=== PATIENT | male | born 1955 | race Caucasian/White ===

== ENCOUNTER → 2024-08-13 10:56 | Outpatient (REF) | payer MEDICARE, SELFPAY ==
--- NOTE | 2024-08-09 14:42 | PTCARENOTE ---
pt arrived 08/10/24 for port placement, on arrival and assessment, pt states he had a cup of coffee and did not stop his tube feedings until 9am for an 11am procedure. per protocol, cannot administer moderate sedation. pt's procedure rescheduled to
Sunday 08/13. instructions given, pt verbalizes understanding.
[2024-08-13 11:21] VITALS: BP 116/63; BP_SYST 70
[2024-08-13] MEDS: ANCEF 10 IV (12:13)
[2024-08-13 13:20] VITALS: BP 107/71
[2024-08-13 13:25] VITALS: BP 111/73
[2024-08-13 13:30] VITALS: BP 104/62
[2024-08-13 13:35] VITALS: BP 115/74
== END ==
LOC: RADI 10:56
PROVIDERS: ATTENDING PHYSICIAN Internal Medicine Hematology & Oncology
DX: C15.5 Malignant neoplasm of lower third of esophagus (principal)
CPT/HCPCS: 36561; 76937; 77001; 99152; 99153; C1788

== ENCOUNTER → 2024-08-20 14:30 | Outpatient (REF) | payer MEDICARE, SELFPAY ==
[2024-08-20 14:40] LABS: % Basophils 0.3 % (0-2); % Eosinophils 3.8 % (0-6); % Immature Granulocytes 0.5 % (0-0.5); % Monocytes 10.3 % (1.7-9.3); % Neutrophils 70.1 % (42.2-75.2); Absolute Eosinophils 0.3 10^3/uL (0-0.7); Absolute Monocytes 0.7 10^3/uL (0.1-0.6); Absolute Neutrophils 4.6 10^3/uL (1.4-6.5); Hematocrit 38.6 % (39.0-52.0); Hemoglobin 12.7 g/dL (13.0-18.0); Mean Corp Hgb Conc. 32.9 g/dL (33.0-37.0); Mean Corpuscular Hgb 31.3 pg (27.0-31.0); Mean Corpuscular Volume 95.1 fL (80.0-94.0); Mean Platelet Volume 10.2 fL (7.4-10.4); Platelet Count 201 10^3/uL (130-400); Red Blood Cell Count 4.06 10^6/uL (4.70-6.10); Red Cell Dist. Width 12.6 % (11.5-14.5); White Blood Cell Count 6.6 10^3/uL (4.8-10.8)
[2024-08-20 15:14] LABS: ALT (SGPT) 20 U/L (0-50); AST (SGOT) 20 U/L (17-59); Albumin 3.8 g/dl (3.5-5.0); Alkaline Phosphatase 104 U/L (38-126); Blood Urea Nitrogen 21 mg/dl (9-20); Carbon Dioxide 25 mmol/L (22-30); Chloride 100 mmol/L (98-107); Glucose 108 mg/dl (70-99); Potassium 4.2 mmol/L (3.5-5.1); Sodium 135 mmol/L (135-145); Total Bilirubin 0.5 mg/dl (0.2-1.3); Total Protein 6.3 g/dl (6.3-8.2); eGFR > 60.00
== END ==
LOC: OIDL 14:30
PROVIDERS: ATTENDING PHYSICIAN Internal Medicine Hematology & Oncology
DX: C15.5 Malignant neoplasm of lower third of esophagus (principal)
CPT/HCPCS: 80053; 85025

== ENCOUNTER → 2024-08-22 14:32 | Outpatient (REF) | payer MEDICARE, SELFPAY ==
[2024-08-22 16:38] LABS: % Basophils 0.1 % (0-2); % Eosinophils 0.2 % (0-6); % Immature Granulocytes 7.5 % (0-0.5); % Lymphocytes 3.2 % (20.5-51.1); Absolute Eosinophils 0.1 10^3/uL (0-0.7); Absolute Lymphocytes 0.8 10^3/uL (1.2-3.4); Absolute Monocytes 2.6 10^3/uL (0.1-0.6); Absolute Neutrophils 20.6 10^3/uL (1.4-6.5); Hematocrit 41.5 % (39.0-52.0); Hemoglobin 13.9 g/dL (13.0-18.0); Mean Corp Hgb Conc. 33.5 g/dL (33.0-37.0); Mean Corpuscular Hgb 31.7 pg (27.0-31.0); Mean Corpuscular Volume 94.7 fL (80.0-94.0); Nucleated Red Blood Cells % 0.5 % (-); Platelet Count 280 10^3/uL (130-400); Red Blood Cell Count 4.38 10^6/uL (4.70-6.10); Red Cell Dist. Width 13.2 % (11.5-14.5)
[2024-08-22 17:06] LABS: ALT (SGPT) 22 U/L (0-50); AST (SGOT) 28 U/L (17-59); Albumin 4.1 g/dl (3.5-5.0); Alkaline Phosphatase 168 U/L (38-126); Blood Urea Nitrogen 26 mg/dl (9-20); Calcium 9.7 mg/dl (8.4-10.2); Carbon Dioxide 21 mmol/L (22-30); Chloride 96 mmol/L (98-107); Glucose 161 mg/dl (70-99); Magnesium 2.1 mg/dl (1.6-2.3); Potassium 4.4 mmol/L (3.5-5.1); Sodium 130 mmol/L (135-145); Total Bilirubin 0.7 mg/dl (0.2-1.3); Total Protein 6.6 g/dl (6.3-8.2); eGFR > 60.00
== END ==
LOC: OIDL 14:32
PROVIDERS: ATTENDING PHYSICIAN Internal Medicine Hematology & Oncology
DX: C15.5 Malignant neoplasm of lower third of esophagus (principal)
CPT/HCPCS: 80053; 83735; 85025

== ENCOUNTER 2024-08-24 23:23 | Inpatient (IN) | payer MEDICARE, SELFPAY ==
[2024-08-24 23:37] VITALS: BP 127/70; BMI 20.9
[2024-08-25] VITALS (8 sets, daily range): BP systolic 123–137; BP diastolic 61–75; PULSE 91–93; O2SAT 96–97; BMI 20.9
--- NOTE | 2024-08-25 00:33 | HPS.HSE ---
Addendum entered and electronically signed by Michael [facility] DO 08/25/24 01:18:
A/P:
Anemia
- Hgb = 10.1 compared to recent outpatient labs of 12-13.
- ? GI blood loss given stools described as 'black' and known distal esophageal tumor.
- ? chemo effect / cytopenia.
- IV PPI BID for now.
- Follow H&H for changes.
- GI eval as noted.
Original Note:
Family Physician
-
Family Physician: INTERVIEWE UNKNOWN - PT NOT
Chief Complaint
-
N/V/D
History of Present Illness
Patient is a 69y M with PMH significant for recently diagnosed esophageal cancer who presents to in transfer from [facility] where he was admitted for diarrhea and weakness. Patient was recently diagnosed with lower esophageal cancer and
has been followed by Dr. Ramos. He completed his initial treatment of chemo (FLOT) 10 days ago. Plan is for 4 courses of chemo, surgical resection and an additional 4 courses of chemo. Patient notes that he received GCSF following the chemo
treatment (on Tuesday of this week). On Tuesday and , patient noted development of dark / black diarrhea x multiple episodes. He became progressively weak and fatigued. He also had nausea with a few episodes of dark colored emesis.
Patient called 911 on and was taken to [facility] for evaluation.
At that facility he was treated for diverticulitis, SBO, CODY and RUL Pneumonia.
NG was placed and patient states that he was given IVFs and antibiotics.
Reviewed available records from [facility]. Patient treated for sigmoid diverticulitis by CT scan as well as SBO. IV cefepime, IV PPI and NG decompression.
Significant CODY with SCR > 3 despite IVFs. Baseline reportedly around 1.5.
Lactate level significantly elevated on initial admission at 6.5 - now 2.0 today.
Patient states that he feels improved at this time from his initial presentation to [facility].
He does state that he continues to have loose, dark colored stools multiple times per day.
He denies any abdominal pain, fevers / chills or other focal symptoms. He has no respiratory complaints.
Medical History
Past Medical History
Past Medical History: Reports Other
Additional Past Medical History:
Esophageal Cancer
Skin Cancer
Past Surgical History: Reports Other
Additional Past Surgical History:
R ACW Port Placement
J Tube Placement
Skin Cancer Excision
Social History
Tobacco: Non-smoker
Alcohol: Daily (History of daily alcohol use: 2-3 mixed drinks daily and 'some shots'. No alcohol since cancer diagnosis July 2024.)
Family History
Family History: Other (Mother: Breast Cancer, Colon Cancer, DM)
Allergies / Home Medications
Allergies reflects when Allergies were last updated in [facility].
Home Medications with original date entered in [facility]
Allergy/Medication List:
No chronic meds prior to cancer diagnosis.
Now on chemo, GCSF and supportive medications.
No hospital med list to review from [facility].
Review of Systems
-
History Source: Patient
A 12 point ROS was completed and negative except as noted: Yes
Constitutional: Reports Weight Loss and Fatigue; Denies Fever or Chills
EENT: Denies Sore Throat
Respiratory: Denies Cough or Trouble Breathing
Cardiac: Denies Chest Pain or Palpitations
Abdomen/GI: Reports Nausea, Vomiting, Diarrhea and Black Stools; Denies Abdominal Pain
: Denies Dysuria or Frequency
Musculoskeletal: Denies Joint Pain or Edema
Neurological: Denies Dizzy or Headache
Psych: Denies Depression or Anxiety
Physical Exam
Vital Signs
Vital Signs
Temp Pulse Resp BP Pulse Ox
98.0 F 92 18 127/70 97
08/24/24 23:37 08/24/24 23:37 08/24/24 23:37 08/24/24 23:37 08/24/24 23:37
Physical Exam
General: Other (69y M in no acute distress.)
HEENT: Moist mucous membranes, PERRLA and Other (NG in place.)
Respiratory: Clear; No Wheezes, Rales or Rhonchi
Cardiac: S1/S2 and Regular Rhythm; No Murmur
GI: Other (Softly distended. Hyperactive bowel sounds. J-tube in place draining bilious fluid to gravity. No focal tenderness.)
Musculoskeletal: No Clubbing, No Cyanosis and No Edema
Neuro: AO x 3
Impression/Plan
-
A/P: Patient is a 69y M with PMH significant for recently diagnosed esophageal cancer s/p initial course of chemo who was transferred to from [facility] where he initially presented on 08/23/24 c/o N/V/D.
N/V/D
Sigmoid Diverticulitis
SBO v Enteritis
- Admit for further evaluation and treatment.
- CT scan reviewed - fluid filled loops of bowel from esophagus / stomach through the colon.
- Some wall thickening at proximal sigmoid colon - ? acute diverticulitis.
- Seems most c/w gastroenteritis > SBO, especially given profuse passage of stools.
- Will continue abx for now with Zosyn alone - though symptoms may all be secondary to chemo effect / enteritis.
- Continue supportive care with IVFs, antiemetics, etc.
- Heme test stools given black appearance.
- GI and Oncology evaluations for additional recommendations.
- Will ask Radiology to upload CT images for formal local interpretation.
- Maintain NG to LIMS and J-tube to gravity for now. Defer to GI for further recommendations.
CODY
Lactic Acidosis
- SCr = 3.3 and lactate = 6.5 on initial presentation.
- Lactate since improved through SCr remains elevated.
- Continue IVF support and follow I/Os, daily weights, etc.
- Bladder scan protocol and cath if needed.
- Continue to follow for changes in labs / lytes.
- Seems that CODY, acidosis, etc are largely due to hypovolemia from GI losses.
Non-Ischemic Myocardial Injury
- Troponin somewhat elevated at [facility]. No complaints of chest pain / dyspnea.
- Normal EKG.
- Trended down after admission (25 to 19). No need to follow further unless new symptoms develop.
Leukocytosis
- ? secondary to infection / diverticulitis versus GCSF which patient received earlier this week.
- Follow for return to baseline.
DM-II
- Follow glucose and cover with SSI as needed.
- Not on any medications for DM prior to this admission.
- A1C at [facility] was 6.6%.
Distal Esophageal Cancer
- s/p 1st cycle of chemo.
- Continue PPI.
- Oncology eval as noted above.
- Resume nutrition support via TF once GI symptoms are improved.
DVT Prophylaxis: SCDs
Code Status: Full
[2024-08-25 00:51] LABS: Hematocrit 30.8 % (39.0-52.0); Hemoglobin 10.1 g/dL (13.0-18.0); Mean Corp Hgb Conc. 32.8 g/dL (33.0-37.0); Mean Corpuscular Hgb 30.7 pg (27.0-31.0); Mean Corpuscular Volume 93.6 fL (80.0-94.0); Mean Platelet Volume 10.3 fL (7.4-10.4); Platelet Count 206 10^3/uL (130-400); Red Blood Cell Count 3.29 10^6/uL (4.70-6.10); Red Cell Dist. Width 13.6 % (11.5-14.5); White Blood Cell Count 25.5 10^3/uL (4.8-10.8)
[2024-08-25 00:55] LABS: Blood Urea Nitrogen 65 mg/dl (9-20); Calcium 8.4 mg/dl (8.4-10.2); Carbon Dioxide 18 mmol/L (22-30); Chloride 119 mmol/L (98-107); Estimated Creatinine Clearance 30 ml/min; Glucose 89 mg/dl (70-99); Potassium 3.9 mmol/L (3.5-5.1); Sodium 142 mmol/L (135-145); eGFR 33.66
[2024-08-25] MEDS: ZOSYN 50 IV ×4 (01:22→21:39)
[2024-08-25] MEDS: NSS 1000 IV ×2 (01:49→08:54)
[2024-08-25 02:06] LABS: Absolute Neutrophils -Man Diff 18.8 10^3/uL (1.4-6.5); Band Neutrophils 24 % (0-3); Lymphocytes 10 % (20-51); Metamyelocytes 5 % (-); Monocytes 9 % (2-9); Myelocytes 2 % (-); Segmented Neutrophils 50 % (42-75)
[2024-08-25 02:07] LABS: Nucleated Red Blood Cells 4 (-); Platelets Checked Yes
[2024-08-25 02:10] LABS: Total Cells Counted 100; Toxic Granulation 1+
[2024-08-25] MEDS: PROTONIX IV 40 MG IV ×2 (02:11→14:34)
[2024-08-25] MEDS: NSS (PRESERVATIVE FREE) 10 ML IV ×2 (02:11→14:34)
[2024-08-25 02:12] LABS: Normal RBC Morphology Yes
--- NOTE | 2024-08-25 05:20 | CON.ONC ---
Impression
Impression
trend CBC-- continue NG/ J tube drainage
Plan
Plan
await recovery following bowel rest
Patient History
History of Present Illness
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
outpatient PET CT scan 07/20/2024 revealed evidence of a GE junction lesion measuring 4.5 x 2.7 cm with regional babak involvement.. He had a J-tube placed he has had excellent nutritional support with 14-hour day feeding and no weight loss. He
initiated FLOT chemotherapy w/ CSF support 08/14/2024. He presented to [facility] ER following repeated episodes of n/v/ diarrhea for which imaging suggested bowel obstruction/diverticulitis for which transfer was advised.
Past-Medical/Surgical History
as per HPI
Patient Medication
�Medication �Instructions �Recorded �Confirmed �Last Taken �Type
Unobtainable 08/25/24 08/25/24 Unknown History
Active Medications
Generic Name Dose Route Start Last Admin
Trade Name Freq PRN Reason Stop Dose Admin
Dextrose 12.5 grams 08/25/24 01:02
Dextrose 50% (0.5 Grams/Ml) 50 Ml Syringe IV 09/22/24 01:01
[id number] PRN
hypoglycemia
Protocol
Glucagon 1 mg 08/25/24 01:02
Glucagon 1 Mg Vial IM 09/22/24 01:01
PRN PRN
hypoglycemia
Protocol
Sodium Chloride 1,000 mls @ 125 mls/hr 08/25/24 00:30 08/25/24 01:49
Nss IV 1,000 mls
.Q8H JUAN MANUEL Administration
Piperacillin Sod/Tazobactam Sod 2.25 grams in 50 mls @ 100 mls/hr 08/25/24 02:00 08/25/24 01:22
Zosyn IV 50 mls
Q6H JUAN MANUEL Administration
Insulin Aspart 0 units 08/25/24 07:30
Insulin Aspart Low Resistance 300 Units/3 Ml Pen.Injctr SC 09/22/24 07:29
AC JUAN MANUEL
Protocol
Ondansetron HCl 4 mg 08/25/24 00:24
Ondansetron 4 Mg/2 Ml Vial IV 09/22/24 00:23
Q6HPRN PRN
nausea and vomiting
Pantoprazole Sodium 40 mg 08/25/24 02:00 08/25/24 02:11
Pantoprazole Sodium 40 Mg/10 Ml Vial IV 09/22/24 01:59 40 mg
Q12H JUAN MANUEL Administration
Sodium Chloride 10 ml 08/25/24 02:00 08/25/24 02:11
Sodium Chloride 0.9% (Preservative Free) 10 Ml Vial IV 09/22/24 01:59 10 ml
Q12H JUAN MANUEL Administration
Sodium Chloride 0 flush 08/25/24 01:00
Sodium Chloride 0.9% (Flush) Syringe IV 09/22/24 00:59
PER PROTOCOL JUAN MANUEL
Review of Systems
-
History Source: Patient
All Other Systems: Reviewed and Negative (animated-- other than NG/ J tube drainage no significant pain)
Physical Exam
-
General: No Apparent Distress
HEENT: Moist Mucous Membranes
Cardiology: Normal Sinus Rhythm
Pulmonary: Clear
GI: Normal Bowel Sounds and No Organomegaly
Genito-Urinary: No Costovertebral Tenderness
Musculoskeletal: Edema. Left Upper Extrem and Edema, Right Lower Extrem
Neurology: No Lateralizing Symptoms
Labs
Lab Results
WBC 25.5 10^3/uL (4.8-10.8) H 08/25/24 00:35
RBC 3.29 10^6/uL (4.70-6.10) L 08/25/24 00:35
Hgb 10.1 g/dL (13.0-18.0) L D 08/25/24 00:35
Hct 30.8 % (39.0-52.0) L 08/25/24 00:35
MCV 93.6 fL (80.0-94.0) 08/25/24 00:35
MCH 30.7 pg (27.0-31.0) 08/25/24 00:35
MCHC 32.8 g/dL (33.0-37.0) L 08/25/24 00:35
RDW 13.6 % (11.5-14.5) 08/25/24 00:35
Plt Count 206 10^3/uL (130-400) D 08/25/24 00:35
MPV 10.3 fL (7.4-10.4) 08/25/24 00:35
Creatinine 2.1 mg/dL (0.7-1.3) H 08/25/24 00:35
Vital Signs
Vital Signs
Temp Pulse Resp BP Pulse Ox
98.0 F 91 18 130/66 98
08/25/24 03:07 08/25/24 03:07 08/25/24 03:07 08/25/24 03:07 08/25/24 03:07
[2024-08-25 06:18] LABS: Glucose - Point of Care 79 mg/dl (70-99)
[2024-08-25 07:39] LABS: Blood Urea Nitrogen 61 mg/dl (9-20); Calcium 8.5 mg/dl (8.4-10.2); Carbon Dioxide 18 mmol/L (22-30); Chloride 120 mmol/L (98-107); Estimated Creatinine Clearance 31 ml/min; Glucose 72 mg/dl (70-99); Magnesium 2.7 mg/dl (1.6-2.3); Potassium 3.5 mmol/L (3.5-5.1); Sodium 147 mmol/L (135-145); eGFR 35.68
[2024-08-25 07:50] LABS: Hematocrit 31.1 % (39.0-52.0); Hemoglobin 10.3 g/dL (13.0-18.0); Mean Corp Hgb Conc. 33.1 g/dL (33.0-37.0); Mean Corpuscular Volume 93.7 fL (80.0-94.0); Mean Platelet Volume 10.8 fL (7.4-10.4); Platelet Count 216 10^3/uL (130-400); Red Blood Cell Count 3.32 10^6/uL (4.70-6.10); Red Cell Dist. Width 13.7 % (11.5-14.5)
--- NOTE | 2024-08-25 09:29 | W.PN.HOSP.TC ---
Addendum entered and electronically signed by Nicole Andrade DO 08/25/24 10:17:
K low, 3.5, will add 10meq in the fluids and repeat BMP tonight
Original Note:
Today's Communication/Plan
-
See A/P above plpus:
#Hypernatremia
-Discussed the patient w Nephro today, with recs to start 1/2 NS at 100 mL per hour, will repeat BMP tonight, check urine sodium and urine creatinine today and Consider Nephro Cx tomorrow if labs not improving/worsening
-not on TOY/NSAIDs, avoid nephrotoxic agents and renally dose IV abx
Assessment / Plan
Assessment / Plan
Patient is a 69y M with PMH significant for recently diagnosed esophageal cancer who presents to in transfer from [facility] where he was admitted for diarrhea and weakness. Patient was recently diagnosed with lower esophageal cancer and
has been followed by Dr. Ramos. He completed his initial treatment of chemo (FLOT) 10 days ago. Plan is for 4 courses of chemo, surgical resection and an additional 4 courses of chemo. Patient notes that he received GCSF following the chemo
treatment (on Tuesday of this week). On Tuesday and , patient noted development of dark / black diarrhea x multiple episodes. He became progressively weak and fatigued. He also had nausea with a few episodes of dark colored emesis.
Patient called 911 on and was taken to [facility] for evaluation.
At that facility he was treated for diverticulitis, SBO, CODY and RUL Pneumonia.
NG was placed and patient states that he was given IVFs and antibiotics.
Patient treated for sigmoid diverticulitis by CT scan as well as SBO. - txt's w IV cefepime, IV PPI and NG decompression.
Significant CODY with SCR > 3 despite IVFs. Baseline reportedly around 1.5.
Lactate level significantly elevated on initial admission at 6.5 - now 2.0 today.
N/V/D - improving , cont NG tube to suction, diarrhea present but less
Sigmoid Diverticulitis
SBO v Enteritis
-remains afebrile overnight
-C. Diff negative for toxigenic C. Diff 08/25
-Norovirus pending
- CT scan reviewed - fluid filled loops of bowel from esophagus / stomach through the colon (at [facility])
- Some wall thickening at proximal sigmoid colon - ? acute diverticulitis.
- Seems most c/w gastroenteritis > SBO, especially given profuse passage of stools.
- Will continue abx for now with Zosyn alone for now- though symptoms may all be secondary to chemo effect / enteritis.
- Continue supportive care with IVFs, antiemetics, etc.
- Heme test stools given black appearance.
- GI and Oncology evaluations for additional recommendations.
- Will ask Radiology to upload CT images for formal local interpretation.
- Maintain NG to LIMS and J-tube to gravity for now. Defer to GI for further recommendations.
CODY, likely due to GI losses/volume depletion/hypovolemic
Lactic Acidosis/metabolic acidosis
-Hypernatremia Na 147 today
- SCr = 3.3 and lactate = 6.5 on initial presentation at [facility]
-Creatinine 2.0 today
- Lactate since improved through SCr remains elevated.
- Continue IVF support and follow I/Os, daily weights, etc. - add free water due to Na up to 147 from 142
- Bladder scan protocol and cath if needed-added
- Continue to follow for changes in labs / lytes.
-I discussed the patient w Nephro today, with recs to start 1/2 NS at 100 mL per hour, will repeat BMP tonight, check urine sodium and urine creatinine today and Consider Nephro Cx tomorrow if labs not improving/worsening
-not on TOY/NSAIDs, avoid nephrotoxic agents and renally dose IV abx
Non-Ischemic Myocardial Injury
- Troponin somewhat elevated at [facility]. No complaints of chest pain today, no SOB, no palps
- Normal EKG.
- Trended down after admission (25 to 19). No need to follow further unless new symptoms develop.
Leukocytosis
- ? secondary to infection / diverticulitis versus GCSF which patient received earlier this week.
-Slightly worse today 26.0 from 25.5 - cont IV Zosyn, consider ID consultation
-check urine and culture
- Follow for return to baseline.
DM-II
- Follow glucose and cover with SSI as needed.
- Not on any medications for DM prior to this admission.
- A1C at [facility] was 6.6%.
-will also add D5 to the fluid due to pt NPO w borderline low glucose
Distal Esophageal Cancer
- s/p 1st cycle of chemo.
- Continue PPI IV BID
- Oncology eval as noted above.
- Resume nutrition support via TF once GI symptoms are improved.
-GI Cx appreciated
DVT Prophylaxis: SCDs
Code Status: Full
Anticipated Discharge: > 48 hours
Subjective/Interval History
-
Date of Service: August 25, 2024
The patient is feeling better than he did yesterday. He has less stool output, but what he has is dark / black stool that is watery without BRB.
NG tube to suction w green liquid output.
No abdominal pain.
He is sitting up in chair, very conversant, AF, no CP, no SOB, nausea.
J-tube in place.
Objective Data
-
Labs:
Laboratory Results
08/25/24 08/25/24
00:35 05:58
WBC 25.5 H 26.0 H
Hgb 10.1 L D 10.3 L
Hct 30.8 L 31.1 L
Plt Count 206 D 216
Sodium 142 D 147 H
Potassium 3.9 3.5
Chloride 119 H 120 H
Carbon Dioxide 18 L 18 L
BUN 65 H 61 H
Creatinine 2.1 H 2.0 H
Glucose 89 72
Calcium 8.4 8.5
Vital Signs:
Vital Signs
Temp Pulse Resp BP Pulse Ox
98.3 F 49 18 137/61 99
08/25/24 07:16 08/25/24 07:16 08/25/24 07:16 08/25/24 07:16 08/25/24 07:16
I&O
08/24/24 08/25/24 08/26/24
06:59 06:59 06:59
Intake Total 675 / 675
Output Total 1000 / 1000
Balance -325 / -325
Review of Systems
-
All other systems: Reviewed and negative (other than as per above)
Physical Exam
-
General: Well Developed, Well Nourished, No Apparent Distress and Comfortable
HEENT: Normocephalic, Atraumatic and Moist Mucous Membranes
Respiratory: Clear to Auscultation
Cardiac: Regular Rhythm and S1/S2
GI: Soft, Nontender, Nondistended and Other (J-tube site c/d/i, NG tube to suction, w green watery ouput)
Musculoskeletal: No Clubbing, No Cyanosis and No Edema
Skin: Warm and Dry
Neuro: AO x 3 and No Motor Deficits
Psych: Calm
--- NOTE | 2024-08-25 09:40 | CON.GI ---
Addendum entered and electronically signed by Weston Hernandez MD 08/25/24 12:30:
I saw and examined the patient.
The POLYGRAPH OPERATOR or PA's note was reviewed and I agree with the note.
Comment:
Pt is a 69 y/o man with a hx of esopahgeal cancer on chemo with Jtube with a fatigue, diarrhea, nausea, vomiting admitted to [facility] and transferred. Has a NGT draining and Jtube to gravity. feeling better since transfer.
abd: j-tube, distended but not tense
impression
esophageal ca
ileus likely enteritis
plan:
continue NGT and Jtube to gravity
follow hgb
IV PPI an antiemetic
oncology following for esophageal ca
will likely reimage if NGT drainage continues
Original Note:
Consultation
-
Date/Time Consultation Requested: 08/25/2428
Date/Time Consultation Performed: 08/25/24939
Requesting Provider: Dr. [facility]
Performing Provider: Dr. Hernandez/[facility] Cee
Reason for Consultation: enteritis/esoph cancer
Medical History
Chief Complaint / HPI
Chief Complaint: n/v/d
History of Present Illness:
69-year-old male with past medical history of recently diagnosed esophageal cancer ([facility]), after presenting for food impaction on 07/03/2024 with ulcerated obstructive mass that is high-grade adenocarcinoma at the GE junction.
Staging as an outpatient PET CT scan on 07/20/2024 revealed evidence of GE junction lesion measuring 4.5 x 2.7 cm with regional babak involvement. Patient had port placed NG tube placed for nutritional support. Started chemotherapy 08/14/2024. Who
presented to [facility] on after having acute onset of nausea, vomiting and diarrhea that started on Tuesday. The patient states he had upwards of 35 episodes of such. He states it was black in color from both ends. Per
admission records the patient was treated for diverticulitis, small bowel obstruction, CODY and right upper lobe pneumonia. NG tube was placed and patient was given IV fluids and antibiotics. He was started on IV cefepime, IV PPI and NG tube
decompression. At [facility] he had a lactate of 6.5. On presentation here was 2.0. The patient was transferred here for continuity of care given his oncologist is at [facility]. We are asked to evaluate for the same. At the
present time the patient states that he is feeling improved compared to arrival at [place]. He has an NG tube in place with 1 L of bilious fluid removed. J-tube has been to gravity with scant bilious drainage. He had 1 loose bowel movement this
morning which has been collected. Negative for C. difficile. Norovirus and stool culture are pending. He still does have significant abdominal distention. WBC 26.0, hemoglobin 10.3, hematocrit 31.1, platelets 216, sodium 147, potassium 3.5,
chloride 120, CO2 18, BUN 61, creatinine 2.0.
Past Medical History
Past Medical History: Other (Esophageal cancer (adenocarcinoma))
Past Surgical History: Other (Right-sided chest wall port, J-tube)
Social History
Tobacco: Non-Smoker
Alcohol: Daily (Recently quit June, prior to that 2-3 drinks daily)
Drug: None
Family History
Family History: Other (Mother history of colon cancer)
Allergies / Home Medications
Allergy/AdvReac Type Severity Reaction Status Date / Time
No Known Allergies Allergy Unverified 08/08/24 16:36
�Medication �Instructions �Recorded
Unobtainable 08/25/24
Review of Systems
-
All other systems: A 12 pt ROS was Negative except as stated above in HPI
Vital Signs
Temp Pulse Resp BP Pulse Ox
98.3 F 49 18 137/61 99
08/25/24 07:16 08/25/24 07:16 08/25/24 07:16 08/25/24 07:16 08/25/24 07:16
Physical Exam
Exam
General: No Apparent Distress
HEENT: Other (NG tube in place, 1 L bilious fluid in canister)
Respiratory: Clear (Right-sided chest wall port)
Cardiac: Regular Rhythm
GI: Soft, Non Tender, Normal Bowel Sounds, Distended and Other (J-tube in place, scant drainage to gravity)
Skin: Warm and Dry
Neuro: AO x 3
Psych: Calm
Results
WBC 26.0 10^3/uL (4.8-10.8) H 08/25/24 05:58
Hgb 10.3 g/dL (13.0-18.0) L 08/25/24 05:58
Hct 31.1 % (39.0-52.0) L 08/25/24 05:58
MCV 93.7 fL (80.0-94.0) 08/25/24 05:58
Plt Count 216 10^3/uL (130-400) 08/25/24 05:58
Sodium 147 mmol/L (135-145) H 08/25/24 05:58
Potassium 3.5 mmol/L (3.5-5.1) 08/25/24 05:58
Chloride 120 mmol/L (98-107) H 08/25/24 05:58
Carbon Dioxide 18 mmol/L (22-30) L 08/25/24 05:58
BUN 61 mg/dl (9-20) H 08/25/24 05:58
Creatinine 2.0 mg/dL (0.7-1.3) H 08/25/24 05:58
Calcium 8.5 mg/dl (8.4-10.2) 08/25/24 05:58
Diagnostic Image Results:
CT performed at [facility] (unavailable for me to review) per chart: Fluid-filled loops of bowel from esophagus/stomach through the colon. Some wall thickening and proximal sigmoid colon.
-- I did look for records in patient's chart. Unable to find. There is a disc attached to chart. Internal medicine attending has asked radiology to upload CT images for formal local interpretation.
Prior GI Procedures:
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
GE junction lesion measuring 4.5 x 2.7 cm with regional babak involvement.
Colonoscopy:
Assessment / Plan
-
69-year-old male with past medical history of recently diagnosed esophageal cancer ([facility]), after presenting for food impaction on 07/03/2024 with ulcerated obstructive mass that is high-grade adenocarcinoma at the GE junction.
Staging as an outpatient PET CT scan on 07/20/2024 revealed evidence of GE junction lesion measuring 4.5 x 2.7 cm with regional babak involvement. Patient had port placed NG tube placed for nutritional support. Started chemotherapy 08/14/2024. Who
presented to [facility] on after having acute onset of nausea, vomiting and diarrhea that started on Tuesday. The patient states he had upwards of 35 episodes of such. He states it was black in color from both ends. Per
admission records the patient was treated for diverticulitis, small bowel obstruction, CODY and right upper lobe pneumonia. NG tube was placed and patient was given IV fluids and antibiotics. He was started on IV cefepime, IV PPI and NG tube
decompression. At [facility] he had a lactate of 6.5. On presentation here was 2.0. The patient was transferred here for continuity of care given his oncologist is at [facility]. We are asked to evaluate for the same.
Impression:
Nausea, vomiting, diarrhea
Esophageal cancer (adenocarcinoma recently diagnosed 07/03/24) ulcerated obstructive mass at GE junction
Small bowel obstruction/ileus
-- Less likely small bowel obstruction given the fact that patient had multiple episodes of bowel movements from below
--No abdominal pain
Leukocytosis
Plan:
-Patient still with significant leukocytosis despite IV antibiotics
-Await stool culture, stool norovirus
-Would repeat abdominal imaging considering still with abdominal distention
-If with increasing abdominal discomfort would then repeat CT
-Continue NG tube to low intermittent suction given continuous distention and output
-Continue J-tube to gravity drainage
-Continue pantoprazole 40 mg IV twice daily
-Trend labs
-Further recommendations to be forthcoming
-
-
Thank you for consultation and allowing me to participate in the patient's care. Please call the teacher education director GI physician during the after hours with any questions or concerns.
[2024-08-25] MEDS: D5/0.45%NSS with KCL 10 MEQ 1000 IV ×2 (11:21→23:11)
[2024-08-25 12:08] LABS: Urine Sodium 71 mmol/L (30-90)
[2024-08-25 12:50] LABS: Glucose - Point of Care 70 mg/dl (70-99)
[2024-08-25] MEDS: NOVOLOG FLEXPEN-LOW RESISTANCE SC ×3 (13:23→23:48)
--- NOTE | 2024-08-25 15:33 | CM ---
Initial assessment completed with pt at bedside.
Pt is a 69yr old male admitted with diverticulitis.
At baseline, pt lives alone in a 2 story home with 1 step to enter and a 1 level living.
Pt is indep at baseline, and drives.
Pt claims that his friend aides with his dog daily.
Pt has a RW and cane at home but does not use them.
Pt had recent stay at [facility] for CA diagnosis and is being followed by [facility]. No SNF hx
PCP; Addis Pleitez, [facility]
Pharm; [facility]
PLAN; dc to home with [facility]
[2024-08-25 18:09] LABS: Glucose - Point of Care 91 mg/dl (70-99)
[2024-08-25 20:45] LABS: Blood Urea Nitrogen 48 mg/dl (9-20); Calcium 8.7 mg/dl (8.4-10.2); Carbon Dioxide 15 mmol/L (22-30); Chloride 120 mmol/L (98-107); Estimated Creatinine Clearance 39 ml/min; Glucose 115 mg/dl (70-99); Potassium 3.3 mmol/L (3.5-5.1); Sodium 146 mmol/L (135-145); eGFR 46.64
[2024-08-25] MEDS: KCL 270 MEQ IV (21:40)
[2024-08-25 23:46] LABS: Glucose - Point of Care 108 mg/dl (70-99)
[2024-08-26] MEDS: NSS (PRESERVATIVE FREE) 10 ML IV ×2 (03:04→14:40)
[2024-08-26] MEDS: PROTONIX IV 40 MG IV ×2 (03:06→14:40)
[2024-08-26] MEDS: ZOSYN 50 IV ×4 (03:07→20:39)
[2024-08-26 03:31] VITALS: BP 136/72
[2024-08-26 06:00] VITALS: BMI 20.3
[2024-08-26 06:07] LABS: Glucose - Point of Care 137 mg/dl (70-99)
[2024-08-26 06:29] LABS: Hemoglobin 9.7 g/dL (13.0-18.0); Mean Corp Hgb Conc. 33.4 g/dL (33.0-37.0); Mean Corpuscular Hgb 31.7 pg (27.0-31.0); Mean Corpuscular Volume 94.8 fL (80.0-94.0); Mean Platelet Volume 10.5 fL (7.4-10.4); Platelet Count 178 10^3/uL (130-400); Red Blood Cell Count 3.06 10^6/uL (4.70-6.10)
[2024-08-26 06:38] LABS: ALT (SGPT) 17 U/L (0-50); AST (SGOT) 28 U/L (17-59); Albumin 2.3 g/dl (3.5-5.0); Alkaline Phosphatase 99 U/L (38-126); Blood Urea Nitrogen 41 mg/dl (9-20); Calcium 8.5 mg/dl (8.4-10.2); Carbon Dioxide 19 mmol/L (22-30); Chloride 124 mmol/L (98-107); Estimated Creatinine Clearance 40 ml/min; Glucose 124 mg/dl (70-99); Potassium 3.8 mmol/L (3.5-5.1); Sodium 148 mmol/L (135-145); Total Bilirubin 0.2 mg/dl (0.2-1.3); Total Protein 4.7 g/dl (6.3-8.2)
[2024-08-26] MEDS: NOVOLOG FLEXPEN-LOW RESISTANCE SC ×4 (06:59→23:56)
[2024-08-26 07:26] VITALS: BP 139/63
--- NOTE | 2024-08-26 07:43 | W.PN.GI.CBS2 ---
Today's Communication / Plan
-
continue NGT
Assessment / Plan
-
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
Staging as an outpatient PET CT scan on 07/20/2024 revealed evidence of GE junction lesion measuring 4.5 x 2.7 cm with regional babak involvement. Patient had port placed NG tube placed for nutritional support. Started chemotherapy 08/14/2024. Who
presented to [facility] on after having acute onset of nausea, vomiting and diarrhea that started on Tuesday. The patient states he had upwards of 35 episodes of such. He states it was black in color from both ends. Per
admission records the patient was treated for diverticulitis, small bowel obstruction, CODY and right upper lobe pneumonia. NG tube was placed and patient was given IV fluids and antibiotics. He was started on IV cefepime, IV PPI and NG tube
decompression. At [facility] he had a lactate of 6.5. On presentation here was 2.0. The patient was transferred here for continuity of care given his oncologist is at [facility]. We are asked to evaluate for the same.
Impression:
Nausea, vomiting, diarrhea
Esophageal cancer (adenocarcinoma recently diagnosed 07/03/24) ulcerated obstructive mass at GE junction
Small bowel obstruction/ileus
-- Less likely small bowel obstruction given the fact that patient had multiple episodes of bowel movements from below
--No abdominal pain
Leukocytosis improving
Plan:Patient still with significant leukocytosis despite IV antibiotics
-norovirus negative
- abdominal xray with some SB mildly dilated loops (viewed report and images)
-Continue NG tube to low intermittent suction
-Continue J-tube to gravity drainage
-Continue pantoprazole 40 mg IV twice daily
- image tomorrow if not improved
-Trend labs
Subjective
Subjective
Date of Service: August 26, 2024
Pt with over 1L by NGT and 200 by Jtube. feels the same
Objective
Data Reviewed
Laboratory Data:
Laboratory Results
08/26/24 05:20
08/26/24 05:20
Laboratory Results
Magnesium 2.7 mg/dl (1.6-2.3) H 08/25/24 05:58
Total Bilirubin 0.2 mg/dl (0.2-1.3) 08/26/24 05:20
AST 28 U/L (17-59) 08/26/24 05:20
ALT 17 U/L (0-50) 08/26/24 05:20
Alkaline Phosphatase 99 U/L (38-126) 08/26/24 05:20
Vital Signs and I&O:
Vital Signs
Temp Pulse Resp BP Pulse Ox
97.6 F 51 18 139/63 98
08/26/24 07:26 08/26/24 07:26 08/26/24 07:26 08/26/24 07:26 08/26/24 07:26
I&O
08/25/24 08/26/24 08/27/24
06:59 06:59 06:59
Intake Total 675 / 675 1570 / 1570
Output Total 1000 / 1000 2350 / 2350
Balance -325 / -325 -780 / -780
Physical Exam
Physical Exam
GI: Soft and Non Distended (mildly distended, lisa)
Neuro: Non Focal
[2024-08-26 11:19] VITALS: BP 95/68
[2024-08-26 12:43] LABS: Absolute Neutrophils -Man Diff 13.6 10^3/uL (1.4-6.5); Band Neutrophils 11 % (0-3); Segmented Neutrophils 65 % (42-75)
[2024-08-26 12:44] LABS: Lymphocytes 11 % (20-51); Metamyelocytes 3 % (-); Monocytes 4 % (2-9); Myelocytes 6 % (-)
[2024-08-26 12:46] LABS: Anisocytosis Slight; Macrocytosis Slight; Normal RBC Morphology No; Platelets Checked YES
[2024-08-26 12:47] LABS: Ovalocytes FEW
[2024-08-26 12:48] LABS: Total Cells Counted 100
[2024-08-26 13:30] LABS: Glucose - Point of Care 85 mg/dl (70-99)
[2024-08-26 15:35] VITALS: BP 129/74
--- NOTE | 2024-08-26 15:54 | W.PN.HOSP.TC ---
Today's Communication/Plan
-
Continue IVF. Plan for NG tube per GI.
Assessment / Plan
Assessment / Plan
Historical summary:
69y M with PMH of esophageal cancer presents to in transfer from [facility] where he was admitted for diarrhea and weakness.
Recently diagnosed with lower esophageal cancer and has been followed by Dr. Ramos.
Completed his initial treatment of chemo (FLOT) 10 days ago.
Plan is for 4 courses of chemo, surgical resection and an additional 4 courses of chemo.
Patient notes that he received GCSF following the chemo treatment (on Tuesday of this week).
On Tuesday and , patient noted development of dark / black diarrhea x multiple episodes. He became progressively weak and fatigued. He also had nausea with a few episodes of dark colored emesis. Significant CODY with SCR > 3 despite
IVFs. Baseline reportedly around 1.5.
Lactate level significantly elevated on initial admission at 6.5 - now lower.
1. N/V/D - improving , cause not obvious.
cont NG tube to suction, diarrhea present but less
Could be:
Sigmoid Diverticulitis
SBO v Enteritis
-remains afebrile overnight
-C. Diff negative for toxigenic C. Diff 08/25
-Norovirus negative
- CT scan reviewed
- fluid filled loops of bowel from esophagus / stomach through the colon (at [place])
- Some wall thickening at proximal sigmoid colon - ? acute diverticulitis.
- Seems most c/w gastroenteritis > SBO, especially given profuse passage of stools.
- Continue abx for with Zosyn alone for now- (though symptoms may all be secondary to chemo effect / enteritis)
- Continue supportive care with IVFs, antiemetics, etc.
- GI and Oncology evaluations for additional recommendations.
- Maintain NG to LIMS and J-tube to gravity for now. Defer to GI for further recommendations.
2. CODY, likely due to GI losses/volume depletion/hypovolemic withLactic Acidosis/metabolic acidosis
Continue IV fluids
3. Hypernatremia
Continue IVF
4. Creatinine elevated
- Lactate since improved through SCr remains elevated.
- Continue IVF support and follow I/Os, daily weights, etc. - add free water as needed
- Bladder scan protocol and cath if needed-added
- Continue to follow for changes in labs / lytes.
- Nephro recommended:
1/2 NS at 100 mL per hour
repeat BMP
urine sodium and urine creatinine
avoid nephrotoxic agents and renally dose IV abx
5. Non-Ischemic Myocardial Injury
- Troponin elevated at [facility]. No complaints of chest pain today, no SOB, no palps
- Normal EKG.
- Troponin Trendingdown after admission (25 to 19).
- No need to follow further unless new symptoms develop.
6. Leukocytosis - ? secondary to infection / diverticulitis versus GCSF which patient received earlier this week.
- cont IV Zosyn,
-check urine and culture
- Follow for return to baseline.
7. DM-II
- Follow glucose and cover with SSI as needed.
- Not on any medications for DM prior to this admission.
- A1C at [facility] was 6.6%.
-added D5 to the fluid when he was NPO w borderline low glucose
8. Distal Esophageal Cancer
- s/p 1st cycle of chemo.
- Continue PPI IV BID
- Oncology eval as noted above.
- Resume nutrition support via TF once GI symptoms are improved.
-GI Cx appreciated
DVT Prophylaxis: SCDs
Code Status: Full
Anticipated Discharge: > 48 hours
Subjective/Interval History
-
Date of Service: August 26, 2024
Mouth feels dry
Objective Data
-
Labs:
Laboratory Results
08/26/24
05:20
WBC 18.0 H
Hgb 9.7 L
Hct 29.0 L
Plt Count 178
Sodium 148 H
Potassium 3.8
Chloride 124 H
Carbon Dioxide 19 L
BUN 41 H
Creatinine 1.5 H
Glucose 124 H
Calcium 8.5
Total Bilirubin 0.2
AST 28
ALT 17
Alkaline Phosphatase 99
Vital Signs:
Vital Signs
Temp Pulse Resp BP Pulse Ox
97.9 F 87 18 95/68 99
08/26/24 11:19 08/26/24 11:19 08/26/24 11:19 08/26/24 11:19 08/26/24 15:27
I&O
08/25/24 08/26/24 08/27/24
06:59 06:59 06:59
Intake Total 675 / 675 1570 / 1570
Output Total 1000 / 1000 2350 / 2350
Balance -325 / -325 -780 / -780
Review of Systems
-
History Source: Patient
All other systems: Reviewed and negative
Physical Exam
-
General: No Apparent Distress and Appears Chronically Ill
HEENT: Nose Appears Normal and Ears Appear Normal
Respiratory: Clear to Auscultation
Cardiac: Regular Rhythm and S1/S2
GI: Soft, Nontender and Nondistended
Musculoskeletal: No Clubbing, No Cyanosis and No Edema
Skin: Warm and Dry; Negative Rash
Neuro: Awake, Alert, Oriented and AO x 3
Psych: Calm
Data Reviewed
-
Labs: Labs Reviewed by me
[2024-08-26] MEDS: D5/0.45%NSS with KCL 10 MEQ 1000 IV (16:03)
--- NOTE | 2024-08-26 17:40 | PTCARENOTE ---
Patient with 18-beat run of v-tach; asymptomatic and sleeping. MD notified; no new orders.
[2024-08-26 18:39] LABS: Glucose - Point of Care 94 mg/dl (70-99)
[2024-08-26 19:14] VITALS: BP 125/74
[2024-08-26 23:22] VITALS: BP 113/67
[2024-08-26 23:52] LABS: Glucose - Point of Care 108 mg/dl (70-99)
[2024-08-27] MEDS: D5/0.45%NSS with KCL 10 MEQ 1000 IV (01:56)
[2024-08-27] MEDS: ZOSYN 50 IV ×5 (01:57→23:31)
[2024-08-27] MEDS: PROTONIX IV 40 MG IV ×2 (01:57→13:12)
[2024-08-27] MEDS: NSS (PRESERVATIVE FREE) 10 ML IV ×2 (01:57→13:12)
[2024-08-27 03:20] VITALS: BP 122/67
[2024-08-27 05:26] LABS: Hematocrit 30.1 % (39.0-52.0); Hemoglobin 9.8 g/dL (13.0-18.0); Mean Corp Hgb Conc. 32.6 g/dL (33.0-37.0); Mean Corpuscular Hgb 30.5 pg (27.0-31.0); Mean Corpuscular Volume 93.8 fL (80.0-94.0); Mean Platelet Volume 10.5 fL (7.4-10.4); Platelet Count 181 10^3/uL (130-400); Red Blood Cell Count 3.21 10^6/uL (4.70-6.10); Red Cell Dist. Width 13.8 % (11.5-14.5)
[2024-08-27 05:51] LABS: Blood Urea Nitrogen 30 mg/dl (9-20); Calcium 8.8 mg/dl (8.4-10.2); Carbon Dioxide 21 mmol/L (22-30); Chloride 120 mmol/L (98-107); Estimated Creatinine Clearance 40 ml/min; Glucose 111 mg/dl (70-99); Potassium 3.5 mmol/L (3.5-5.1); Sodium 149 mmol/L (135-145)
[2024-08-27 06:07] LABS: Glucose - Point of Care 121 mg/dl (70-99)
[2024-08-27] MEDS: NOVOLOG FLEXPEN-LOW RESISTANCE SC ×3 (06:12→18:26)
--- NOTE | 2024-08-27 07:27 | W.PN.HOSP.TC ---
Addendum entered and electronically signed by Cristian Sauceda MD 08/28/24 00:19:
Attending Addendum-
I saw and evaluated the patient. I reviewed the resident�s note and agree with findings and plan as documented in the resident�s note. Sub: Feel uncomfortable with NG tube in. no N/V abd pain. Full 12 point ROS reviewed and negative except as
documented Exam: Vitals reviewed in chart GEN-NAD HEENT NG tube in place draining dark back liquid heart RRR lungs clear abd J tube in place with greenish fluid present
# Probable Viral gastroenteritis
- s/p chemo- possible s/e
- r/o obs- check CT a/p
- cont NG tube to suction, diarrhea present but less
- GI on board
- NPO/NPJ for now
- C. Diff negative
- Norovirus negative
- cont zosyn for now day # 3
- Continue supportive care with IVFs, antiemetics, etc.
- Maintain NG to LIMS and J-tube to gravity for now. Defer to GI for further recommendations.
# CODY
-prerenal
-Continue IV fluids
-repeat BMP in am
# Hypernatremia
worsening
increased IVF
repeat BMP in am
# Non-Ischemic Myocardial Injury
- Troponin elevated at [facility]. No complaints of chest pain today, no SOB, no palps
- Normal EKG.
- Troponin Trending down after admission (25 to 19).
- No need to follow further unless new symptoms develop.
# Leukocytosis-
-resolving
-GCSF received last week
-cont IV Zosyn
- check CT A/P- r/o abscess
-check urine and culture
-repeat CBC in am
# DM-II
- Follow glucose and cover with SSI as needed.
- A1C at [facility] was 6.6%.
- start SSI
# Distal Esophageal Adenocarcinoma
- s/p 1st cycle of chemo.
- Continue PPI IV BID
- Oncology input appreciated
- Resume nutrition support via TF once GI symptoms are improved.
- GI Cx appreciated
DVT Prophylaxis: SCDs
Code Status: Full
Time spent coordinating care, review of plan of care with resident, personally reviewed records in EMR, med rec, consults, notes, labs, radiology, d/w nursing � 53 mins
Original Note:
Today's Communication/Plan
-
Transfer to [facility]
CT Abd/Pel with Oral contrast today.
Continue IVF with 1/2 NS and monitor electrolytes.
NG tube/J-tube to suction
Assessment / Plan
Assessment / Plan
Assessment: 69-year-old male with PMH of esophageal cancer s/p recent chemo (FLOT) 08/14/2024 for, s/p GCFS 08/21/24, followed by Dr. Ramos who was transferred from [facility] for diarrhea and weakness. Developed black tarry diarrhea 1 day
post GCFS which continued to worsen with resultant progressive weakness and fatigue, nausea and episodes of dark-colored emesis. Was seen at [facility] where he was treated for sigmoid diverticulitis, SBO identified by CT, CODY and RUL
pneumonia. Received IV cefepime, IV PPI and NG decompression.
Assessment/plan:
History of high-grade esophageal adenocarcinoma s/p first cycle of chemo.
-PET/CT 07/20/2024 positive for GE junction adenocarcinoma with regional babak involvement.
-1 dose of FLOT chemotherapy with CSF support 08/14/2024.
-Plan is for 4 courses of chemo followed by surgical resection and additional 4 courses of chemo.
-GI and oncology following.
-Transfer to [facility].
-Defer to GI for further management.
N/V/D
-N/V improved on IV Zofran,minimal diarrhea, remains afebrile, leukocytosis improving.
-Suspect gastroenteritis, SBO unlikely. C. difficile and norovirus negative.
-Per patient's brother (Rosalio), patient has chronic diarrhea that would not stop except when he is in the hospital.
-CT Abd/Pel w/ oral contrast pending
-Continue NG/J tube drainage.
-Continue IV PPI twice daily.
-Continue antibiotics with Zosyn and antiemetics.
-Defer to GI for NG tube management.
-Monitor hemodynamics
CODY
-CR improving currently 1.5.
-Most likely due to hypovolemia given lactic acidosis 6.5 on admission
-Continue IV fluids.
-Follow creatinine and volume status.
Hyponatremia
-Worsening.
-Free water deficit 2.3 L
-Due to hypovolemia, NG suction.
-Continue IV fluid/free water replacement.
-Urine sodium, urine creatinine WNL.
-Monitor I's and O's, daily weights.
-Avoid nephrotoxic agents.
-Nephrology consult.
Type 2 diabetes mellitus
-Diet controlled.
-A1c at 6% 6.6%.
-Follow serum glucose and cover with SSI.
DVT Prophylaxis: SCDs
Code Status: Full code
Anticipated Discharge: > 48 hours
Subjective/Interval History
-
Date of Service: August 27, 2024
I saw and examined the patient. Reports that nausea, vomiting, diarrhea has resolved. No acute complaints today. Denies abdominal pain, chest pain, shortness of breath, fever, chills.
Updated patient's brother Artie Santamaria. Patient's brother endorsed that patient has been having constant diarrhea which only stopped when he comes to the hospital and stops drinking.
Objective Data
-
Labs:
Laboratory Results
08/27/24
04:36
WBC 16.0 H
Hgb 9.8 L
Hct 30.1 L
Plt Count 181
Sodium 149 H
Potassium 3.5
Chloride 120 H
Carbon Dioxide 21 L
BUN 30 H
Creatinine 1.5 H
Glucose 111 H
Calcium 8.8
Vital Signs:
Vital Signs
Temp Pulse Resp BP Pulse Ox
97.8 F 75 18 122/67 99
08/27/24 03:20 08/27/24 03:20 08/27/24 03:20 08/27/24 03:20 08/27/24 03:20
I&O
08/26/24 08/27/24 08/28/24
06:59 06:59 06:59
Intake Total 1570 / 1570 620 / 620
Output Total 2350 / 2350 1250 / 1250
Balance -780 / -780 -630 / -630
Review of Systems
-
History Source: Patient
All other systems: Reviewed and negative
Physical Exam
-
General: No Apparent Distress and Appears Chronically Ill
HEENT: Nose Appears Normal and Ears Appear Normal
Respiratory: Clear to Auscultation
Cardiac: Regular Rhythm and S1/S2
GI: Soft, Tender (Mild tenderness LUQ/mid abdomen), Distended (Mildly distended) and Other (NG tube, G-tube in place and draining)
Musculoskeletal: No Clubbing, No Cyanosis and No Edema
Skin: Warm and Dry; Negative Rash
Neuro: Awake, Alert, Oriented and AO x 3
Psych: Calm
Data Reviewed
-
Diagnostic Radiology: Image personally visualized and interpreted, Report Reviewed by me and Discussed with Physician
CT Scan: Image personally visualized and interpreted, Report Reviewed by me and Discussed with Physician
Labs: Labs Reviewed by me and Discussed with Physician
Old Records: Reviewed
[2024-08-27 07:40] VITALS: BP 133/70
--- NOTE | 2024-08-27 08:28 | W.PN.ONC2 ---
Today's Communication / Plan
-
.
Impression
Impression
a/w SOB/ileus/diverticulitis -NGT
[facility] Esophageal adenocarcinoma diagnosed 07/03/24, ulcerated obstructive mass at GE junction, s/p C1 FLOT 08/14 with filgrastim x 6 doses, last 08/22
jejunostomy 06/2024
hypernatremia
CODY
leukocytosis secondary to GCSF +/- divertic/ileus- infectious w/u negative to date
normocytic anemia
Plan
Plan
NGT & Jtube to gravity - management per GI
on abx
on ppi
check iron studies, b12, folate, monitor for bleeding
chemotherapy will be resumed upon hospital discharge - optimize PT/OT/nutrition
Subjective/Objective
Subjective
no new complaints
denies BM or flatulence. Denies nausea, vomiting, or abdominal pain
Vital Signs:
Vital Signs
Temp Pulse Resp BP Pulse Ox
98.4 F 75 18 133/70 98
08/27/24 07:40 08/27/24 07:40 08/27/24 07:40 08/27/24 07:40 08/27/24 07:40
Lab Results:
Laboratory Data
WBC 16.0 10^3/uL (4.8-10.8) H 08/27/24 04:36
Hgb 9.8 g/dL (13.0-18.0) L 08/27/24 04:36
Plt Count 181 10^3/uL (130-400) 08/27/24 04:36
eGFR 50.40 08/27/24 04:36
Physical Exam
HEENT: Moist Mucous Membranes and Other (NGT); No Jaundice
Pulmonary: Clear
GI: Soft and Other (Jtube)
Extremities: No Edema
--- NOTE | 2024-08-27 09:25 | W.PN.GI.CBS2 ---
Addendum entered and electronically signed by Weston Hernandez MD 08/27/24 11:39:
I saw and examined the patient.
The COMPARISON SHOPPER or PA's note was reviewed and I agree with the note.
Comment:
Pt still with NGT drainage, no abdominal pain and walking around
alert, no distress
impresion:
esophageal cancer
Jtube
ileus vs sbo
plan;
CT scan with contrast through NGT (pt is tolerating)
IV PPI
antiemeticss
Original Note:
Today's Communication / Plan
-
CT with oral contrast today
Assessment / Plan
-
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
Staging as an outpatient PET CT scan on 07/20/2024 revealed evidence of GE junction lesion measuring 4.5 x 2.7 cm with regional babak involvement. Patient had port placed NG tube placed for nutritional support. Started chemotherapy 08/14/2024. Who
presented to [facility] on after having acute onset of nausea, vomiting and diarrhea that started on Tuesday. The patient states he had upwards of 35 episodes of such. He states it was black in color from both ends. Per
admission records the patient was treated for diverticulitis, small bowel obstruction, CODY and right upper lobe pneumonia. NG tube was placed and patient was given IV fluids and antibiotics. He was started on IV cefepime, IV PPI and NG tube
decompression. At [facility] he had a lactate of 6.5. On presentation here was 2.0. The patient was transferred here for continuity of care given his oncologist is at [facility]. We are asked to evaluate for the same.
Impression:
Nausea, vomiting, diarrhea
Esophageal cancer (adenocarcinoma recently diagnosed 07/03/24) ulcerated obstructive mass at GE junction
Small bowel obstruction/ileus
-- Less likely small bowel obstruction given the fact that patient had multiple episodes of bowel movements from below prior. Although still having large NGT output/J tube drainage.
--no flatus or BM anymore
--No abdominal pain
Leukocytosis improving slowly
Plan
-Obtain CT of abd/pelvis with oral contrast only via NGT and compare to CT from [place]. CT from [place] on the chart for review by Radiology.
-norovirus negative, c Diff negative. Awaiting stool culture.
- abdominal xray with some SB mildly dilated loops (viewed report and images)
-Continue NG tube to low intermittent suction
-Continue J-tube to gravity drainage
-Continue pantoprazole 40 mg IV twice daily
-Trend labs
Subjective
Subjective
Date of Service: August 27, 2024
Patient states that he feels 'a little less bloated' however has not had any stools or flatus. NGT has put out 900 cc of bilious drainage overnight and J tube had 200 cc of bilious drainage to gravity overnight as well. Patient still with abd
distention and some tenderness around area of LUQ/mid abdomen with palpation. Afebrile, however still with leukocytosis but coming down on Zosyn. Hgb essentially stable. No signs of GI bleeding.
Objective
Data Reviewed
Laboratory Data:
Laboratory Results
08/27/24 04:36
08/27/24 04:36
Laboratory Results
Magnesium 2.7 mg/dl (1.6-2.3) H 08/25/24 05:58
Total Bilirubin 0.2 mg/dl (0.2-1.3) 08/26/24 05:20
AST 28 U/L (17-59) 08/26/24 05:20
ALT 17 U/L (0-50) 08/26/24 05:20
Alkaline Phosphatase 99 U/L (38-126) 08/26/24 05:20
Vital Signs and I&O:
Vital Signs
Temp Pulse Resp BP Pulse Ox
98.4 F 75 18 133/70 98
08/27/24 07:40 08/27/24 07:40 08/27/24 07:40 08/27/24 07:40 08/27/24 07:40
I&O
08/26/24 08/27/24 08/28/24
06:59 06:59 06:59
Intake Total 1570 / 1570 620 / 620 1100 / 1100
Output Total 2350 / 2350 1250 / 1250 1750 / 1750
Balance -780 / -780 -630 / -630 -650 / -650
Physical Exam
Physical Exam
HEENT: Anicteric and Other (ngt in place draining dark green bile)
Cardiology: Normal Sinus Rhythm
Pulmonary: Clear
GI: Soft, Distended (mildly distended), Tender (mild tenderness LUQ and mid abd), Normal Bowel Sounds and Other (j tube in place left side, draining green bile)
Extremities: No Edema
Neuro: Non Focal
[2024-08-27 09:56] LABS: Iron 47 ug/dl (49-181)
[2024-08-27 10:05] LABS: Percent Saturation 22 % (20-50); Total Iron Binding Capacity 213 ug/dl (261-462)
[2024-08-27] MEDS: OMNIPAQUE 50 ML PO (11:08)
[2024-08-27 11:18] LABS: Lactic Acid 0.9 mmol/L (0.7-2.0)
--- NOTE | 2024-08-27 11:39 | PN.CDI ---
CDI
- -
CDI:
Physician Documentation Request
Admit Date: 08/24/24 23:23
Dear Doctor Lupe,
Patient admitted with small bowel obstruction
08/25 Hospitalist PN: 'K low, 3.5, will add 10meq in the fluids and repeat BMP tonight'
Based on the above, could you clarify in the progress notes, the appropriate diagnosis, if significant, that supports the above abnormalities and additional evaluation, monitoring and/or treatment rendered:
Hypokalemia
Abnormal lab value insignificant
Other
Use of terms such as suspected, likely, concern for, or probable (associated with a specific diagnosis that is being evaluated, monitored, or treated as if it exists) are acceptable and can be coded in the inpatient setting, when documented at the
time of discharge.
Thank you,
Sherie Portillo RN, BSN
CDI Specialist
Available via [place] text
Please use your independent medical judgment in providing your response.
[2024-08-27 11:40] VITALS: BP 116/62
[2024-08-27 12:17] LABS: Glucose - Point of Care 92 mg/dl (70-99)
--- NOTE | 2024-08-27 13:04 | PTCARENOTE ---
Liset Jimenez [phone] - pt given consent to give this individual medical information if calling the floor
[2024-08-27] MEDS: 0.45%NACL 1000 IV ×2 (13:12→23:31)
--- NOTE | 2024-08-27 13:42 | PTCARENOTE ---
pt for CT this afternoon. contrast given through NGT, pt tolerated. pt oob to chair x1 assist. IVF going through R SQ port and pt with new orders for woundcare around J tube.
--- NOTE | 2024-08-27 13:47 | WOUNDNOTE ---
WO RN note: Patient admitted with black diarrhea and weakness.
See H&P for complete history.
PMH: PMH significant for recently diagnosed esophageal cancer who presents to in transfer from [facility] where he was admitted for diarrhea and weakness. Patient was recently diagnosed with lower esophageal cancer and has been followed
by Dr. Ramos. He completed his initial treatment of chemo (FLOT) 10 days ago. Plan is for 4 courses of chemo, surgical resection and an additional 4 courses of chemo.
Wound Location and type/assessment: Patient admitted with: Excoriated skin surrounding J tube, bile leakage around tube causing skin irritation. Partial thickness scattered openings, painful reports patient.
Appetite:NGT
Pressure redistribution devices in place: Accumax, Amb. to chair, sitting in recliner chair.
Plan: Today cleaned skin with warm water, skin prepped periwound, Exuderm thin(Duoderm) cut to fit around tube, change q 3 days and prn drainage. Split gauze under bumper, change daily and prn soilage.
Will confirm orders with hospitalist and updated nurse.
Updated care plan and will follow as needed.
Note to case management of equipment requested for discharge: TBD
Recommend follow up at wound care center upon discharge.
[2024-08-27 15:45] VITALS: BP 113/69
[2024-08-27 16:30] VITALS: BP 113/69
--- NOTE | 2024-08-27 16:30 | CM ---
Met with patient at bedside.
esophageal ca
CT abd today
Current with [facility].
Referral placed in [facility]
PLAN: Home with [facility] health
[2024-08-27 18:16] LABS: Glucose - Point of Care 71 mg/dl (70-99)
[2024-08-27 23:46] VITALS: BP 112/70
[2024-08-28 00:40] LABS: Glucose - Point of Care 70 mg/dl (70-99)
[2024-08-28] MEDS: NOVOLOG FLEXPEN-LOW RESISTANCE SC ×4 (00:58→18:41)
[2024-08-28] MEDS: NSS (PRESERVATIVE FREE) 10 ML IV ×2 (02:31→14:58)
[2024-08-28] MEDS: PROTONIX IV 40 MG IV ×2 (02:31→14:58)
[2024-08-28 05:42] LABS: Hematocrit 28.8 % (39.0-52.0); Hemoglobin 9.3 g/dL (13.0-18.0); Mean Corp Hgb Conc. 32.3 g/dL (33.0-37.0); Mean Corpuscular Hgb 30.5 pg (27.0-31.0); Mean Corpuscular Volume 94.4 fL (80.0-94.0); Mean Platelet Volume 10.2 fL (7.4-10.4); Platelet Count 152 10^3/uL (130-400); Red Blood Cell Count 3.05 10^6/uL (4.70-6.10); White Blood Cell Count 14.2 10^3/uL (4.8-10.8)
[2024-08-28 05:53] VITALS: BMI 19.8
[2024-08-28 05:55] LABS: ALT (SGPT) 30 U/L (0-50); AST (SGOT) 37 U/L (17-59); Albumin 2.6 g/dl (3.5-5.0); Alkaline Phosphatase 75 U/L (38-126); Blood Urea Nitrogen 27 mg/dl (9-20); Calcium 8.6 mg/dl (8.4-10.2); Carbon Dioxide 18 mmol/L (22-30); Chloride 116 mmol/L (98-107); Estimated Creatinine Clearance 54 ml/min; Glucose 61 mg/dl (70-99); Potassium 3.6 mmol/L (3.5-5.1); Sodium 144 mmol/L (135-145); Total Bilirubin 0.5 mg/dl (0.2-1.3); Total Protein 4.9 g/dl (6.3-8.2); eGFR > 60.00
[2024-08-28 06:37] LABS: Glucose - Point of Care 63 mg/dl (70-99)
[2024-08-28] MEDS: ZOSYN 50 IV ×3 (06:42→18:24)
[2024-08-28] MEDS: DEXTROSE 50% SYRINGE 12.5 GRAMS IV (06:42)
--- NOTE | 2024-08-28 07:12 | W.PN.HOSP.TC ---
Addendum entered and electronically signed by Cristian Sauceda MD 08/28/24 23:14:
Attending Addendum-
I saw and evaluated the patient. I reviewed the resident�s note and agree with findings and plan as documented in the resident�s note. Sub: no N/V abd pain. still with high output from NG/j tube Full 12 point ROS reviewed and negative except as
documented Exam: Vitals reviewed in chart GEN-NAD HEENT NG tube in place draining dark back liquid heart RRR lungs clear abd distended decreased BS no rebound/guarding J tube in place draining greenish/black fluid LE no edema
# Probable Viral gastroenteritis
- s/p chemo- possible s/e
- r/o obs-CT a/p-Evaluation overall limited without intravenous contrast and with some relative paucity of oral contrast, lateral only incompletely opacified small bowel. Some large and small bowel air-fluid levels without intestinal obstruction,
nonspecific, possibly representing enteritis
- GI on board
- NPO/NPJ-tube for now
- C. Diff negative
- Norovirus negative
- DC zosyn s/p day 4 no infection/abscess appreciated
- Continue supportive care with IVFs, antiemetics, etc.
- Maintain NG to LIMS and J-tube to gravity for now. Defer to GI for further recommendations.
# CODY
-prerenal
-resolved
-Continue IV fluids
-repeat BMP in am
# Hypernatremia
-resolved
-cont IVF as NPO
-repeat BMP in am
# Non-Ischemic Myocardial Injury
- Troponin elevated at [facility]. No complaints of chest pain today, no SOB, no palps
- Normal EKG.
- Troponin Trending down
# Leukocytosis-
-resolving
-GCSF received last week
-DC Zosyn
-CT A/P- r/o abscess
-check urine and culture - NGTD
-repeat CBC in am
# DM-II
- Follow glucose and cover with SSI as needed.
- A1C at [facility] was 6.6%.
- start D5 due to hypoglycemia
# Distal Esophageal Adenocarcinoma/Dysphagia
- s/p 1st cycle of chemo.
- Continue PPI IV BID
- Oncology input appreciated
- Resume nutrition support via J-tube once GI symptoms are improved.
- GI Cx appreciated
- OP chemo
DVT Prophylaxis: SCDs
Code Status: Full
Time spent coordinating care, review of plan of care with resident, personally reviewed records in EMR, med rec, consults, notes, labs, radiology, d/w nursing � 55 mins
Original Note:
Today's Communication/Plan
-
Continue NG and CHRISTOPHER tubes to suction and monitor outputs
Continue IV fluid
I's and O's, daily weights
Continue antibiotics
Monitor and replete electrolytes
Assessment / Plan
Assessment / Plan
Assessment: 69-year-old male with PMH of esophageal cancer s/p recent chemo (FLOT) 08/14/2024 for, s/p GCFS 08/21/24, followed by Dr. Ramos who was transferred from [facility] for diarrhea and weakness. Developed black tarry diarrhea 1 day
post GCFS which continued to worsen with resultant progressive weakness and fatigue, nausea and episodes of dark-colored emesis. Was seen at [place] 2 days [employer] where he was treated for sigmoid diverticulitis, SBO identified by CT, CODY and RUL
pneumonia. Received IV cefepime, IV PPI and NG decompression.
Assessment/plan:
Acute gastroenteritis
-Suspect side effect from recent FLOT regimen (known side effect) vs viral etiology.
-NPO.
-NG tube, J-tube with continued high output, continue to monitor.
-Consider small bowel follow-through if continue to have high NG and J-tube outputs per GI.
-No evidence of obstruction or diverticulitis on recent Abd X-Ray and CT with oral and IV contrast.
-Continue PPI.
-GI appreciated.
-Defer to GI for further NG and J-tube management.
Locally advanced esophageal adenocarcinoma diagnosed 06/2024
-Ulcerated obstructive mass at GEJ s/p 1 cycle FLOT 08/14 with filgrastim 08/22
-Resume chemo upon hospital discharge per oncology.
-Plan for surgical resection resection with additional 4 courses of chemo afterwards.
-Oncology appreciated.
N/V/D
-N/V resolved on IV Zofran.
-Continue IV PPI twice daily.
Leukocytosis
-Suspect from G-CSF received last week.
-CT abdomen and pelvis negative for abscess.
-Improving on Zosyn.
-Monitor CBC, urine and culture.
-Continue antibiotics.
CODY
-CR improving currently 1.5.
-Most likely due to hypovolemia given lactic acidosis 6.5 on admission
-Continue IV fluids.
-Follow creatinine and volume status.
Nonischemic [place]
-Troponin reportedly elevated at [facility].
-Denies chest pain, shortness of breath.
-Trended troponin on admission, last 19.
-No indication to continue to trend unless symptoms.
Hyponatremia
-Resolved.
-Due to hypovolemia, NG and J tube suction.
-Change IVF to D5 1/2 NS given pt is NPO and having large gastric outputs.
-Monitor and replete free water.
-Monitor I's and O's, daily weights.
Type 2 diabetes mellitus
-Diet controlled.
-A1c at 6% 6.6%.
-Follow serum glucose and cover with SSI.
DVT Prophylaxis: SCDs
Code Status: Full code
Data:
Abd X-ray 08/28/2024:
Oral contrast is not well seen by radiograph. There may be some faint dilute contrast material in the distal colon and rectum.
No disproportionally dilated loops of small bowel or air-fluid levels. No appreciable intraperitoneal free air. Stable enteric tube and jejunostomy tube.
Anticipated Discharge: > 48 hours
Subjective/Interval History
-
Date of Service: August 28, 2024
I saw and evaluated patient. Patient was lying comfortably in bed in no acute distress. There was no acute event reported overnight and he is hemodynamically stable. He stated that he feels less bloated and is passing gas. Subjectively, patient
looks better. Overnight, he was reported to pull out 900 mL through NG tube and 450 mL through J-tube. This morning, there is minimal output from both tubes. He is able to get out of bed and walk with minimal assistance. He denies chest pain,
shortness of breath, fever, chills, abdominal pain, nausea or vomiting. He denies any bowel movement so far.
Objective Data
-
Labs:
Laboratory Results
08/28/24 08/28/24
04:46 06:09
WBC 14.2 H Cancelled
Hgb 9.3 L Cancelled
Hct 28.8 L Cancelled
Plt Count 152 Cancelled
Sodium 144 Cancelled
Potassium 3.6 Cancelled
Chloride 116 H Cancelled
Carbon Dioxide 18 L Cancelled
BUN 27 H Cancelled
Creatinine 1.1 Cancelled
Glucose 61 L Cancelled
Calcium 8.6 Cancelled
Total Bilirubin 0.5
AST 37
ALT 30
Alkaline Phosphatase 75
Vital Signs:
Vital Signs
Temp Pulse Resp BP Pulse Ox
97.8 F 80 17 112/70 100
08/27/24 23:46 08/27/24 23:46 08/27/24 23:46 08/27/24 23:46 08/27/24 23:46
I&O
08/27/24 08/28/24 08/29/24
06:59 06:59 06:59
Intake Total 620 / 620 3180 / 3180
Output Total 1250 / 1250 4300 / 4300
Balance -630 / -630 -1120 / -1120
Review of Systems
-
History Source: Patient
All other systems: Reviewed and negative
Physical Exam
-
General: No Apparent Distress and Appears Chronically Ill
HEENT: Nose Appears Normal and Ears Appear Normal
Respiratory: Clear to Auscultation
Cardiac: Regular Rhythm and S1/S2
GI: Soft, Nontender, Nondistended and Other (NG tube, G-tube in place and draining)
Musculoskeletal: No Clubbing, No Cyanosis and No Edema
Skin: Warm and Dry; Negative Rash
Neuro: Awake, Alert, Oriented and AO x 3
Psych: Calm
Data Reviewed
-
Diagnostic Radiology: Image personally visualized and interpreted, Report Reviewed by me and Discussed with Physician
CT Scan: Image personally visualized and interpreted, Report Reviewed by me and Discussed with Physician
Labs: Labs Reviewed by me and Discussed with Physician
Old Records: Reviewed
[2024-08-28 07:15] VITALS: BP 116/59
[2024-08-28 07:22] LABS: Glucose - Point of Care 130 mg/dl (70-99)
[2024-08-28 07:40] LABS: Absolute Neutrophils -Man Diff 11.3 10^3/uL (1.4-6.5); Band Neutrophils 5 % (0-3); Lymphocytes 9 % (20-51); Monocytes 5 % (2-9); Segmented Neutrophils 75 % (42-75)
[2024-08-28 07:41] LABS: Myelocytes 6 % (-); Normal RBC Morphology Yes; Platelets Checked Yes; Total Cells Counted 100
[2024-08-28] MEDS: D5W 1000 IV (07:49)
[2024-08-28 08:12] VITALS: BP 116/59
--- NOTE | 2024-08-28 08:29 | W.PN.ONC2 ---
Today's Communication / Plan
-
.
Impression
Impression
a/w SOB/ileus/diverticulitis -NGT
locally advance Esophageal adenocarcinoma diagnosed 07/03/24, ulcerated obstructive mass at GE junction, s/p C1 FLOT 08/14 with filgrastim x 6 doses, last 08/22
jejunostomy 06/2024
hypernatremia
CODY
leukocytosis secondary to GCSF +/- divertic/ileus- infectious w/u negative to date
normocytic anemia. No role for iron repletion with ferritin 400.
Plan
Plan
NGT & Jtube to gravity - management per GI
on abx
on ppi
follow up b12, folate, monitor for bleeding
chemotherapy will be resumed upon hospital discharge - optimize PT/OT/nutrition
Subjective/Objective
Subjective
no new complaints
denies n/v or ab pain. NO BM or flatulance
Vital Signs:
Vital Signs
Temp Pulse Resp BP Pulse Ox
98.0 F 76 18 116/59 99
08/28/24 07:15 08/28/24 07:15 08/28/24 07:15 08/28/24 07:15 08/28/24 07:15
Lab Results:
Laboratory Data
WBC Cancelled 08/28/24 06:09
Hgb Cancelled 08/28/24 06:09
Plt Count Cancelled 08/28/24 06:09
eGFR Cancelled 08/28/24 06:09
Physical Exam
HEENT: Moist Mucous Membranes and Other (NGT); No Jaundice
Pulmonary: Clear
GI: Soft and Other (Jtube)
Extremities: No Edema
Orders
Orders
Orders From Last 24 Hours
08/27/24 08:44
Add On- LAB Routine
08/28/24 04:46
B12 [Vitamin B12] IN AM
Folate IN AM
--- NOTE | 2024-08-28 09:55 | PTCARENOTE ---
pt went for xray this morning. post xray pt walked 2 rounds with pct, sacral foam replaced. pt reset up back to int suction for NGT.
[2024-08-28 11:05] VITALS: BP 104/64; BP 114/69; BP 118/72
[2024-08-28 12:20] LABS: Glucose - Point of Care 70 mg/dl (70-99)
[2024-08-28 12:48] VITALS: BMI 19.8
--- NOTE | 2024-08-28 13:20 | W.PN.GI.CBS2 ---
Addendum entered and electronically signed by Desiree Vides MD 08/28/24 14:37:
I saw and examined the patient.
The [employer] or PA's note was reviewed and I agree with the note.
Comment: Patient continues to have high output from the NG tube and the D-foig-eizhl 7 am today until about 11:30am ,abt 450cc of bilious material noted.
Denies any abdominal pain. No bowel movements since 08/25/24. No fevers or chills. Leukocytosis seems to be improving.
Reviewed CT scan with oral and IV contrast done 08/27/2024 with radiology-no evidence of small bowel obstruction or dilation on recent CT scan and abdominal x-ray from this morning showing some contrast in the distal colon and rectum, again ruling
out obstruction.
Patient did receive C1 FLOT regimen-potential side effect of this regimen is enteritis on reviewing data. As per patient, while he was on tube feeds, his stool was more softly formed. Reports having colonoscopy 2 years ago at [place], does not
recall having polyps.
Reviewed with the patient to limit oral intake of ice chips, part of the drainage from J-tube could be CT scan contrast. Will continue to monitor NG and J-tube Output.
Monitor electrolytes and replete as needed.
Continue PPI twice daily with h/o esophageal ca.
If patient continues to have high output, agree with possible small bowel follow-through.
Patient currently on Zosyn for prior CT scan at [facility] showing possible diverticulitis, clinically patient not have any abdominal pain to suggest acute diverticulitis. Most recent CT scan with oral and IV contrast again without any
evidence of diverticulitis. Could discontinue antibiotics.
Will follow
Original Note:
Today's Communication / Plan
-
Etiology of continued high output related to enteritis- infectious/chemo related vs other, SBO vs other
norovirus neg, c-diff and stool studies neg
Pt with persistent elevated NGT drainage 1850 for 24 hours and 450ml from J tube. Some output may have been oral contrast from CT but still with 300 + this am over 4 hours
cont NGT decompression and monitor output volumes-- output still too high to attempt clamping trial
Repeat CT with oral contrast 08/27 as noted without obstruction, enteritis-- follow up X ray today with faint contrast distal colon and rectum no dilated SB loops
reviewed imaging with Dr. Berg today- imaging with bowel less distention then 08/27, there was small volume oral contrast from CT yesterday in normal caliber distal SB with less likely obstructive process
will reach out to see oncology input if chemo related
if not improving may need surgical opinion to rule out obstructive issues and consider SBFT though CT appear to have some contrast pasted to distal SB and colon
cont NPO
cont close monitoring of outputs
cont PPI
eventual restart of tube feeds via J tube
remains on Zosyn with recent diverticulitis
Assessment / Plan
-
69-year-old male with past medical history of recently diagnosed esophageal cancer ([facility]), after presenting for food impaction on 07/03/2024 with ulcerated obstructive mass that is high-grade adenocarcinoma at the GE junction.
Staging as an outpatient PET CT scan on 07/20/2024 revealed evidence of GE junction lesion measuring 4.5 x 2.7 cm with regional babak involvement. Patient had port placed J tube placed for nutritional support. Started chemotherapy 08/14/2024 with
FLOT chemo with CSF. Who presented to [facility] on after having acute onset of nausea, vomiting and diarrhea that started on Tuesday. The patient states he had upwards of 35 episodes of such. He states it was black in color
from both ends. Per admission records the patient was treated for diverticulitis, small bowel obstruction, CODY and right upper lobe pneumonia. NG tube was placed and patient was given IV fluids and antibiotics. He was started on IV cefepime, IV
PPI and NG tube decompression. At [facility] he had a lactate of 6.5. On presentation here was 2.0. The patient was transferred here for continuity of care given his oncologist is at [facility].
08/23/24 CT chest/abd/pelvis without contrast-([facility]) dilated esophagus, stomach and proximal small bowel with decompression distal/ileal small bowel loops, pattern favors SBO with differential including severe ileus, acute diverticulitis of
proximal sigmoid colon with segmental colonic wall thickening, diffusely fluid filled colon, no pneumoperitoneum, J tube in satisfactory position, subtle patchy ground glass opacity right upper lobe, likely infectious/inflammatory
08/27/24 CT Abd/pel (oral only)-[facility] Only
Evaluation overall limited without intravenous contrast and with some relative paucity of oral contrast, lateral only incompletely opacified small bowel. Some large and small bowel air-fluid levels without intestinal obstruction, nonspecific,
possibly representing enteritis.
No abnormal focal fluid collection to suggest an abscess although somewhat limited without intravenous contrast paucity of contrast.
08/28/24 Abd X ray
Oral contrast is not well seen by radiograph. There may be some faint dilute contrast material in the distal colon and rectum.
No disproportionally dilated loops of small bowel or air-fluid levels. No appreciable intraperitoneal free air. Stable enteric tube and jejunostomy tube
Impression:
Nausea, vomiting, diarrhea
Esophageal cancer (adenocarcinoma recently diagnosed 07/03/24) ulcerated obstructive mass at GE junction s/p first chemo 08/14
Small bowel obstruction/ileus but noted with several stools on admission less likely SBO
Leukocytosis improving slowly-- recent CSF given
diverticulitis noted on CT at [place]
Plan
Etiology of continued high output related to enteritis- infectious/chemo related vs other, SBO vs other
norovirus neg, c-diff and stool studies neg
Pt with persistent elevated NGT drainage 1850 for 24 hours and 450ml from J tube. Some output may have been oral contrast from CT but still with 300 + this am over 4 hours
cont NGT decompression and monitor output volumes-- output still too high to attempt clamping trial
Repeat CT with oral contrast 08/27 as noted without obstruction, enteritis-- follow up X ray today with faint contrast distal colon and rectum no dilated SB loops
reviewed imaging with Dr. Berg today- imaging with bowel less distention then 08/27, there was small volume oral contrast from CT yesterday in normal caliber distal SB with less likely obstructive process
will reach out to see oncology input if chemo related
if not improving may need surgical opinion to rule out obstructive issues and consider SBFT though CT appear to have some contrast pasted to distal SB and colon
cont NPO
cont close monitoring of outputs
cont PPI
eventual restart of tube feeds via J tube
remains on Zosyn with recent diverticulitis
Subjective
Subjective
Date of Service: August 28, 2024
2/ brown stool still with drainage from NGT and J tube
output
NGT with 1850 over 24 hours and at least 300+ since 5:30 this am
J tube with 450ml over 24 hours
Objective
Data Reviewed
Laboratory Data:
Laboratory Results
08/28/24 06:09
08/28/24 06:09
Laboratory Results
Magnesium 2.7 mg/dl (1.6-2.3) H 08/25/24 05:58
Total Bilirubin 0.5 mg/dl (0.2-1.3) 08/28/24 04:46
AST 37 U/L (17-59) 08/28/24 04:46
ALT 30 U/L (0-50) 08/28/24 04:46
Alkaline Phosphatase 75 U/L (38-126) 08/28/24 04:46
Vital Signs and I&O:
Vital Signs
Temp Pulse Resp BP Pulse Ox
98.2 F 78 18 104/64 95
08/28/24 11:05 08/28/24 11:05 08/28/24 11:05 08/28/24 11:05 08/28/24 11:05
I&O
08/27/24 08/28/24 08/29/24
06:59 06:59 06:59
Intake Total 620 / 620 3180 / 3180
Output Total 1250 / 1250 4300 / 4300
Balance -630 / -630 -1120 / -1120
Physical Exam
Physical Exam
HEENT: Anicteric and Moist mucous membranes
Cardiology: Normal Sinus Rhythm
Pulmonary: Clear
GI: Soft, Distended (mild ), Non Tender and Other (Jtube 14 croatian intact with bumper sutured in place )
Extremities: No Edema
Neuro: Non Focal
--- NOTE | 2024-08-28 14:30 | CM ---
Patient seen at bedside.
Pharmacy: [facility] , [place]-updated in [facility]
PCP: Dr. Addis Pleitez, [address] [place] [address]
Patient continues with NGT
[facility] home health
PLAN: [facility] home health when stable
FAX: [phone]
[2024-08-28 15:10] VITALS: BP 102/66
[2024-08-28 17:41] LABS: Folate > 20.0 ng/ml (2.76-20); Vitamin B12 > 1000 pg/ml (239-931)
[2024-08-28 18:40] LABS: Glucose - Point of Care 88 mg/dl (70-99)
[2024-08-28] MEDS: D5/0.45%NSS with KCL 10 MEQ 1000 IV (21:05)
[2024-08-28 23:00] VITALS: BP 120/69
[2024-08-29 00:17] LABS: Glucose - Point of Care 133 mg/dl (70-99)
[2024-08-29] MEDS: NOVOLOG FLEXPEN-LOW RESISTANCE SC ×3 (00:30→18:28)
[2024-08-29] MEDS: PROTONIX IV 40 MG IV ×2 (03:05→13:32)
[2024-08-29] MEDS: NSS (PRESERVATIVE FREE) IV (03:16)
[2024-08-29] MEDS: D5/0.45%NSS with KCL 10 MEQ 1000 IV ×2 (05:52→13:31)
[2024-08-29 06:00] VITALS: BMI 19.6
[2024-08-29 06:03] LABS: Hematocrit 26.2 % (39.0-52.0); Hemoglobin 8.9 g/dL (13.0-18.0); Mean Corpuscular Hgb 31.6 pg (27.0-31.0); Mean Corpuscular Volume 92.9 fL (80.0-94.0); Mean Platelet Volume 10.2 fL (7.4-10.4); Platelet Count 154 10^3/uL (130-400); Red Blood Cell Count 2.82 10^6/uL (4.70-6.10); Red Cell Dist. Width 13.8 % (11.5-14.5); White Blood Cell Count 9.7 10^3/uL (4.8-10.8)
[2024-08-29 06:06] LABS: Glucose - Point of Care 155 mg/dl (70-99)
[2024-08-29 06:18] LABS: ALT (SGPT) 36 U/L (0-50); AST (SGOT) 43 U/L (17-59); Albumin 2.5 g/dl (3.5-5.0); Alkaline Phosphatase 64 U/L (38-126); Blood Urea Nitrogen 26 mg/dl (9-20); Calcium 8.3 mg/dl (8.4-10.2); Carbon Dioxide 24 mmol/L (22-30); Chloride 110 mmol/L (98-107); Estimated Creatinine Clearance 54 ml/min; Glucose 147 mg/dl (70-99); Potassium 3.4 mmol/L (3.5-5.1); Sodium 139 mmol/L (135-145); Total Bilirubin 0.4 mg/dl (0.2-1.3); Total Protein 4.7 g/dl (6.3-8.2); eGFR > 60.00
--- NOTE | 2024-08-29 07:08 | W.PN.HOSP.TC ---
Addendum entered and electronically signed by Cristian Sauceda MD 08/29/24 21:25:
Attending Addendum-
I saw and evaluated the patient. I reviewed the resident�s note and agree with findings and plan as documented in the resident�s note. Sub: no N/V abd pain. continues to have high output from NG, denies flatus or BM, Full 12 point ROS reviewed and
negative except as documented Exam: Vitals reviewed in chart GEN-NAD HEENT NG tube in place draining dark back liquid heart RRR lungs clear abd mildly distended decreased BS no rebound/guarding J tube in place draining greenish/black fluid LE no
edema
# Probable Viral gastroenteritis
- s/p chemo- possible s/e
- CT a/p-Evaluation overall limited without intravenous contrast and with some relative paucity of oral contrast, lateral only incompletely opacified small bowel. Some large and small bowel air-fluid levels without intestinal obstruction,
nonspecific, possibly representing enteritis
- GI on board
- NG clamp trial, will keep in for now - 08/29
- start J tube feeds if pass trial
- C. Diff negative
- Norovirus negative
- DC'd zosyn s/p day 4 no infection/abscess appreciated
- Continue supportive care with IVFs, antiemetics, etc.
# CODY
-prerenal
-resolved
-Continue IV fluids
-repeat BMP in am
# Hypernatremia
-resolved
-cont IVF as NPO
-repeat BMP in am
# Non-Ischemic Myocardial Injury
- Troponin elevated at [facility]. No complaints of chest pain today, no SOB, no palps
- Normal EKG.
- Troponin Trending down
# Leukocytosis-
-resolved
-GCSF received last week
-DC Zosyn
-CT A/P- no abscess
-check urine and culture - NGTD
-repeat CBC in am
# DM-II
- Follow glucose and cover with SSI as needed.
- A1C at [facility] was 6.6%.
- cont D5 due to hypoglycemia
- restart J tube feeds
# Distal Esophageal Adenocarcinoma/Dysphagia
- s/p 1st cycle of chemo.
- Continue PPI IV BID
- Oncology input appreciated
- Resume nutrition support via J-tube
- GI input appreciated
- OP chemo
# Moderate PCM
- nutritional support
- start j tube feedings
DVT Prophylaxis: SCDs
Code Status: Full
Time spent coordinating care, review of plan of care with resident, personally reviewed records in EMR, med rec, consults, notes, labs, radiology, d/w GI and nursing � 52 mins
Original Note:
Today's Communication/Plan
-
Attempt clamp trial today
Continue IV fluids
Monitor outputs
Stop Zosyn
Monitor and replete electrolytes
Assessment / Plan
Assessment / Plan
Assessment: 69-year-old male with PMH of esophageal cancer s/p recent chemo (FLOT) 08/14/2024 for, s/p GCFS 08/21/24, followed by Dr. Ramos who was transferred from [facility] for diarrhea and weakness. Developed black tarry diarrhea 1 day
post GCFS which continued to worsen with resultant progressive weakness and fatigue, nausea and episodes of dark-colored emesis. Was seen at [place] 2 days [facility] where he was treated for sigmoid diverticulitis, SBO identified by CT, CODY and RUL
pneumonia. Received IV cefepime, IV PPI and NG decompression.
Assessment/plan:
Acute gastroenteritis
-From recent FLOT regimen (known side effect) vs viral etiology.
-NPO.
-NG tube 4 hours clamp trial today by GI.
-Consider restarting tube feeds.
-Consider small bowel follow-through if he fails the above.
-Continue PPI.
-GI on board and appreciated.
Locally advanced esophageal adenocarcinoma diagnosed 06/2024
-Ulcerated obstructive mass at GEJ s/p 1 cycle FLOT 08/14 with filgrastim 08/22
-Resume chemo upon hospital discharge per oncology.
-Plan for surgical resection resection with additional 4 courses of chemo afterwards.
-Oncology appreciated.
Severe protein caloric malnutrition
-Moderate orbital fat loss and mild muscle wasting at b/l calves.
-Most likely due to poor oral intake given esophageal adenocarcinoma vs inadequate tube feeds.
-Resume tube feeds when cleared by GI.
-Continue to monitor closely.
N/V/D
-N/V resolved on IV Zofran.
-Continue IV PPI twice daily.
Leukocytosis-from G-CSF therapy
-Resolved.
-Zosyn discontinued after 4 days with no infection or abscess on recent CT.
CODY
-Creatinine back to baseline 1.1.
-Continue IV fluids.
-Follow creatinine and volume status.
Nonischemic FL
-Troponin reportedly elevated at [facility].
-Denies chest pain, shortness of breath.
-Trended troponin on admission, last 19.
-No indication to continue to trend unless symptoms.
Hypernatremia
-Resolved.
-Due to hypovolemia, NG and J tube suction.
-IV fluid, NSS.
-Monitor and replete free water.
-Monitor I's and O's, daily weights.
Hypokalemia.
-From GI losses.
-Replete and monitor electrolytes.
Type 2 diabetes mellitus
-Diet controlled.
-Follow serum glucose and cover with SSI.
DVT Prophylaxis: SCDs
Code Status: Full code
Data:
Abd X-ray 08/28/2024:
Oral contrast is not well seen by radiograph. There may be some faint dilute contrast material in the distal colon and rectum.
No disproportionally dilated loops of small bowel or air-fluid levels. No appreciable intraperitoneal free air. Stable enteric tube and jejunostomy tube.
Anticipated Discharge: > 48 hours
Subjective/Interval History
-
Date of Service: August 29, 2024
I have seen and examined the patient. Lying comfortably in bed in no acute cardiopulmonary distress. Reports that he is feeling better. Denies chest pain, abdominal pain, fever, chills, nausea or vomiting. Subjectively looks comfortable.
Overnight, reported 100 mL output from J-tube at 700 mL output from NG tube, no stools.
Objective Data
-
Labs:
Laboratory Results
08/29/24
05:57
WBC 9.7
Hgb 8.9 L
Hct 26.2 L
Plt Count 154
Sodium 139
Potassium 3.4 L
Chloride 110 H
Carbon Dioxide 24
BUN 26 H
Creatinine 1.1
Glucose 147 H
Calcium 8.3 L
Total Bilirubin 0.4
AST 43
ALT 36
Alkaline Phosphatase 64
Vital Signs:
Vital Signs
Temp Pulse Resp BP Pulse Ox
98 F 77 18 120/69 99
08/28/24 23:00 08/28/24 23:00 08/28/24 23:00 08/28/24 23:00 08/28/24 23:00
I&O
08/28/24 08/29/24 08/30/24
06:59 06:59 06:59
Intake Total 3180 / 3180 2880 / 2880
Output Total 4300 / 4300 2475 / 2475
Balance -1120 / -1120 405 / 405
Review of Systems
-
History Source: Patient
All other systems: Reviewed and negative
Physical Exam
-
General: No Apparent Distress and Appears Chronically Ill
HEENT: Nose Appears Normal and Ears Appear Normal
Respiratory: Clear to Auscultation
Cardiac: Regular Rhythm and S1/S2
GI: Soft, Nontender, Nondistended and Other (NG tube with minimal drainage, G-tube in place and draining)
Musculoskeletal: No Clubbing, No Cyanosis and No Edema
Skin: Warm and Dry; Negative Rash
Neuro: Awake, Alert, Oriented and AO x 3
Psych: Calm
Data Reviewed
-
Diagnostic Radiology: Image personally visualized and interpreted, Report Reviewed by me and Discussed with Physician
CT Scan: Image personally visualized and interpreted, Report Reviewed by me and Discussed with Physician
Labs: Labs Reviewed by me and Discussed with Physician
Old Records: Reviewed
[2024-08-29] MEDS: NOVOLOG FLEXPEN-LOW RESISTANCE 1 UNITS SC (07:40)
[2024-08-29 08:00] VITALS: BP 110/56
--- NOTE | 2024-08-29 09:24 | PN.CDI ---
CDI
- -
CDI:
Physician Documentation Request
Admit Date: 08/24/24 23:23
Dear Doctor Everette,
Patient admitted for gastroenteritis
08/28 Para Machine Operator Assessment: 'As per ASPEN/AND pt meets criteria for moderate protein calorie malnutrition in the context of chronic illness with NFPE findings of moderate orbital fat loss and mild muscle wasting at the calves.'
Based on the above information and your assessment, which of the following most accurately represents the patient's nutritional status?
Moderate protein calorie malnutrition
Other
[place] Criteria ([facility] Hospitalist 2017)
2 or more criteria must be present for either
non severe or severe malnutrition
Note that the criteria differs related to the
presence of an acute or chronic illness
Acute Illness Chronic Illness
Energy Intake Non Severe: <75% for >7 days Non Severe: <75% for >1 month
Severe: <50% for >5 days Severe: <75% for >1 month
Weight Loss Non Severe: 1-2% over 1 week Non Severe: 5% over 1 month
5% over 1 month 7.5% over 3 months
7.5% over 3 months 10% over 6 months
1 year N/A 20% over 1 year
Severe: >2% over 1 week Severe: >5% over 1 month
>5% over 1 month >7.5% over 3 months
>7.5% over 3 months >10% over 6 months
1 year N/A >20% over 1 year
Body Fat Non Severe: Mild Decrease Non Severe: Mild Loss
Severe: Moderate Decrease Severe: Severe Loss
Muscle Mass Non Severe: Mild Decrease Non Severe: Mild Loss
Severe: Moderate Decrease Severe: Severe Loss
Fluid Accumulation Non Severe: Mild Accumulation Non Severe: Mild Accumulation
Severe: Moderate to severe Severe: Moderate to severe
accumulation accumulation
Reduced Financial Operations Clerk Strength Non Severe: N/A Non Severe: N/A
Severe: Measurably reduced Severe: Measurably reduced
Additional criteria that can be used to Determine if Mild or Moderate Malnutrition ([employer] Manual 2018)
Mild Moderate Severe
Albumin gm/dl <3.0 gm/dl <2.5 gm/dl <2.0 gm/dl
Pre Albumin mg/dl <15 gm/dl <10 mg/dl <5.0 mg/dl
BMI <18.5 <17 <16
Use of terms such as suspected, likely, concern for, or probable (associated with a specific diagnosis that is being evaluated, monitored, or treated as if it exists) are acceptable and can be coded in the inpatient setting, when documented at the
time of discharge.
Thank you,
Sherie Portillo RN, BSN
CDI Specialist
Available via [place] text
Please use your independent medical judgment in providing your response.
--- NOTE | 2024-08-29 09:40 | W.PN.GI.CBS2 ---
Addendum entered and electronically signed by Desiree Vides MD 08/29/24 12:38:
I saw and examined the patient.
The TANKROOM TENDER or PA's note was reviewed and I agree with the note.
Comment: Patient continues to have high-volume output but improved compared to 08/28.
Reviewing imaging studies, no evidence of obstructive symptoms.
Okay to clamp NG tube for 4 hours and if no significant residuals, could try starting tube feeds at a very low rate and can advance as tolerated.
Would not remove NG tube yet even if tube feeds are started until the output is significantly lower.
If there is continued increased output from NG tube, agree with small bowel follow-through and surgical evaluation.
Monitor electrolytes and replete.
Will follow
Original Note:
Today's Communication / Plan
-
Etiology of continued high output related to enteritis- chemo related vs infectious but neg studies vs SBO vs other
norovirus neg, c-diff and stool studies neg
serial imaging as above
Pt with persistent elevated NGT drainage 08/28 1850 for 24 hours and 450ml from J tube, 08/29 1450 NGT and 400ml J tube. No stools
slightly less in canister this am
reviewed with hospitalist and oncology will attempt NGT 4 hour clamp trial
if fails will get surgical eval and consider SBFT
reviewed imaging with Dr. Berg 08/28 - imaging with bowel less distention then 08/27, there was small volume oral contrast from CT yesterday in normal caliber distal SB with less likely obstructive process
cont close monitoring of outputs -- pt admits to minimal ice chips overnight
cont PPI
eventual restart of tube feeds via J tube
Zosyn now stopped with recent diverticulitis
Assessment / Plan
-
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
Staging as an outpatient PET CT scan on 07/20/2024 revealed evidence of GE junction lesion measuring 4.5 x 2.7 cm with regional babak involvement. Patient had port placed J tube placed for nutritional support and noted hx chronic diarrhea that
improved with tube feed regiment. Started chemotherapy 08/14/2024 with FLOT chemo with CSF. Who presented to [facility] on after having acute onset of nausea, vomiting and diarrhea that started on Tuesday. The patient states he
had upwards of 35 episodes of such. He states it was black in color from both ends but admits to pepto use. Per admission records the patient was treated for diverticulitis, small bowel obstruction, CODY and right upper lobe pneumonia. NG tube was
placed and patient was given IV fluids and antibiotics. He was started on IV cefepime, IV PPI and NG tube decompression. At [facility] he had a lactate of 6.5. On presentation here was 2.0. The patient was transferred here for continuity
of care given his oncologist is at [facility]. He has been noted with persistent elevated NGT output since admission.
08/23/24 CT chest/abd/pelvis without contrast-(chesaning) dilated esophagus, stomach and proximal small bowel with decompression distal/ileal small bowel loops, pattern favors SBO with differential including severe ileus, acute diverticulitis of
proximal sigmoid colon with segmental colonic wall thickening, diffusely fluid filled colon, no pneumoperitoneum, J tube in satisfactory position, subtle patchy ground glass opacity right upper lobe, likely infectious/inflammatory
08/27/24 CT Abd/pel (oral only)-[facility] Only
Evaluation overall limited without intravenous contrast and with some relative paucity of oral contrast, lateral only incompletely opacified small bowel. Some large and small bowel air-fluid levels without intestinal obstruction, nonspecific,
possibly representing enteritis.
No abnormal focal fluid collection to suggest an abscess although somewhat limited without intravenous contrast paucity of contrast.
08/28/24 Abd X ray
Oral contrast is not well seen by radiograph. There may be some faint dilute contrast material in the distal colon and rectum.
No disproportionally dilated loops of small bowel or air-fluid levels. No appreciable intraperitoneal free air. Stable enteric tube and jejunostomy tube
Impression:
Nausea, vomiting, diarrhea
Esophageal cancer (adenocarcinoma recently diagnosed 07/03/24) ulcerated obstructive mass at GE junction s/p first chemo 08/14
Small bowel obstruction/enteritis/ileus with high NGT outputs
Leukocytosis improving slowly-- recent CSF given
diverticulitis noted on CT at [place]
Plan
Etiology of continued high output related to enteritis- chemo related vs infectious but neg studies vs SBO vs other
norovirus neg, c-diff and stool studies neg
serial imaging as above
Pt with persistent elevated NGT drainage 08/28 1850 for 24 hours and 450ml from J tube, 08/29 1450 NGT and 400ml J tube. No stools
slightly less in canister this am
reviewed with hospitalist and oncology will attempt NGT 4 hour clamp trial
if fails will get surgical eval and consider SBFT
reviewed imaging with Dr. Berg 08/28 - imaging with bowel less distention then 08/27, there was small volume oral contrast from CT yesterday in normal caliber distal SB with less likely obstructive process
cont close monitoring of outputs -- pt admits to minimal ice chips overnight
cont PPI
eventual restart of tube feeds via J tube
Zosyn now stopped with recent diverticulitis
Subjective
Subjective
Date of Service: August 29, 2024
08/25 brown loose stool, NPO
Objective
Data Reviewed
Laboratory Data:
Laboratory Results
08/29/24 05:57
08/29/24 05:57
Laboratory Results
Magnesium 2.7 mg/dl (1.6-2.3) H 08/25/24 05:58
Total Bilirubin 0.4 mg/dl (0.2-1.3) 08/29/24 05:57
AST 43 U/L (17-59) 08/29/24 05:57
ALT 36 U/L (0-50) 08/29/24 05:57
Alkaline Phosphatase 64 U/L (38-126) 08/29/24 05:57
Vital Signs and I&O:
Vital Signs
Temp Pulse Resp BP Pulse Ox
98.0 F 64 18 110/56 99
08/29/24 08:00 08/29/24 08:00 08/29/24 08:00 08/29/24 08:00 08/29/24 08:00
I&O
08/28/24 08/29/24 08/30/24
06:59 06:59 06:59
Intake Total 3180 / 3180 2880 / 2880
Output Total 4300 / 4300 2475 / 2475
Balance -1120 / -1120 405 / 405
Physical Exam
Physical Exam
HEENT: Anicteric and Moist mucous membranes
Cardiology: Normal Sinus Rhythm
Pulmonary: Clear
GI: Soft, Distended (mild), Non Tender and Other (J tube with minimal greenish drainage, NGT with bilious drainage)
Extremities: No Edema
Neuro: Non Focal
[2024-08-29 10:27] VITALS: BP 105/63; PULSE 86; O2SAT 99
[2024-08-29 11:33] VITALS: BP 103/60; BP 89/58; BP 96/60
[2024-08-29 12:03] LABS: Glucose - Point of Care 123 mg/dl (70-99)
[2024-08-29] MEDS: NSS (PRESERVATIVE FREE) 10 ML IV (13:31)
[2024-08-29 14:48] VITALS: BP 97/63
[2024-08-29] MEDS: NSS 1000 IV (16:16)
--- NOTE | 2024-08-29 16:42 | CM ---
Met with patient
Referral in place for [facility]
states NGT clamped now
PLAN: [facility] health when stable
FAX: [phone]
[2024-08-29 18:10] LABS: Glucose - Point of Care 78 mg/dl (70-99)
[2024-08-29 22:13] VITALS: BP 117/57; BP 130/64; BP 93/67; PULSE 78; PULSE 84; PULSE 94
[2024-08-29] MEDS: D5/0.45%NSS with KCL 10 MEQ IV (22:42)
[2024-08-29 23:20] VITALS: BP 108/59
[2024-08-30 00:11] LABS: Glucose - Point of Care 99 mg/dl (70-99)
[2024-08-30] MEDS: NOVOLOG FLEXPEN-LOW RESISTANCE SC ×4 (00:13→18:46)
[2024-08-30] MEDS: NSS 1000 IV ×3 (01:11→19:42)
[2024-08-30] MEDS: PROTONIX IV 40 MG IV ×2 (01:58→15:00)
[2024-08-30] MEDS: NSS (PRESERVATIVE FREE) 10 ML IV ×2 (01:59→15:00)
[2024-08-30 03:03] VITALS: BP 110/62
[2024-08-30 04:12] LABS: Hemoglobin 8.8 g/dL (13.0-18.0); Mean Corp Hgb Conc. 33.8 g/dL (33.0-37.0); Mean Corpuscular Hgb 31.3 pg (27.0-31.0); Mean Corpuscular Volume 92.5 fL (80.0-94.0); Mean Platelet Volume 10.3 fL (7.4-10.4); Platelet Count 143 10^3/uL (130-400); Red Blood Cell Count 2.81 10^6/uL (4.70-6.10); Red Cell Dist. Width 13.9 % (11.5-14.5); White Blood Cell Count 8.6 10^3/uL (4.8-10.8)
[2024-08-30 04:21] LABS: ALT (SGPT) 40 U/L (0-50); AST (SGOT) 40 U/L (17-59); Albumin 2.4 g/dl (3.5-5.0); Alkaline Phosphatase 69 U/L (38-126); Blood Urea Nitrogen 20 mg/dl (9-20); Calcium 8.1 mg/dl (8.4-10.2); Carbon Dioxide 22 mmol/L (22-30); Chloride 112 mmol/L (98-107); Estimated Creatinine Clearance 65 ml/min; Glucose 107 mg/dl (70-99); Potassium 3.4 mmol/L (3.5-5.1); Sodium 140 mmol/L (135-145); Total Bilirubin 0.3 mg/dl (0.2-1.3); Total Protein 4.5 g/dl (6.3-8.2); eGFR > 60.00
[2024-08-30] MEDS: KCL 270 MEQ IV (04:45)
[2024-08-30 05:02] LABS: % Basophils 0.3 % (0-2); % Immature Granulocytes 7.2 % (0-0.5); % Lymphocytes 17.4 % (20.5-51.1); % Monocytes 7.1 % (1.7-9.3); Absolute Eosinophils 0.1 10^3/uL (0-0.7); Absolute Immature Granulocytes 0.6 10^3/uL (0-0.05); Absolute Lymphocytes 1.5 10^3/uL (1.2-3.4); Absolute Monocytes 0.6 10^3/uL (0.1-0.6); Absolute Neutrophils 5.8 10^3/uL (1.4-6.5); Nucleated Red Blood Cells % 0 % (-)
[2024-08-30 05:58] LABS: Glucose - Point of Care 91 mg/dl (70-99)
--- NOTE | 2024-08-30 07:23 | W.PN.GI.CBS2 ---
Addendum entered and electronically signed by Desiree Vides MD 08/30/24 13:37:
Continue PPI IV twice daily.
Addendum entered and electronically signed by Desiree Vides MD 08/30/24 13:36:
I saw and examined the patient.
The CASINO FLOOR RUNNER or PA's note was reviewed and I agree with the note.
Comment: Patient without any complaints at this time. J Tube feeds resumed 08/29/2024 and NG tube was clamped. Minimal residual from NG, removed NGT this morning . No bowel movement since 08/25/2024.
Likely resolving SBO like symptoms from chemo induced enteritis.
Okay for ice chips and sips of clears as tolerated.
Agree with MiraLAX through the J-tube today.
Continue to monitor H&H, electrolytes and replete as needed.
Further chemo per oncology and he should follow-up with his outpatient spectrographer at [place].
Original Note:
Today's Communication / Plan
-
Etiology of high output related to enteritis- chemo related vs infectious but neg studies vs SBO vs other
norovirus neg, c-diff and stool studies neg
serial imaging as above
pt has now tolerated 22 hours of clamping with minimal residual --- NGT now d/c
cont to advance feeds
ok for sips liquid and ice chips
when pt tolerating tube feeds at goal can resume small amount of pleasure foods as tolerated
will give dose miralax this am last stool 08/25
trend hbg some slow drop during admission possible recent chemo related
replete K per medical team
resume chemo schedule per oncology
Assessment / Plan
-
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
Staging as an outpatient PET CT scan on 07/20/2024 revealed evidence of GE junction lesion measuring 4.5 x 2.7 cm with regional babak involvement. Patient had port placed J tube placed for nutritional support and noted hx chronic diarrhea that
improved with tube feed regiment. Started chemotherapy 08/14/2024 with FLOT chemo with CSF. Who presented to [facility] on after having acute onset of nausea, vomiting and diarrhea that started on Tuesday. The patient states he
had upwards of 35 episodes of such. He states it was black in color from both ends but admits to pepto use. Per admission records the patient was treated for diverticulitis, small bowel obstruction, CODY and right upper lobe pneumonia. NG tube was
placed and patient was given IV fluids and antibiotics. He was started on IV cefepime, IV PPI and NG tube decompression. At [facility] he had a lactate of 6.5. On presentation here was 2.0. The patient was transferred here for continuity
of care given his oncologist is at [facility]. He has been noted with persistent elevated NGT output since admission.
08/23/24 CT chest/abd/pelvis without contrast-([place]) dilated esophagus, stomach and proximal small bowel with decompression distal/ileal small bowel loops, pattern favors SBO with differential including severe ileus, acute diverticulitis of
proximal sigmoid colon with segmental colonic wall thickening, diffusely fluid filled colon, no pneumoperitoneum, J tube in satisfactory position, subtle patchy ground glass opacity right upper lobe, likely infectious/inflammatory
08/27/24 CT Abd/pel (oral only)-[facility] Only
Evaluation overall limited without intravenous contrast and with some relative paucity of oral contrast, lateral only incompletely opacified small bowel. Some large and small bowel air-fluid levels without intestinal obstruction, nonspecific,
possibly representing enteritis.
No abnormal focal fluid collection to suggest an abscess although somewhat limited without intravenous contrast paucity of contrast.
08/28/24 Abd X ray
Oral contrast is not well seen by radiograph. There may be some faint dilute contrast material in the distal colon and rectum.
No disproportionally dilated loops of small bowel or air-fluid levels. No appreciable intraperitoneal free air. Stable enteric tube and jejunostomy tube
Impression:
Nausea, vomiting, diarrhea
Esophageal cancer (adenocarcinoma recently diagnosed 07/03/24) ulcerated obstructive mass at GE junction s/p first chemo 08/14
Small bowel obstruction/enteritis/ileus with high NGT outputs
Leukocytosis improving slowly-- recent CSF given
diverticulitis noted on CT at [place]
-hypokalemia
Plan
Etiology of high output related to enteritis- chemo related vs infectious but neg studies vs SBO vs other
norovirus neg, c-diff and stool studies neg
serial imaging as above
pt has now tolerated 22 hours of clamping with minimal residual --- NGT now d/c
cont to advance feeds
ok for sips liquid and ice chips
when pt tolerating tube feeds at goal can resume small amount of pleasure foods as tolerated
will give dose miralax this am last stool 08/25
trend hbg some slow drop during admission possible recent chemo related
replete K per medical team
resume chemo schedule per oncology
Subjective
Subjective
Date of Service: August 30, 2024
last stool 08/25 but has been NPO for several day and resumed tube feed 08/29 with slow advancement .Tolerating tube clamping since 10am 08/29 with only 20ml residual yesterday and 20ml this am
Objective
Data Reviewed
Laboratory Data:
Laboratory Results
08/30/24 03:38
08/30/24 03:38
Laboratory Results
Magnesium 2.7 mg/dl (1.6-2.3) H 08/25/24 05:58
Total Bilirubin 0.3 mg/dl (0.2-1.3) 08/30/24 03:38
AST 40 U/L (17-59) 08/30/24 03:38
ALT 40 U/L (0-50) 08/30/24 03:38
Alkaline Phosphatase 69 U/L (38-126) 08/30/24 03:38
Vital Signs and I&O:
Vital Signs
Temp Pulse Resp BP Pulse Ox
98.4 F 69 20 110/62 97
08/30/24 03:03 08/30/24 03:03 08/30/24 03:03 08/30/24 03:03 08/30/24 03:03
I&O
08/29/24 08/30/24 08/31/24
06:59 06:59 06:59
Intake Total 2880 / 2880 1500 / 1500
Output Total 2475 / 2475 450 / 450
Balance 405 / 405 1050 / 1050
Physical Exam
Physical Exam
HEENT: Anicteric, Moist mucous membranes and Other (some nasal soreness with NGT )
Cardiology: Normal Sinus Rhythm
Pulmonary: Clear
GI: Soft, Distended (minimal ), Non Tender and Other (J tube intact )
Extremities: No Edema
Neuro: Non Focal
[2024-08-30 08:29] VITALS: BP 109/58
[2024-08-30 12:49] LABS: Glucose - Point of Care 100 mg/dl (70-99)
--- NOTE | 2024-08-30 13:12 | W.PN.HOSP.TC ---
Addendum entered and electronically signed by Cristian Sauceda MD 08/30/24 23:06:
Attending Addendum-
I saw and evaluated the patient. I reviewed the resident�s note and agree with findings and plan as documented in the resident�s note. Sub: no N/V abd pain. 'i farted and had diarrhea doc!' Feels weak and wants to go home. Full 12 point ROS
reviewed and negative except as documented Exam: Vitals reviewed in chart GEN-NAD HEENT NG tube clamped heart RRR lungs clear abd mildly distended decreased BS no rebound/guarding J tube in place LE no edema
# Probable Viral gastroenteritis
- s/p chemo- possible s/e
- CT A/P-Some large and small bowel air-fluid levels without intestinal obstruction, nonspecific, possibly representing enteritis
- GI on board
- NG clamp trial passed- remove NG today
- J tube feeds restarted advance to goal slowly
- Continue supportive care with IVFs, antiemetics, etc.
# CODY
-prerenal
-resolved
-Continue IV fluids
-repeat BMP in am
# Hypernatremia
-resolved
-cont IVF as NPO
-repeat BMP in am
# Hypokalemia
- replete
- repeat in am
# Non-Ischemic Myocardial Injury
- Normal EKG.
- Troponin peaked
# Leukocytosis-
-resolved
-GCSF received last week
-CT A/P- no abscess
-urine and blood cx - NGTD
-repeat CBC in am
# DM-II
- Follow glucose and cover with SSI as needed.
- A1C 6.6%.
- advance J tube feeds to goal
# Distal Esophageal Adenocarcinoma/Dysphagia
- s/p 1st cycle of chemo.
- Continue PPI IV BID
- Oncology input appreciated
- Resume nutrition support via J-tube
- GI input appreciated
- OP chemo
# Moderate PCM
- nutritional support
- cont j tube feedings
DVT Prophylaxis: SCDs
Code Status: Full
Dispo dc to home with home health when TF at goal
Time spent coordinating care, review of plan of care with resident, personally reviewed records in EMR, med rec, consults, notes, labs, radiology, d/w GI and nursing � 54 mins
Original Note:
Today's Communication/Plan
-
Continue tube feeds
PPI
Monitor I's and O's
Monitor labs and replete electrolytes as needed
Assessment / Plan
Assessment / Plan
Assessment: 69-year-old male with PMH of esophageal cancer s/p recent chemo (FLOT) 08/14/2024 for, s/p GCFS 08/21/24, followed by Dr. Ramos who was transferred from [facility] for diarrhea and weakness. Developed black tarry diarrhea 1 day
post GCFS which continued to worsen with resultant progressive weakness and fatigue, nausea and episodes of dark-colored emesis. Was seen at [facility] 2 days [employer] where he was treated for sigmoid diverticulitis, SBO identified by CT, CODY and RUL
pneumonia. Received IV cefepime, IV PPI and NG decompression.
Assessment/plan:
Acute gastroenteritis
-From recent FLOT regimen (known side effect) vs viral etiology.
-Continue IV PPI.
-NG tube discontinued, Feeding restarted via J-tube.
-GI appreciated.
Locally advanced esophageal adenocarcinoma diagnosed 06/2024
-Ulcerated obstructive mass at GEJ s/p 1 cycle FLOT 08/14 with filgrastim 08/22
-Resume chemo upon hospital discharge per oncology.
-Plan for surgical resection resection with additional 4 courses of chemo afterwards.
-Oncology appreciated.
Severe protein caloric malnutrition
-Moderate orbital fat loss and mild muscle wasting at b/l calves.
-Most likely due to poor oral intake given esophageal adenocarcinoma vs inadequate tube feeds.
-Resume tube feeds when cleared by GI.
-Continue to monitor closely.
N/V/D
-Likely from Resloving SBO.
-N/V resolved on IV Zofran.
-Continue IV PPI twice daily.
Leukocytosis-from G-CSF therapy
-Resolved.
-Zosyn discontinued after 4 days with no infection or abscess on recent CT.
CODY
-Creatinine back to baseline 1.1.
-Continue IV fluids.
-Follow creatinine and volume status.
Nonischemic VA
-Troponin reportedly elevated at [facility].
-Denies chest pain, shortness of breath.
-Trended troponin on admission, last 19.
-No indication to continue to trend unless symptoms.
Hypernatremia
-Resolved.
-Due to hypovolemia, NG and J tube suction.
-IV fluid, NSS.
-Monitor and replete free water.
-Monitor I's and O's, daily weights.
Hypokalemia.
-From GI losses.
-Replete and monitor electrolytes.
Type 2 diabetes mellitus
-Diet controlled.
-Follow serum glucose and cover with SSI.
DVT Prophylaxis: SCDs
Code Status: Full code
Data:
Abd X-ray 08/28/2024:
Oral contrast is not well seen by radiograph. There may be some faint dilute contrast material in the distal colon and rectum.
No disproportionally dilated loops of small bowel or air-fluid levels. No appreciable intraperitoneal free air. Stable enteric tube and jejunostomy tube.
Anticipated Discharge: > 48 hours
Subjective/Interval History
-
Date of Service: August 30, 2024
Pt seen and examined. Was lying comfortably in bed in no acute distress. Reports no acute complaints. No abd pain, chest pain, SOB or fever.
Objective Data
-
Labs:
Laboratory Results
08/30/24
03:38
WBC 8.6
Hgb 8.8 L
Hct 26.0 L
Plt Count 143
Sodium 140
Potassium 3.4 L
Chloride 112 H
Carbon Dioxide 22
BUN 20
Creatinine 0.9
Glucose 107 H
Calcium 8.1 L
Total Bilirubin 0.3
AST 40
ALT 40
Alkaline Phosphatase 69
Vital Signs:
Vital Signs
Temp Pulse Resp BP Pulse Ox
98.0 F 74 18 109/58 99
08/30/24 08:29 08/30/24 08:29 08/30/24 08:29 08/30/24 08:29 08/30/24 08:29
I&O
08/29/24 08/30/24 08/31/24
06:59 06:59 06:59
Intake Total 2880 / 2880 1500 / 1500
Output Total 2475 / 2475 450 / 450
Balance 405 / 405 1050 / 1050
Review of Systems
-
History Source: Patient
All other systems: Reviewed and negative
Physical Exam
-
General: Well Developed, No Apparent Distress and Appears Chronically Ill
HEENT: Nose Appears Normal and Ears Appear Normal
Respiratory: Clear to Auscultation
Cardiac: Regular Rhythm and S1/S2
GI: Soft, Nontender, Nondistended and Other (NG tube with minimal drainage, G-tube in place and draining)
Musculoskeletal: No Clubbing, No Cyanosis and No Edema
Skin: Warm and Dry; Negative Rash
Neuro: Awake, Alert, Oriented and AO x 3
Psych: Calm
Data Reviewed
-
Diagnostic Radiology: Image personally visualized and interpreted, Report Reviewed by me and Discussed with Physician
CT Scan: Image personally visualized and interpreted, Report Reviewed by me and Discussed with Physician
Labs: Labs Reviewed by me and Discussed with Physician
Old Records: Reviewed
--- NOTE | 2024-08-30 13:14 | CM ---
Patient seen at bedside.
NGT removed
Jevity started via [employer] [employer]
PT rec Home Health
Current with [facility]
Referral in [facility]
Called & spoke with Mckenna and updated.
PLAN: home with [facility]
[2024-08-30 14:59] VITALS: BP 105/62
--- NOTE | 2024-08-30 16:13 | W.PN.ONC2 ---
Today's Communication / Plan
-
.
Impression
Impression
a/w SOB/ileus/diverticulitis -NGT
locally advance Esophageal adenocarcinoma diagnosed 07/03/24, ulcerated obstructive mass at GE junction, s/p C1 FLOT 08/14 with filgrastim x 6 doses, last 08/22
jejunostomy 06/2024
hypernatremia
CODY
leukocytosis secondary to GCSF +/- divertic/ileus- infectious w/u negative to date
normocytic anemia. No role for iron repletion with ferritin 400.
Plan
Plan
TF resumed
on ppi
monitor for bleeding
chemotherapy will be resumed upon hospital discharge - optimize PT/OT/nutrition
Subjective/Objective
Subjective
no new complaints
passing flatus and moving bowels
Vital Signs:
Vital Signs
Temp Pulse Resp BP Pulse Ox
98.6 F 99 16 105/62 98
08/30/24 14:59 08/30/24 14:59 08/30/24 14:59 08/30/24 14:59 08/30/24 14:59
Lab Results:
Laboratory Data
WBC 8.6 10^3/uL (4.8-10.8) 08/30/24 03:38
Hgb 8.8 g/dL (13.0-18.0) L 08/30/24 03:38
Plt Count 143 10^3/uL (130-400) 08/30/24 03:38
eGFR > 60.00 08/30/24 03:38
Physical Exam
HEENT: Moist Mucous Membranes; No Jaundice
Cardiology: Normal Sinus Rhythm
Pulmonary: Clear
GI: Distended
Extremities: Pulses Present and Edema
Neuro: Non Focal
[2024-08-30 18:45] LABS: Glucose - Point of Care 73 mg/dl (70-99)
--- NOTE | 2024-08-30 18:51 | W.PN.SURGUPD ---
Surgical Update
Surgical Update
Requested to evaluate patient's jejunostomy tube site.
Patient states that he has noticed intermittent leakage from his jejunostomy tube. This tube was placed back in June at outside hospital. No new abdominal pains.
Reviewed recent CT imaging 08/27/2024. There appears to be a balloon feeding jejunostomy tube in appropriate positioning. Small balloon inflated and an appropriate position opposing the lumen of the jejunum to abdominal wall. No adjacent fluid
collections.
On examination jejunostomy skin exit site is clean. There is a DuoDERM dressing opposed to his skin to protect it. The bumper is safely seated and in appropriate position without excessive tension or too loose.
There are no recommendations to adjust patient's current jejunostomy tube site care
Tube appears to be in normal location both radiographically and on examination.
There is always some degree of leakage around enteral feeding tubes at the skin exit and this should be treated with local skin care measures as are already instituted.
No additional recommendations at this time
[2024-08-30 19:14] VITALS: BP 102/67
[2024-08-30 23:00] VITALS: BP 115/66
[2024-08-30 23:48] LABS: Glucose - Point of Care 98 mg/dl (70-99)
[2024-08-31] MEDS: NOVOLOG FLEXPEN-LOW RESISTANCE SC ×3 (01:09→12:09)
[2024-08-31] MEDS: PROTONIX IV 40 MG IV ×2 (02:31→08:26)
[2024-08-31] MEDS: NSS (PRESERVATIVE FREE) 10 ML IV ×2 (02:31→08:27)
[2024-08-31 03:04] VITALS: BP 115/57
[2024-08-31 05:33] VITALS: BMI 20.7
[2024-08-31 06:22] LABS: Glucose - Point of Care 109 mg/dl (70-99)
--- NOTE | 2024-08-31 07:04 | W.PN.HOSP.TC ---
Addendum entered and electronically signed by Cristian Sauceda MD 08/31/24 22:16:
Attending Addendum-
I saw and evaluated the patient. I reviewed the resident�s note and agree with findings and plan as documented in the resident�s note. Sub: no N/V abd pain. passing liquid stools and flatus. feels great and wants to go home. Full 12 point ROS
reviewed and negative except as documented Exam: Vitals reviewed in chart GEN-NAD heart RRR lungs clear abd soft NT ND pos BS no rebound/guarding J tube in place LE no edema
#Acute gastroenteritis
- s/p chemo- possible s/e and viral
- CT A/P-Some large and small bowel air-fluid levels without intestinal obstruction, nonspecific, possibly representing enteritis
- GI on board
- NG clamp trial passed- remove NG today
- tolerating J tube feeds advancing to goal
- Continue supportive care with IVFs, antiemetics, etc.
# CODY
-prerenal
-resolved
-Continue IV fluids
-repeat BMP in am
# Hypernatremia
-resolved
-cont IVF as NPO
-repeat BMP in am
# Hypokalemia
- replete
- repeat in am
# Non-Ischemic Myocardial Injury
- Normal EKG.
- Troponin peaked
# Leukocytosis-
-resolved
-GCSF received last week
-CT A/P- no abscess
-urine and blood cx - NGTD
-repeat CBC in am
# DM-II
- Follow glucose and cover with SSI as needed.
- A1C 6.6%.
- advance J tube feeds to goal
# Distal Esophageal Adenocarcinoma/Dysphagia
- s/p 1st cycle of chemo.
- Continue PPI IV BID
- Oncology input appreciated
- Resume nutrition support via J-tube
- GI input appreciated
- OP chemo
# Moderate PCM
- nutritional support
- cont j tube feedings
DVT Prophylaxis: SCDs
Code Status: Full
Dispo dc to home with home health home feeds set up as previous
Time spent coordinating care, DC planning, review of DC plan of care with resident, transition of care, review of records, med rec/scripts sent electronically, consults, notes, d/w consultants, nursing, family, GI nutrition and CM� 33 mins
Original Note:
Today's Communication/Plan
-
Change PPI to once daily
Advance tube feeding to goal slowly
Monitor CBC and BMP
CM for dispo
Assessment / Plan
Assessment / Plan
Assessment: 69-year-old male with PMH of esophageal cancer s/p recent chemo (FLOT) 08/14/2024 for, s/p GCFS 08/21/24, followed by Dr. Ramos who was transferred from [facility] for diarrhea and weakness. Developed black tarry diarrhea 1 day
post GCFS which continued to worsen with resultant progressive weakness and fatigue, nausea and episodes of dark-colored emesis. Was seen at [facility] 2 days [employer] where he was treated for sigmoid diverticulitis, SBO identified by CT, CODY and RUL
pneumonia. Received IV cefepime, IV PPI and NG decompression.
Assessment/plan:
#Acute gastroenteritis
-Likely chemo induced enteritis.
-Doing well with NG tube out.
-S/p surgical evaluation of suspected J-tube leakage.
-Tolerating tube feeds (Jevity 1.5) at 50 mL/h.
-Advance feeds as tolerated to goal 60 mL/h.
-Hold laxative.
-PPI now once daily.
-Resume enteral feeds as prior to hospitalization (sips of liquids and ice chips).
-GI appreciated.
-PT/OT.
#Locally advanced esophageal adenocarcinoma diagnosed 06/2024
-Ulcerated obstructive mass at GEJ s/p 1 cycle FLOT 08/14 with filgrastim 08/22
-Resume chemo upon hospital discharge per oncology.
-Plan for surgical resection resection with additional 4 courses of chemo afterwards.
-Oncology appreciated.
#Severe protein caloric malnutrition
-Recently gained 7lbs in 2 days after resuming tube feeding.
-Continue tube feeding and advance slowly to goal.
-Supportive therapy with IV fluids and antiemetics.
Leukocytosis-from G-CSF therapy
-Resolved.
-Zosyn discontinued after 4 days with no infection or abscess on recent CT.
CODY
-Creatinine back to baseline 1.1.
-Continue IV fluids.
-Follow creatinine and volume status.
Nonischemic ND
-No chest pain.
-Troponin trended to peak.
Hypernatremia from hypovolemia.
-Resolved.
Hypokalemia from GI losses.
-Resolved
-Monitor and replete electrolytes.
Type 2 diabetes mellitus
-Diet controlled.
-Follow serum glucose and cover with SSI.
Chronic anemia.
-Hb 8.4.
-Follow CBC
DVT Prophylaxis: SCDs
Code Status: Full code
Data:
Abd X-ray 08/28/2024:
Oral contrast is not well seen by radiograph. There may be some faint dilute contrast material in the distal colon and rectum.
No disproportionally dilated loops of small bowel or air-fluid levels. No appreciable intraperitoneal free air. Stable enteric tube and jejunostomy tube.
Anticipated Discharge: Today
Subjective/Interval History
-
Date of Service: August 31, 2024
I have seen and evaluated patient. Reports that he is feeling better, glad that the NG tube is out. He is also happy with recent weight gain since starting tube feeding. Reports having 3 bowel movements since yesterday. Subjectively looking
better today.
Objective Data
-
Labs:
Laboratory Results
08/31/24
06:58
WBC Pending
Hgb Pending
Hct Pending
Plt Count Pending
Sodium Pending
Potassium Pending
Chloride Pending
Carbon Dioxide Pending
BUN Pending
Creatinine Pending
Glucose Pending
Calcium Pending
Total Bilirubin Pending
AST Pending
ALT Pending
Alkaline Phosphatase Pending
Vital Signs:
Vital Signs
Temp Pulse Resp BP Pulse Ox
98.3 F 85 18 115/57 98
08/31/24 03:04 08/31/24 03:04 08/31/24 03:04 08/31/24 03:04 08/31/24 03:04
I&O
08/30/24 08/31/24 09/01/24
06:59 06:59 06:59
Intake Total 1500 / 1500 1880 / 1880
Output Total 450 / 450 850 / 850
Balance 1050 / 1050 1030 / 1030
Review of Systems
-
History Source: Patient
All other systems: Reviewed and negative
Physical Exam
-
General: Well Developed, No Apparent Distress and Comfortable
HEENT: Atraumatic, Nose Appears Normal and Ears Appear Normal
Respiratory: Clear to Auscultation
Cardiac: Regular Rhythm and S1/S2
GI: Soft, Nontender, Nondistended and Other (J tube for feeding)
Musculoskeletal: No Clubbing, No Cyanosis and No Edema
Skin: Warm and Dry; Negative Rash
Neuro: Awake, Alert, Oriented and AO x 3
Psych: Calm
Data Reviewed
-
Diagnostic Radiology: Image personally visualized and interpreted, Report Reviewed by me and Discussed with Physician
CT Scan: Image personally visualized and interpreted, Report Reviewed by me and Discussed with Physician
Labs: Labs Reviewed by me and Discussed with Physician
Old Records: Reviewed
[2024-08-31 07:10] VITALS: BP 113/55
--- NOTE | 2024-08-31 07:44 | W.PN.GI.CBS2 ---
Addendum entered and electronically signed by Antonio Arnold MD 08/31/24 08:58:
I saw and examined the patient.
The PAPER BALER or PA's note was reviewed and I agree with the note.
Comment: 69 yo M here with likely chemo induced enteritis now with NGT out doing well.
GI will sign off please call with ?s.
Original Note:
Today's Communication / Plan
-
Etiology of high output related to enteritis- chemo related vs infectious but neg studies vs SBO vs other
norovirus neg, c-diff and stool studies neg
tolerating NGT out with + stools
no vomiting and some loose stool but marked less than admission
s/p surgical eval for J tube leakage
cont to advance feeds to goal
ok for sips liquid and ice chips
when pt tolerating tube feeds at goal can resume small amount of pleasure foods as tolerated
hold further laxatives
transition PPI to daily dosing
AM labs pending
resume chemo schedule per oncology
pt doing well will sign off call if any issues or concerns
follow up at [facility] where J tube placed if any further issues with drainage
Assessment / Plan
-
69-year-old male with past medical history of recently diagnosed esophageal cancer ([facility]), after presenting for food impaction on 07/03/2024 with ulcerated obstructive mass that is high-grade adenocarcinoma at the GE junction.
Staging as an outpatient PET CT scan on 07/20/2024 revealed evidence of GE junction lesion measuring 4.5 x 2.7 cm with regional babak involvement. Patient had port placed J tube placed for nutritional support and noted hx chronic diarrhea that
improved with tube feed regiment. Started chemotherapy 08/14/2024 with FLOT chemo with CSF. Who presented to [facility] on after having acute onset of nausea, vomiting and diarrhea that started on Tuesday. The patient states he
had upwards of 35 episodes of such. He states it was black in color from both ends but admits to pepto use. Per admission records the patient was treated for diverticulitis, small bowel obstruction, CODY and right upper lobe pneumonia. NG tube was
placed and patient was given IV fluids and antibiotics. He was started on IV cefepime, IV PPI and NG tube decompression. At [facility] he had a lactate of 6.5. On presentation here was 2.0. The patient was transferred here for continuity
of care given his oncologist is at [facility]. He has been noted with persistent elevated NGT output since admission.
08/23/24 CT chest/abd/pelvis without contrast-(biloxi) dilated esophagus, stomach and proximal small bowel with decompression distal/ileal small bowel loops, pattern favors SBO with differential including severe ileus, acute diverticulitis of
proximal sigmoid colon with segmental colonic wall thickening, diffusely fluid filled colon, no pneumoperitoneum, J tube in satisfactory position, subtle patchy ground glass opacity right upper lobe, likely infectious/inflammatory
08/27/24 CT Abd/pel (oral only)-[facility] Only
Evaluation overall limited without intravenous contrast and with some relative paucity of oral contrast, lateral only incompletely opacified small bowel. Some large and small bowel air-fluid levels without intestinal obstruction, nonspecific,
possibly representing enteritis.
No abnormal focal fluid collection to suggest an abscess although somewhat limited without intravenous contrast paucity of contrast.
08/28/24 Abd X ray
Oral contrast is not well seen by radiograph. There may be some faint dilute contrast material in the distal colon and rectum.
No disproportionally dilated loops of small bowel or air-fluid levels. No appreciable intraperitoneal free air. Stable enteric tube and jejunostomy tube
Impression:
Nausea, vomiting, diarrhea
Esophageal cancer (adenocarcinoma recently diagnosed 07/03/24) ulcerated obstructive mass at GE junction s/p first chemo 08/14
Small bowel obstruction/enteritis/ileus with high NGT outputs
Leukocytosis improving slowly-- recent CSF given
diverticulitis noted on CT at [place]
-hypokalemia
Plan
Etiology of high output related to enteritis- chemo related vs infectious but neg studies vs SBO vs other
norovirus neg, c-diff and stool studies neg
tolerating NGT out with + stools
no vomiting and some loose stool but marked less than admission
s/p surgical eval for J tube leakage
cont to advance feeds to goal
ok for sips liquid and ice chips
when pt tolerating tube feeds at goal can resume small amount of pleasure foods as tolerated
hold further laxatives
transition PPI to daily dosing
AM labs pending
resume chemo schedule per oncology
pt doing well will sign off call if any issues or concerns
follow up at [facility] where J tube placed if any further issues with drainage
Subjective
Subjective
Date of Service: August 31, 2024
some issues with drainage around J tube s/p surg eval. + stools less than on admission but loose, tube feeds up to 50ml/hr feeling well no vomiting and tolerating NGT being out
Objective
Data Reviewed
Laboratory Data:
Laboratory Results
Magnesium 2.7 mg/dl (1.6-2.3) H 08/25/24 05:58
Total Bilirubin 0.3 mg/dl (0.2-1.3) 08/30/24 03:38
AST 40 U/L (17-59) 08/30/24 03:38
ALT 40 U/L (0-50) 08/30/24 03:38
Alkaline Phosphatase 69 U/L (38-126) 08/30/24 03:38
Vital Signs and I&O:
Vital Signs
Temp Pulse Resp BP Pulse Ox
98.3 F 85 18 115/57 98
08/31/24 03:04 08/31/24 03:04 08/31/24 03:04 08/31/24 03:04 08/31/24 03:04
I&O
08/30/24 08/31/24 09/01/24
06:59 06:59 06:59
Intake Total 1500 / 1500 1880 / 1880
Output Total 450 / 450 850 / 850
Balance 1050 / 1050 1030 / 1030
Physical Exam
Physical Exam
HEENT: Anicteric and Moist mucous membranes
Cardiology: Normal Sinus Rhythm
Pulmonary: Clear
GI: Soft, Distended (very minimal ), Non Tender and Other (J tube with dressing clean and intact )
Extremities: No Edema
Neuro: Non Focal
[2024-08-31] MEDS: FLUSH (NSS) 2 FLUSH IV (08:27)
[2024-08-31 08:48] LABS: % Basophils 0.5 % (0-2); % Eosinophils 0.8 % (0-6); % Immature Granulocytes 2.5 % (0-0.5); % Lymphocytes 15.2 % (20.5-51.1); % Monocytes 6.6 % (1.7-9.3); % Neutrophils 74.4 % (42.2-75.2); Absolute Eosinophils 0.1 10^3/uL (0-0.7); Absolute Immature Granulocytes 0.2 10^3/uL (0-0.05); Absolute Lymphocytes 1.3 10^3/uL (1.2-3.4); Absolute Monocytes 0.6 10^3/uL (0.1-0.6); Absolute Neutrophils 6.3 10^3/uL (1.4-6.5); Hematocrit 25.5 % (39.0-52.0); Hemoglobin 8.4 g/dL (13.0-18.0); Mean Corp Hgb Conc. 32.9 g/dL (33.0-37.0); Mean Corpuscular Hgb 30.8 pg (27.0-31.0); Mean Corpuscular Volume 93.4 fL (80.0-94.0); Mean Platelet Volume 10.9 fL (7.4-10.4); Nucleated Red Blood Cells % 0 % (-); Platelet Count 162 10^3/uL (130-400); Red Blood Cell Count 2.73 10^6/uL (4.70-6.10); White Blood Cell Count 8.4 10^3/uL (4.8-10.8)
[2024-08-31 09:34] LABS: ALT (SGPT) 38 U/L (0-50); AST (SGOT) 37 U/L (17-59); Albumin 2.2 g/dl (3.5-5.0); Alkaline Phosphatase 81 U/L (38-126); Blood Urea Nitrogen 14 mg/dl (9-20); Calcium 7.8 mg/dl (8.4-10.2); Carbon Dioxide 21 mmol/L (22-30); Chloride 114 mmol/L (98-107); Estimated Creatinine Clearance 77 ml/min; Glucose 114 mg/dl (70-99); Potassium 3.6 mmol/L (3.5-5.1); Sodium 140 mmol/L (135-145); Total Bilirubin 0.2 mg/dl (0.2-1.3); Total Protein 4.2 g/dl (6.3-8.2); eGFR > 60.00
[2024-08-31 11:28] VITALS: BP 100/60; BP 72/55; BP 99/54; PULSE 80; PULSE 82; PULSE 90
[2024-08-31 12:04] LABS: Glucose - Point of Care 102 mg/dl (70-99)
--- NOTE | 2024-08-31 12:30 | PTCARENOTE ---
Orthos positive, pt tachy with ambulation. MD and resident made aware, no new orders at this time.
--- NOTE | 2024-08-31 13:27 | CM ---
Addendum entered by Crys Starks 08/31/24 16:25:
Spoke with Mckenna at [facility].
Will admit the patient tonight
Faxed Jyoti script for enteral feeds.
Original Note:
IMM explained & signed.
Spoke with Jyoti from [facility]. Script to be faxed to resume enteral feeds
independent with tube feeds as he had prior to hospitalization
Current with [facility] -RN, PT,OT
Spoke with Mckenna in intake at [place] regarding dc today
Updated careport
PLAN: [facility]ONAT[facility] with [facility] Fax #: [phone]
[facility] fax #: [phone]
brother to transport
--- NOTE | 2024-08-31 13:31 | W.DCSUMMARY ---
Addendum entered and electronically signed by Cristian Sauceda MD 08/31/24 22:16:
Read, reviewed, and agree. See same day progress note for additional details.
Jurgen Sauceda MD
Original Note:
Documented by User: Darin Gaviria MD, Resident 08/31/24 19:10
Discharge Summary
Discharge Data
Date of Admission: 08/24/24
Date of Discharge: 08/31/24
-
Pending Results: No
Hospital Course
Discharging Physician : Cristian Sauceda MD ; Darin Gaviria MD
Disposition : Home with home health
Primary care physician : Addis Pleitez DO
Principal Discharge diagnosis :
Acute gastroenteritis
CODY
Hyponatremia
Hypokalemia
Non-ischemic myocardial injury
Leukocytosis
Type 2 diabetes mellitus
Distal esophageal adenocarcinoma
Ordered PCM
Hospital Course :
69-year-old male with PMH of esophageal cancer s/p recent chemo (FLOT) 08/14/2024 for, s/p GCFS 08/21/24, followed by Dr. Ramos who was transferred from [facility] for diarrhea and weakness. Developed black tarry diarrhea 1 day post GCFS
which continued to worsen with resultant progressive weakness and fatigue, nausea and episodes of dark-colored emesis. Was seen at [facility] [facility] where he was treated for sigmoid diverticulitis, SBO identified by CT, CODY and RUL pneumonia.
While in the hospital, patient was seen in consultation with gastroenterology, and oncology. He was also evaluated by general surgery for suspected J-tube leakage.
#Acute gastroenteritis
Likely from chemotherapy vs viral infection. An NG tube was inserted in the ED for decompression and a J-tube was connected to gravity during his hospital stay. He was also treated with IV PPI. The NG tube was clamped on fourth day of hospital
stay and was ultimately discontinued after tolerating for 24 hours. His tube feeds was resumed at 10 mL/h and increased to target 60 mL/h every 8 hours.
#Locally advanced esophageal adenocarcinoma diagnosed 06/2024
Patient was evaluated by oncology. His chemotherapy will resume upon discharge. Follow-up has been set up by oncology.
#CODY
His creatinine was 2.5 on admission and continued to improve throughout his hospital stay. At discharge his creatinine normalized to 0.8.
Condition on discharge: Awake, alert and oriented x3, answer question properly, able to make own decision and take care of activities of daily living, speech clear and comprehensive, continent of the bowel and bladder, ambulate without assistant golf coach,
goes home where lives independently.
Important imaging findings :
Evaluation overall limited without intravenous contrast and with some relative paucity of oral contrast, lateral only incompletely opacified small bowel. Some large and small bowel air-fluid levels without intestinal obstruction, nonspecific,
possibly representing enteritis.
No abnormal focal fluid collection to suggest an abscess although somewhat limited without intravenous contrast paucity of contrast.
Discharge Plan
-
Patient Disposition: Home with Home Care
Discharge Diagnosis/Procedures: Acute gastroenteritis
CODY
Hyponatremia
Hypokalemia
Non-ischemic myocardial injury
Leukocytosis
Type 2 diabetes mellitus
Distal esophageal adenocarcinoma
Ordered PCM
Condition: Good
Diet: As tolerated and Tube feeding
Additional Diets: Pur�ed food
Activity: No restrictions and As tolerated
Driving Restrictions: As prior to admission
Bathing Restrictions: None
Other Services: VN, PT and OT
Activity Restrictions/Additional Instructions:
Wound Care Instructions
abdomen-J tube site:clean skin with warm water, skin prep periwound, Exuderm thin(duoderm) cut to fit around tube, change q 3 days and prn drainage. Split gauze under bumper, change daily and prn soilage.
Follow up at wound care center call for an appointment.\\
Resume enteral feeds (Jevity 1.5 at 90 mL/h) as prior to hospitalization.
Follow-up with oncology outpatient as scheduled
Referrals:
Addis Pleitez DO [Other] - in less than 1 week
Troy Alfaro, DO [Active] - in 4 days
Prescriptions:
No Action
Unobtainable
0
Discharge Orders:
Discharge Patient (As Directed); Ordered 08/31/24
Ordered By: Darin Gaviria
Discharge Date and Time
Discharge Date/Time: 08/31/24 17:44
Print Language: PORTUGUESE

Documented by User: Cristian Sauceda MD 08/31/24 22:13
Discharge Summary
Discharge Data
Date of Admission: 08/24/24
Date of Discharge: 08/31/24
Discharge Plan
-
Patient Disposition: Home with Home Care
Discharge Diagnosis/Procedures: Acute gastroenteritis
CODY
Hyponatremia
Hypokalemia
Non-ischemic myocardial injury
Leukocytosis
Type 2 diabetes mellitus
Distal esophageal adenocarcinoma
Ordered PCM
Condition: Good
Diet: As tolerated and Tube feeding
Additional Diets: Pur�ed food
Activity: No restrictions and As tolerated
Driving Restrictions: As prior to admission
Bathing Restrictions: None
Other Services: VN, PT and OT
Activity Restrictions/Additional Instructions:
Wound Care Instructions
abdomen-J tube site:clean skin with warm water, skin prep periwound, Exuderm thin(duoderm) cut to fit around tube, change q 3 days and prn drainage. Split gauze under bumper, change daily and prn soilage.
Follow up at wound care center call for an appointment.\\
Resume enteral feeds (Jevity 1.5 at 90 mL/h) as prior to hospitalization.
Follow-up with oncology outpatient as scheduled
Referrals:
Addis Pleitez DO [Other] - in less than 1 week
Troy Alfaro DO [Active] - in 4 days
Prescriptions:
No Action
Unobtainable
0
Discharge Orders:
Discharge Patient (As Directed); Ordered 08/31/24
Ordered By: Darin Gaviria
Discharge Date and Time
Discharge Date/Time: 08/31/24 17:44
Print Language: PORTUGUESE
[2024-08-31 15:05] VITALS: BP 104/55
== END 2024-08-31 17:44 | disposition home health service (06) | DRG 394 ==
LOC: 2 NORTH 23:23
PROVIDERS: Hospitalist; Internal Medicine; Nurse Practitioner; Nurse Practitioner Acute Care; Nurse Practitioner Adult Health; Student in an Organized Health Care Education/Training Program; ADMITTING PHYSICIAN Hospitalist; ATTENDING PHYSICIAN Family Medicine; CONSULT PHYSICIAN Internal Medicine; CONSULT PHYSICIAN Internal Medicine Hematology & Oncology
DX: K52.1 Toxic gastroenteritis and colitis (principal); C15.5 Malignant neoplasm of lower third of esophagus; N17.9 Acute kidney failure, unspecified; E87.1 Hypo-osmolality and hyponatremia; I5A Non-ischemic myocardial injury (non-traumatic); K56.7 Ileus, unspecified; K57.32 Diverticulitis of large intestine without perforation or abscess without bleeding; E87.0 Hyperosmolality and hypernatremia; E87.20 Acidosis, unspecified; E44.0 Moderate protein-calorie malnutrition; E87.6 Hypokalemia; E11.649 Type 2 diabetes mellitus with hypoglycemia without coma; T45.1X5A Adverse effect of antineoplastic and immunosuppressive drugs, initial encounter; A08.4 Viral intestinal infection, unspecified; Z80.0 Family history of malignant neoplasm of digestive organs; Z80.3 Family history of malignant neoplasm of breast; Z93.4 Other artificial openings of gastrointestinal tract status; E86.1 Hypovolemia; Z68.20 Body mass index [BMI] 20.0-20.9, adult; D63.0 Anemia in neoplastic disease
CPT/HCPCS: 74018; 74176; 80048; 80053; 82570; 82607; 82728; 82746; 82962; 83540; 83550; 83605; 83735; 84300; 85025; 85027; 87040; 87045; 87046; 87324; 87427; 87449; 87798; 97116; 97162; 97166; 97530; J3480

== ENCOUNTER → 2024-09-10 14:19 | Outpatient (REF) | payer MEDICARE, SELFPAY ==
[2024-09-10 12:34] LABS: % Basophils 0.6 % (0-2); % Eosinophils 3.7 % (0-6); % Immature Granulocytes 0.4 % (0-0.5); % Lymphocytes 19.5 % (20.5-51.1); % Monocytes 12.5 % (1.7-9.3); % Neutrophils 63.3 % (42.2-75.2); Absolute Eosinophils 0.2 10^3/uL (0-0.7); Absolute Lymphocytes 0.9 10^3/uL (1.2-3.4); Absolute Monocytes 0.6 10^3/uL (0.1-0.6); Hematocrit 28.6 % (39.0-52.0); Hemoglobin 9.1 g/dL (13.0-18.0); Mean Corp Hgb Conc. 31.8 g/dL (33.0-37.0); Mean Corpuscular Hgb 31.2 pg (27.0-31.0); Mean Corpuscular Volume 97.9 fL (80.0-94.0); Mean Platelet Volume 9.7 fL (7.4-10.4); Platelet Count 265 10^3/uL (130-400); Red Blood Cell Count 2.92 10^6/uL (4.70-6.10); Red Cell Dist. Width 15.8 % (11.5-14.5); White Blood Cell Count 4.8 10^3/uL (4.8-10.8)
[2024-09-10 13:56] LABS: ALT (SGPT) 22 U/L (0-50); AST (SGOT) 24 U/L (17-59); Albumin 3.3 g/dl (3.5-5.0); Alkaline Phosphatase 90 U/L (38-126); Blood Urea Nitrogen 16 mg/dl (9-20); Calcium 9.3 mg/dl (8.4-10.2); Carbon Dioxide 28 mmol/L (22-30); Chloride 102 mmol/L (98-107); Glucose 98 mg/dl (70-99); Magnesium 2.1 mg/dl (1.6-2.3); Potassium 4.1 mmol/L (3.5-5.1); Sodium 137 mmol/L (135-145); Total Bilirubin 0.3 mg/dl (0.2-1.3); eGFR > 60.00
== END ==
LOC: OIDL 14:19
PROVIDERS: ATTENDING PHYSICIAN Internal Medicine Hematology & Oncology
DX: C15.5 Malignant neoplasm of lower third of esophagus (principal)
CPT/HCPCS: 80053; 83735; 85025

== ENCOUNTER → 2025-01-16 13:46 | Outpatient (REF) | payer MEDICARE, SELFPAY | LOC: MRI 3T 13:46 | PROVIDERS: ATTENDING PHYSICIAN Radiology Radiation Oncology; FAMILY PHYSICIAN Physician Assistant | DX: C79.51 Secondary malignant neoplasm of bone (principal) | CPT/HCPCS: 73723; A9575 ==

== ENCOUNTER 2025-01-18 13:37 | Inpatient (IN) | payer MEDICARE, SELFPAY ==
[2025-01-18] VITALS (8 sets, daily range): BP systolic 120–148; BP diastolic 71–93; BMI 21.4
--- NOTE | 2025-01-18 10:10 | ED.GENMED ---
History of Present Illness
General
Chief Complaint: Abdominal Symptoms
Source: patient
Exam Limitations: none
Time Seen by Provider: 01/18/25 09:52
History of Present Illness
History of Present Illness:
Patient with ongoing issues with his J-tube. J-tube is still functioning. He has had increased drainage progressive over weeks. He has been trying to be on oral antibiotics without success. He is told he is here for admission. He was told to
physicians recommend that he be admitted. Also had some nausea vomiting for last 3 to 4 days. Unable to take p.o. Known esophageal CA
Past History
Past History
ED Past Medical History: Cancer (Esophageal)
ED Past Surgical History: Other (J-tube)
Review of Systems
Review of Systems
All Other Systems: Not applicable
Constitutional: Denies fever or chills
Phy Exam
Physical Exam
Physical Exam:
GENERAL: Alert and oriented in no apparent distress
EYE: Orbits normal.
NECK: Supple. No drooling no stridor.
CARDIAC: Regular rate and rhythm without any obvious murmurs.
LUNGS: Clear breath sounds,normal
ABDOMEN: Soft, mild distention. Bowel sounds present. Nontender. J-tube in place with moderate superficial erythema and skin breakdown under the bulb and extending beyond that.
NEUROLOGICAL: Alert and oriented , grossly non-focal
SKIN: Warm and dry, no rash or lesion, no discoloration, skin intact.
MUSCULOSKELETAL: No edema,no deformity.Good color
PSYCH: Normal and appropriate interaction.
Course
Orders/Labs/Results
Orders:
Orders
01/18/25 Lunch
NPO
Allow oral meds: Yes
Allow clear liquids: Sips of Clears
01/18/25 10:09
IV Insert/Care/Rem.- Treatment PRN
0.9% Sodium Chloride 1000 ml [Nss] 1,000 ml IV BOLUS
01/18/25 10:10
CR Obstruct Series W/pa Chest Urgent
Comment:
Reason For Exam: Vomiting. J-tube
01/18/25 10:28
Complete Blood Count/With Diff Urgent
Comprehensive Metabolic Panel Urgent
Ferritin Urgent
Folate Urgent
Iron Urgent
Comment: ADD ON
Total Iron Binding Urgent
Comment: ADD ON
Vitamin B12 Urgent
01/18/25 13:23
Admit/Transfer Patient As Directed
Co-Sign Provider:
Level of Care: Inpatient admission
Assign to:: Medical/Surgical
Physician / Group: fong/hospitalist
Diagnosis: nausea/cellulitis/constipation
Reason for Hospitalization: nausea/cellulitis/constipation
Expected length of stay greater than two midnights?: Yes
ELOS- Estimated Length of Stay in days: 5
I certify the patient meets the requirements for IP care: Yes
PRN Pain Medication Management As Directed
May give lesser potent ordered pain med per pt: Yes
preference::
Protocol:: Medication orders for pain may be administered in a
manner that supports deferring to patient preference
when the pt is:
- Requesting an ordered lesser potent pain medication.
Least to most potent pain medications are defined
as: acetaminophen < NSAID < tramadol < opioids
(morphine, oxycodone, hydromorphone).
- Requesting a lesser dose of the same medication IF
ORDERED.
- Requesting a less intrusive route of administration
if both routes are prescribed by the provider (PO <
IV).
01/18/25 13:24
Code Status As Directed
Resuscitation Status: Full Code
01/18/25 13:34
Lactate Level [Lactic Acid] Urgent
Blood Culture Q30M
VINAYAK Source: Blood/Venous
Specimen Description:
01/18/25 14:21
Blood Culture Q30M
VINAYAK Source: Blood/Venous
Specimen Description:
01/18/25 14:31
Acetaminophen [Tylenol] 650 mg TUBE Q4HPRN PRN
Bisacodyl [Dulcolax] 10 mg RECTAL [id number] PRN
Lactated Ringers [Lr] 1,000 ml IV 100 mls/hr
Ondansetron Injectable [Zofran] 4 mg IV Q6HPRN PRN
01/18/25 14:31
Add On- LAB Routine
Tests Added?: iron,ferritin,tibc, b12 and folate level
Activity As Directed
Activity Level: Out of Bed-Early Mobility
Vital Signs As Directed
Frequency: Per unit guidelines
DX Deep Vein Thrombosis Video Routine
01/18/25 15:00
Piperacillin/Tazo 3.375 Gram [Zosyn] 3.375 gram in 50 ml IV Q6
01/18/25 18:00
Enoxaparin Sodium [Lovenox] 40 mg SC QPM
01/18/25 20:00
Docusate W/Senna [Senokot-S] 1 tablet TUBE BID
Polyethylene Glycol Powder [Miralax] 17 grams TUBE BID
01/19/25 06:00
Basic Metabolic Panel IN AM
Complete Blood Count/With Diff IN AM
Magnesium IN AM
01/19/25 08:00
Famotidine [Pepcid] 20 mg IV DAILY
01/20/25 06:00
Complete Blood Count/With Diff IN AM
01/21/25 06:00
Complete Blood Count/With Diff IN AM
Abnormal Lab Results
01/18/25
10:28
WBC 31.2 H 10^3/uL
(4.8-10.8)
RBC 3.16 L 10^6/uL
(4.70-6.10)
Hgb 8.5 L g/dL
(13.0-18.0)
Hct 27.2 L %
(39.0-52.0)
MCH 26.9 L pg
(27.0-31.0)
MCHC 31.3 L g/dL
(33.0-37.0)
RDW 16.9 H %
(11.5-14.5)
Abs Immat Gran (auto) 0.4 H 10^3/uL
(0-0.05)
Absolute Neuts (auto) 27.8 H 10^3/uL
(1.4-6.5)
Absolute Monos (auto) 1.6 H 10^3/uL
(0.1-0.6)
Immature Gran % 1.2 H %
(0-0.5)
Neutrophils % 88.8 H %
(42.2-75.2)
Lymphocytes % 4.4 L %
(20.5-51.1)
BUN 39 H mg/dl
(9-20)
Glucose 147 H mg/dl
(70-99)
ALT 72 H U/L
(0-50)
Alkaline Phosphatase 164 H U/L
(38-126)
01/18/25 10:28
01/18/25 10:28
Vital Signs
Initial and Last Documented VS:
Initial Vital Signs
Temp Pulse Resp BP Pulse Ox
98.9 F 101 20 123/93 96
01/18/25 08:58 01/18/25 08:58 01/18/25 08:58 01/18/25 08:58 01/18/25 08:58
Last Documented Vital Signs
Temp Pulse Resp BP Pulse Ox
98.3 F 101 18 139/77 98
01/18/25 14:38 01/18/25 14:38 01/18/25 14:38 01/18/25 14:38 01/18/25 14:38
MDM/Problems Addressed
Differential Diagnosis Includes:
Most of this appears to be a dermatitis secondary to drainage. However this is progressing in nature. In addition episodes of nausea and vomiting. IV fluids labs. Reasonable for inpatient management to reevaluate J-tube. Also not unreasonable
to cover with IV antibiotics although a significant portion of this is more dermatitis
*Radiology
Radiology exam reviewed: radiology read reviewed (Nonspecific findings)
*Pulse Oximetry
SaO2: 96
Oxygen Mode of Delivery: Room air
Patient hypoxic: no
*Critical Care Note
Total Time (30-74mins, 75-104mins- exclusive of procedures): Not Applicable
Data Reviewed
Review of Other/Old Records Reveals: Labs, Records, Testing and Discharge Summary
Update Note
Update Note:
Patient remains clinically nontoxic. He is dehydrated. Chronic anemia. Significant leukocytosis however clinically not septic and I do not feel this local cellulitis explains his leukocytosis. Will be admitted for further care
ED Attending Note
-
Portions of this chart may have been created with voice recognition software.� Occasional wrong word or��sound alike� substitutions may have occurred due to the inherent limitations of voice recognition software.
Discharge Plan
Departure
Patient Disposition: Admit
Date of Disposition: 01/18/25
Time of Disposition: 11:21
Presentation/result/management discussed w/ accepting MD/DO: Hospitalist
Discharge Problem:
Abdominal wall cellulitis/dermatitis, Dehydration, Anemia/leukocytosis, History of esophageal CA
Interventions
Interventions:
*Risk Screen - Suicide Last Done: 01/18/25 08:58
*General Assessment Last Done: 01/18/25 08:58
*Neglect/Abuse Screening Last Done: 01/18/25 08:58
*ED COVID-19 Vaccine History Last Done: 01/18/25 12:00
*Nursing Disposition Last Done: 01/18/25 14:35
EZ-[id number] Assessment Last Done: 01/18/25 12:00
Discharge Date and Time
Discharge Date/Time: 01/18/25 14:36
[2025-01-18] MEDS: NSS 1000 IV (10:27)
[2025-01-18 10:36] LABS: Hematocrit 27.2 % (39.0-52.0); Hemoglobin 8.5 g/dL (13.0-18.0); Mean Corp Hgb Conc. 31.3 g/dL (33.0-37.0); Mean Corpuscular Volume 86.1 fL (80.0-94.0); Platelet Count 390 10^3/uL (130-400); Red Cell Dist. Width 16.9 % (11.5-14.5)
[2025-01-18 11:18] LABS: ALT (SGPT) 72 U/L (0-50); AST (SGOT) 40 U/L (17-59); Albumin 3.6 g/dl (3.5-5.0); Alkaline Phosphatase 164 U/L (38-126); Blood Urea Nitrogen 39 mg/dl (9-20); Calcium 9.6 mg/dl (8.4-10.2); Carbon Dioxide 25 mmol/L (22-30); Chloride 107 mmol/L (98-107); Glucose 147 mg/dl (70-99); Nucleated Red Blood Cells % 0 % (-); Potassium 4.7 mmol/L (3.5-5.1); Sodium 142 mmol/L (135-145); Total Protein 7.3 g/dl (6.3-8.2); eGFR > 60.00
--- NOTE | 2025-01-18 12:55 | HPS.HSE ---
Family Physician
-
Family Physician: RAFIQ RAINES MD
Chief Complaint
-
nausea
History of Present Illness
70-year-old male extensive past medical history as below who is presenting from home with complaints of nausea and vomiting. Patient stated erythema around the J tube site and was prescribed antibiotics by PCP. Patient was unable to tolerate p.o.
antibiotics. States of severe nausea and vomiting. States his symptoms have been ongoing for 1 week. States had a small bowel movement yesterday. Denies any lightheaded or dizziness. States of feeling weak. States he uses tube feeds at
nighttime. States he is due to get radiation therapy to his right shoulder and is also due to get radiation to his hip. Patient follows with Dr. Ramos for oncology. J-tube was placed at [facility]. Denies any chest pain,
shortness of breath, lightheadedness, dizziness. Denies any focal weakness. Patient denies any dysuria. Denies dark-colored urine. No lower extremity edema.
Medical History
Past Medical History
Past Medical History: Reports Other
Additional Past Medical History:
Esophageal cancer status post metastasis to shoulder, hips status post chemo and radiation
J-tube placement
Past Surgical History: Reports Other
Additional Past Surgical History:
J-tube placement
Social History
Tobacco: Non-smoker
Alcohol: Former
Family History
Family History: Not pertinent
Allergies / Home Medications
Allergies reflects when Allergies were last updated in [facility].
Home Medications with original date entered in [facility]
Allergy/Medication List:
Allergies
Allergy/AdvReac Type Severity Reaction Status Date / Time
No Known Allergies Allergy Verified 01/18/25 08:58
Home Medications
No Meds [No Current Medications] 01/18/25
Review of Systems
-
History Source: Patient
A 12 point ROS was completed and negative except as noted: Yes
Constitutional: Reports See HPI
EENT: Reports No Symptoms
Respiratory: Reports No Symptoms
Cardiac: Reports No Symptoms
Abdomen/GI: Reports See HPI
: Denies Dysuria, Frequency, Incontinence, Urgency or Dark Urine
Musculoskeletal: Reports No Symptoms
Skin: Reports No Symptoms
Neurological: Reports No Symptoms
Endocrine: Reports No Symptoms
Hematologic/Lymphatic: Reports No Symptoms
Psych: Reports No Symptoms
Physical Exam
Vital Signs
Vital Signs
Temp Pulse Resp BP Pulse Ox
98.9 F 101 20 123/93 96
01/18/25 08:58 01/18/25 08:58 01/18/25 08:58 01/18/25 08:58 01/18/25 10:11
Physical Exam
General: Well Developed, Well Nourished and No Apparent Distress
HEENT: NormoCephalic, Moist mucous membranes and Atraumatic
Respiratory: Clear
Cardiac: S1/S2, Regular Rhythm and Tachycardia; No Murmur or Rub
GI: Soft, Non Distended, Normal Bowel Sounds, Tender and Peg Tube (Erythematous around the J-tube site noted); No Organomegaly
Rectal: Deferred by Provider
Musculoskeletal: No Clubbing and No Edema
Skin: No Rash
Neuro: Awake, Alert, Oriented, AO x 3, No Motor Deficits and Nonfocal/grossly intact
Psych: Calm
Laboratory Results
-
01/18/25 10:28
01/18/25 10:28
Laboratory Results
Total Bilirubin 0.7 mg/dl (0.2-1.3) 01/18/25 10:28
AST 40 U/L (17-59) 01/18/25 10:28
ALT 72 U/L (0-50) H 01/18/25 10:28
Alkaline Phosphatase 164 U/L (38-126) H 01/18/25 10:28
Data Reviewed
-
Diagnostic Radiology: Report Reviewed by me and Discussed with Patient
Lab Data: Labs Reviewed by me and Discussed with Patient
Old Records: Reviewed
Impression/Plan
-
#Severe nausea and vomiting likely secondary to constipation
Start patient with bowel regimen
Start patient on IV fluids
If no improvement in symptoms then check CT abdomen pelvis
#Suspected cellulitis versus dermatitis at the J -tube site
Start patient on broad-spectrum IV antibiotics-Zosyn
Check blood cultures
Trend WBC.
Start patient IV fluids
Check lactic acid
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
On chemotherapy and radiation
Due to start radiation
Follows with [facility] Dr. Ramos
Nutrition evaluation for tube feeding recs
#Anemia likely secondary to malignancy
Update on iron stores B12 and folate
#Suspected protein caloric malnutrition of chronic illness
Nutrition eval
DVT prophylaxis with Lovenox
Full code
I spent a total of 80 minutes with the patient or on the floor. More than 50% of this time involved counseling and coordination of care.
[2025-01-18] MEDS: ZOSYN 50 IV ×2 (15:05→23:20)
[2025-01-18] MEDS: LR 1000 IV (15:05)
[2025-01-18 15:28] LABS: Iron 36 ug/dl (49-181)
[2025-01-18 15:38] LABS: Total Iron Binding Capacity 221 ug/dl (261-462)
--- NOTE | 2025-01-18 16:21 | PTCARENOTE ---
Patient ambulated to bed from stretcher upon arrival to floor. Redness noted around Jtube. No complaints of n/v at this time. IVF started via R FA. NPO status maintained. Call lynn within reach. Oriented to room.
[2025-01-18] MEDS: LOVENOX 40 MG SC (16:53)
[2025-01-18 16:58] LABS: Folate 12.4 ng/ml (2.76-20); Vitamin B12 916 pg/ml (239-931)
[2025-01-18 17:12] LABS: Ferritin 1350.0 ng/ml (17.9-464.0)
[2025-01-18] MEDS: MIRALAX 17 GRAMS TUBE (20:26)
[2025-01-18] MEDS: SENOKOT-S 1 TABLET TUBE (20:27)
[2025-01-19] MEDS: LR 1000 IV ×2 (01:42→13:15)
[2025-01-19] MEDS: ZOSYN 50 IV ×4 (05:01→23:18)
[2025-01-19 07:25] VITALS: BP 140/78
[2025-01-19 07:53] LABS: Hematocrit 24.9 % (39.0-52.0); Hemoglobin 7.9 g/dL (13.0-18.0); Mean Corp Hgb Conc. 31.7 g/dL (33.0-37.0); Mean Corpuscular Volume 86.2 fL (80.0-94.0); Platelet Count 374 10^3/uL (130-400); Red Cell Dist. Width 17.0 % (11.5-14.5)
[2025-01-19 07:55] LABS: Blood Urea Nitrogen 27 mg/dl (9-20); Calcium 9.2 mg/dl (8.4-10.2); Carbon Dioxide 22 mmol/L (22-30); Chloride 108 mmol/L (98-107); Estimated Creatinine Clearance 79 ml/min; Glucose 113 mg/dl (70-99); Magnesium 2.2 mg/dl (1.6-2.3); Potassium 4.3 mmol/L (3.5-5.1); Sodium 141 mmol/L (135-145); eGFR > 60.00
[2025-01-19 09:06] LABS: Absolute Neutrophils -Man Diff 30.5 10^3/uL (1.4-6.5)
[2025-01-19 09:07] LABS: Anisocytosis Slight; Hypochromasia +1; Normal RBC Morphology No; Platelets Checked YES
[2025-01-19 09:08] LABS: Ovalocytes FEW; Target Cells FEW; Total Cells Counted 100
[2025-01-19] MEDS: PEPCID 20 MG IV (10:57)
[2025-01-19] MEDS: NSS (PRESERVATIVE FREE) 8 ML IV (10:58)
[2025-01-19] MEDS: MIRALAX 17 GRAMS TUBE ×2 (10:58→21:05)
[2025-01-19] MEDS: SENOKOT-S 1 TABLET TUBE ×2 (10:58→21:05)
--- NOTE | 2025-01-19 12:13 | W.PN.HOSP.TC ---
Today's Communication/Plan
-
Start tube feeds. Continue fluids.
Continue to biotic
Bowel regimen
Trend WBC. Trend hemoglobin.
Assessment / Plan
Assessment / Plan
General: Well Developed, Well Nourished and No Apparent Distress
HEENT: NormoCephalic, Moist mucous membranes and Atraumatic
Respiratory: Clear
Cardiac: S1/S2, Regular Rhythm and Tachycardia; No Murmur or Rub
GI: Soft, Non Distended, Normal Bowel Sounds, Tender and Peg Tube (Erythematous around the J-tube site noted-seems to have improved); No Organomegaly
Rectal: Deferred by Provider
Musculoskeletal: No Clubbing and No Edema
Skin: No Rash
Neuro: Awake, Alert, Oriented, AO x 3, No Motor Deficits and Nonfocal/grossly intact
Psych: Calm
#Severe nausea and vomiting likely secondary to constipation
Start patient with bowel regimen
Start patient on IV fluids
If no improvement in symptoms then check CT abdomen pelvis
#Suspected cellulitis versus dermatitis at the J -tube site
Start patient on broad-spectrum IV antibiotics-Zosyn
Check blood cultures in the lab
Trend WBC. Leukocytosis persist.
Continue IV fluids
Lactic normal
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
On chemotherapy and radiation
Due to start radiation
Follows with [facility] Dr. Ramos
Nutrition evaluation for tube feeding recs-started on tube feeds
#Anemia likely secondary to malignancy
Likely of chronic disease
Hemoglobin 7.9 likely dilutional component. No luminal bleeding noted.
Continue to trend hemoglobin.
Transfuse for hemoglobin less than 7.
#Suspected protein caloric malnutrition of chronic illness
Nutrition eval
DVT prophylaxis with Lovenox
Full code
Anticipated Discharge: > 48 hours
Subjective/Interval History
-
Date of Service: January 19, 2025
States of hiccups
Had small BM earlier today
Denies nausea
Objective Data
-
Labs:
Laboratory Results
01/19/25
06:30
WBC 32.5 H
Hgb 7.9 L
Hct 24.9 L
Plt Count 374
Sodium 141
Potassium 4.3
Chloride 108 H
Carbon Dioxide 22
BUN 27 H
Creatinine 0.8
Glucose 113 H
Calcium 9.2
Vital Signs:
Vital Signs
Temp Pulse Resp BP Pulse Ox
99.8 F 99 18 140/78 97
01/19/25 07:25 01/19/25 07:25 01/19/25 07:25 01/19/25 07:25 01/19/25 07:25
I&O
01/18/25 01/19/25 01/20/25
06:59 06:59 06:59
Intake Total 1150 / 1150
Output Total 875 / 875
Balance 275 / 275
Data Reviewed
-
Total Time Spent with Patient (in minutes): 55
[2025-01-19] MEDS: MILK OF MAGNESIA 30 ML TUBE (13:15)
--- NOTE | 2025-01-19 15:09 | PTCARENOTE ---
No markings noted on length of J tube. Measured for 17cm from bumper to end of tubing. Dr. Gladis carrillo with using abdominal xray that was completed last night for J tube correct placement.
[2025-01-19 15:15] VITALS: BP 138/80
--- NOTE | 2025-01-19 16:34 | CM ---
Alert awake oriented patient who lives alone in a 2 story home with 2 step to enter. He is independent in driving and in all activities of daily living.He was offered VN he declined need.He has a J Tube with Jevity feedings supplies form [employer].
.
Pt Ne view Vn No SNF hx
Pharmacy [facility]
PCP DR Pleitez
PLAN Home Declined VN
[2025-01-19] MEDS: LOVENOX 40 MG SC (18:19)
[2025-01-19 23:00] VITALS: BP 127/72
[2025-01-20] MEDS: ZOSYN 50 IV ×4 (05:13→23:03)
[2025-01-20 07:43] LABS: Blood Urea Nitrogen 24 mg/dl (9-20); Calcium 8.7 mg/dl (8.4-10.2); Carbon Dioxide 26 mmol/L (22-30); Chloride 107 mmol/L (98-107); Estimated Creatinine Clearance 70 ml/min; Glucose 186 mg/dl (70-99); Potassium 3.9 mmol/L (3.5-5.1); Sodium 140 mmol/L (135-145); eGFR > 60.00
[2025-01-20 07:55] VITALS: BP 131/70
[2025-01-20 08:35] LABS: Hematocrit 24.1 % (39.0-52.0); Hemoglobin 7.5 g/dL (13.0-18.0); Mean Corp Hgb Conc. 31.1 g/dL (33.0-37.0); Mean Corpuscular Volume 87.0 fL (80.0-94.0); Platelet Count 388 10^3/uL (130-400); Red Cell Dist. Width 17.2 % (11.5-14.5)
[2025-01-20] MEDS: PEPCID 20 MG IV (09:55)
[2025-01-20] MEDS: SENOKOT-S 1 TABLET TUBE ×2 (09:55→21:17)
[2025-01-20] MEDS: NSS (PRESERVATIVE FREE) 8 ML IV (09:55)
[2025-01-20] MEDS: MIRALAX 17 GRAMS TUBE ×2 (09:55→21:17)
[2025-01-20] MEDS: FLUSH (NSS) 2 FLUSH IV (09:55)
[2025-01-20 10:42] LABS: Absolute Neutrophils -Man Diff 27.3 10^3/uL (1.4-6.5)
[2025-01-20 10:44] LABS: Normal RBC Morphology No; Platelets Checked YES
[2025-01-20 10:45] LABS: Anisocytosis Slight; Hypochromasia +1; Macrocytosis +1
[2025-01-20 10:46] LABS: Ovalocytes FEW; Polychromasia Slight
[2025-01-20 10:47] LABS: Tear Drop Red Blood Cells FEW; Total Cells Counted 100
--- NOTE | 2025-01-20 12:00 | W.PN.HOSP.TC ---
Today's Communication/Plan
-
Check abdominal imaging today
Post imaging may need to consider aggressive bowel regimen
Continue with IV antibiotics
Trend hemoglobin
Assessment / Plan
Assessment / Plan
General: Well Developed, Well Nourished and No Apparent Distress
HEENT: NormoCephalic, Moist mucous membranes and Atraumatic
Respiratory: Clear
Cardiac: S1/S2, Regular Rhythm and Tachycardia; No Murmur or Rub
GI: Soft, Non Distended, Normal Bowel Sounds, Tender and Peg Tube (Erythematous around the J-tube site noted-improving daily); No Organomegaly
Rectal: Deferred by Provider
Musculoskeletal: No Clubbing and No Edema
Skin: No Rash
Neuro: Awake, Alert, Oriented, AO x 3, No Motor Deficits and Nonfocal/grossly intact
Psych: Calm
#Severe nausea and vomiting
#Constipation
Start patient with bowel regimen
Start patient on IV fluids
Check CT abdomen pelvis today
#Suspected cellulitis versus dermatitis at the J -tube site
Continue with Zosyn.
Check blood cultures in the lab remains negative
Trend WBC. Leukocytosis persist. Check abdominal imaging. Remains afebrile.
Continue IV fluids
Lactic normal
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
On chemotherapy and radiation
Due to start radiation
Follows with [facility] Dr. Ramos
Nutrition evaluation for tube feeding recs-started on tube feeds
#Anemia likely secondary to malignancy
Likely of chronic disease
Hemoglobin 7.5 likely dilutional component. No luminal bleeding noted.
Continue to trend hemoglobin.
Transfuse for hemoglobin less than 7.
#Suspected protein caloric malnutrition of chronic illness
Nutrition eval
DVT prophylaxis with Lovenox
Full code
Anticipated Discharge: > 48 hours
Subjective/Interval History
-
Date of Service: January 20, 2025
Had small bowel movement
Remains afebrile
Objective Data
-
Labs:
Laboratory Results
01/20/25
06:28
WBC 31.1 H
Hgb 7.5 L
Hct 24.1 L
Plt Count 388
Sodium 140
Potassium 3.9
Chloride 107
Carbon Dioxide 26
BUN 24 H
Creatinine 0.9
Glucose 186 H
Calcium 8.7
Vital Signs:
Vital Signs
Temp Pulse Resp BP Pulse Ox
98.9 F 91 16 131/70 95
01/20/25 07:55 01/20/25 07:55 01/20/25 07:55 01/20/25 07:55 01/20/25 07:55
I&O
01/19/25 01/20/25 01/21/25
06:59 06:59 06:59
Intake Total 1150 / 1150 2260 / 2260
Output Total 875 / 875
Balance 275 / 275 2260 / 2260
Data Reviewed
-
Total Time Spent with Patient (in minutes): 55
--- NOTE | 2025-01-20 12:30 | PTCARENOTE ---
Dr. Griffith indicated to hold pt's tube feedings x [address] scan.
[2025-01-20] MEDS: OMNIPAQUE 50 ML PO (12:55)
[2025-01-20 15:55] VITALS: BP 118/68
[2025-01-20] MEDS: LOVENOX 40 MG SC (17:37)
[2025-01-20 23:36] VITALS: BP 126/68
[2025-01-21] MEDS: ZOSYN 50 IV ×4 (05:10→23:55)
[2025-01-21 07:25] VITALS: BP 117/70
[2025-01-21 07:30] LABS: Hematocrit 24.7 % (39.0-52.0); Hemoglobin 7.6 g/dL (13.0-18.0); Mean Corp Hgb Conc. 30.8 g/dL (33.0-37.0); Mean Corpuscular Volume 87.3 fL (80.0-94.0); Platelet Count 361 10^3/uL (130-400); Red Cell Dist. Width 17.2 % (11.5-14.5)
[2025-01-21 07:53] LABS: Blood Urea Nitrogen 21 mg/dl (9-20); Calcium 8.5 mg/dl (8.4-10.2); Carbon Dioxide 25 mmol/L (22-30); Chloride 105 mmol/L (98-107); Estimated Creatinine Clearance 63 ml/min; Glucose 161 mg/dl (70-99); Potassium 3.7 mmol/L (3.5-5.1); Sodium 140 mmol/L (135-145); eGFR > 60.00
[2025-01-21 08:19] LABS: Nucleated Red Blood Cells % 0 % (-)
[2025-01-21 09:08] LABS: Magnesium 2.4 mg/dl (1.6-2.3)
[2025-01-21] MEDS: MIRALAX 17 GRAMS TUBE (09:12)
[2025-01-21] MEDS: FLUSH (NSS) 1 FLUSH IV ×3 (09:12→17:43)
[2025-01-21] MEDS: SENOKOT-S 1 TABLET TUBE (09:12)
[2025-01-21] MEDS: NSS (PRESERVATIVE FREE) 8 ML IV (09:12)
[2025-01-21] MEDS: PEPCID 20 MG IV (09:12)
--- NOTE | 2025-01-21 09:40 | CON.ONC ---
Consultation
-
Date Consultation Requested: 01/21/25
Date Consultation Performed: 01/21/25
Requesting Provider: Dr. Yuval Griffith
Performing Provider: Dr. Mirella Hernandes
Reason for Consultation: esphageal cancer
Impression
Impression
metastatic esophageal carcinoma
recurrent gastric mass causing obstruction
mets to right shoulder, right iliac bone, right femoral neck
J tube infection
progressive anemia may be multifactorial including infection, abx, malignancy, and GI bleeding
Plan
Plan
abx
wound care
antiemetics
check LFTs
check iron studies, though would not utilize parenteral iron if ALISSA detected in setting of acute infection.
XRT R shoulder, R hip planning underway
Chemo XRT planning to recurrent gastric mass causing obstruction underway once J tube infection has resolved
Follow up will be scheduled upon hospital discharge
Patient History
History of Present Illness
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 His initial evaluation was notable for leukocytosis with WBC 32.5, ANC 25.3, Hgb 7.9, and platelet count
361,000. His CT ab/pelvis shows recurrent disease in thee upper abdomen, which appears to involve the stomach and gastroesophageal junction, resulting in obstruction of the esophagus and possible mets to the liver, spleen, and abdominal adenopathy.
He has been admitted, started on IVF and IV abx.
In brief, Cricket was diagnosed with locally advanced esophageal cancer June 2024 s/p Jejunostomy followed by FLOT. Had J tube placement for alternate feeding due to obstructive symptoms at diagnosis. Unfortunately, he has progression of disease
in right shoulder, right iliac bone, and right femur. He has palliative XRT to right shoulder and right hip planning underway. In addition, medical oncology is planning concurrent chemo/XRT. He was recently evaluated at [facility] and PCP for J tube
cellulitis/infection. He was initially treated with Bactrim the transitioned to doxycline, howevere, he delayed the start of the doxycycline and was non-compliant with wound care follow up after [facility] discharge.
Clinically, nausea and vomiting have resolved since with cessation of PO intake. He is moving his bowels with miralax. Denies fever, chills, cough, sob, chest pain, palpitations, headache, dizziness, or bleeding. His right shoulder and right hip
pain are controlled if immobile.
Afebrile, no hypoxia or hypotension
Past-Medical/Surgical History
[facility] skin cancer
[facility] skin cancer resection, jejunostomy 06/2024
Social never smoker, reduced ETOH intake after malignancy dx but prior to dx 10/day. Denies recreational drug use. Single, retired.
Family noncontributory
Patient Medication
�Medication �Instructions �Recorded �Confirmed �Last Taken �Type
No Meds [No Current Medications] 01/18/25 01/18/25 Unknown History
Active Medications
Generic Name Dose Route Start Last Admin
Trade Name Freq PRN Reason Stop Dose Admin
Acetaminophen 650 mg 01/18/25 14:31
Acetaminophen 325 Mg Tablet TUBE 02/15/25 14:30
Q4HPRN PRN
mild pain/KINNEY/temp> 100.4F
Bisacodyl 10 mg 01/18/25 14:31
Bisacodyl 10 Mg Rectal Suppository RECTAL 02/15/25 14:30
[id number] PRN
constipation
Enoxaparin Sodium 40 mg 01/18/25 18:00 01/20/25 17:37
Enoxaparin Sodium 40 Mg/0.4 Ml Syringe SC 02/15/25 17:59 40 mg
QPM JUAN MANUEL Administration
Famotidine 20 mg 01/19/25 08:00 01/21/25 09:12
Famotidine 20 Mg/2 Ml Vial IV 02/16/25 07:59 20 mg
DAILY JUAN MANUEL Administration
Piperacillin Sod/Tazobactam Sod 3.375 gram in 50 mls @ 100 mls/hr 01/18/25 15:00 01/21/25 05:10
Zosyn IV 50 mls
Q6 JUAN MANUEL Administration
Ondansetron HCl 4 mg 01/18/25 14:31
Ondansetron 4 Mg/2 Ml Vial IV 02/15/25 14:30
Q6HPRN PRN
nausea and vomiting
Polyethylene Glycol 17 grams 01/18/25 20:00 01/21/25 09:12
Polyethylene Glycol Powder 17 Grams Packet TUBE 02/15/25 19:59 17 grams
BID JUAN MANUEL Administration
Senna/Docusate Sodium 1 tablet 01/18/25 20:00 01/21/25 09:12
Docusate W/Senna (Olga-Colace) Tablet TUBE 02/15/25 19:59 1 tablet
BID JUAN MANUEL Administration
Sodium Chloride 0 flush 01/18/25 15:00 01/21/25 09:12
Sodium Chloride 0.9% (Flush) Syringe IV 02/15/25 14:59 1 flush
PER PROTOCOL JUAN MANUEL Administration
Sodium Chloride 8 ml 01/19/25 08:00 01/21/25 09:12
Nss 8 Ml Qhs IV 02/16/25 07:59 8 ml
DAILY JUAN MANUEL Administration
Review of Systems
-
ROS is notable for HPI, otherwise negative
Physical Exam
-
General: No Apparent Distress
HEENT: Moist Mucous Membranes; Negative Jaundice
Cardiology: Normal Sinus Rhythm
Pulmonary: Clear
GI: Soft and Other (JTube with eerythema and yellow drainage around site)
Musculoskeletal: Other (limited ROM of RLE at hip and RUE at shoulder due to pain)
Extremities: Pulses Present; Negative Edema
Neurology: Non Focal
Skin: Warm
Psych: Calm
Labs
Lab Results
WBC 29.1 10^3/uL (4.8-10.8) H 01/21/25 06:04
RBC 2.83 10^6/uL (4.70-6.10) L 01/21/25 06:04
Hgb 7.6 g/dL (13.0-18.0) L 01/21/25 06:04
Hct 24.7 % (39.0-52.0) L 01/21/25 06:04
MCV 87.3 fL (80.0-94.0) 01/21/25 06:04
MCH 26.9 pg (27.0-31.0) L 01/21/25 06:04
MCHC 30.8 g/dL (33.0-37.0) L 01/21/25 06:04
RDW 17.2 % (11.5-14.5) H 01/21/25 06:04
Plt Count 361 10^3/uL (130-400) 01/21/25 06:04
MPV 9.6 fL (7.4-10.4) 01/21/25 06:04
Abs Immat Gran (auto) 0.6 10^3/uL (0-0.05) H 01/21/25 06:04
Absolute Neuts (auto) 25.3 10^3/uL (1.4-6.5) H 01/21/25 06:04
Absolute Lymphs (auto) 1.8 10^3/uL (1.2-3.4) 01/21/25 06:04
Absolute Monos (auto) 1.2 10^3/uL (0.1-0.6) H 01/21/25 06:04
Absolute Eos (auto) 0.2 10^3/uL (0-0.7) 01/21/25 06:04
Absolute Basos (auto) 0.1 10^3/uL (0-0.2) 01/21/25 06:04
Immature Gran % 2.0 % (0-0.5) H 01/21/25 06:04
Neutrophils % 86.8 % (42.2-75.2) H 01/21/25 06:04
Lymphocytes % 6.0 % (20.5-51.1) L 01/21/25 06:04
Monocytes % 4.3 % (1.7-9.3) 01/21/25 06:04
Eosinophils % 0.6 % (0-6) 01/21/25 06:04
Basophils % 0.3 % (0-2) 01/21/25 06:04
Creatinine 1.0 mg/dL (0.7-1.3) 01/21/25 06:04
Vital Signs
Vital Signs
Temp Pulse Resp BP Pulse Ox
99.5 F 109 18 117/70 95
01/21/25 07:25 01/21/25 07:25 01/21/25 07:25 01/21/25 07:25 01/21/25 09:09
--- NOTE | 2025-01-21 10:35 | W.PN.HOSP.TC ---
Today's Communication/Plan
-
CT scan with progression of malignancy
Oncology input
Continue with tube feedings
Continue with antibiotics
Assessment / Plan
Assessment / Plan
General: Well Developed, Well Nourished and No Apparent Distress
HEENT: NormoCephalic, Moist mucous membranes and Atraumatic
Respiratory: Clear
Cardiac: S1/S2, Regular Rhythm and Tachycardia; No Murmur or Rub
GI: Soft, Non Distended, Normal Bowel Sounds, Tender and Peg Tube (Erythematous around the J-tube site noted-improving daily); No Organomegaly
Rectal: Deferred by Provider
Musculoskeletal: No Clubbing and No Edema
Skin: No Rash
Neuro: Awake, Alert, Oriented, AO x 3, No Motor Deficits and Nonfocal/grossly intact
Psych: Calm
#Severe nausea and vomiting Likely secondary to obstruction secondary to esophageal adenocarcinoma progression
#Constipation
CT abd/pelvis showing interval progression of gastroesophageal carcinoma.
Strict NPO. Meds via J tube
mouth swab
#Suspected cellulitis versus dermatitis at the J -tube site
Continue with Zosyn.
Check blood cultures in the lab remains negative
Trend WBC. Leukocytosis downtrending. Remains afebrile.
Continue IV fluids
Lactic normal
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
On chemotherapy and radiation
Due to start radiation
Follows with [facility] Dr. Ramos
Nutrition evaluation for tube feeding recs-started on tube feeds
Will ask oncology for input as with progression of malignancy. Unclear if any role of GI has high risk of perforation with any procedure. Will await for further oncology input.
#Anemia likely secondary to malignancy
Likely of chronic disease
Hemoglobin 7.6 likely dilutional component. No luminal bleeding noted.
Continue to trend hemoglobin.
Transfuse for hemoglobin less than 7.
#Suspected protein caloric malnutrition of chronic illness
Nutrition eval
DVT prophylaxis with Lovenox
Full code
Anticipated Discharge: > 48 hours
Subjective/Interval History
-
Date of Service: January 21, 2025
states of dry mouth
Objective Data
-
Labs:
Laboratory Results
01/21/25
06:04
WBC 29.1 H
Hgb 7.6 L
Hct 24.7 L
Plt Count 361
Sodium 140
Potassium 3.7
Chloride 105
Carbon Dioxide 25
BUN 21 H
Creatinine 1.0
Glucose 161 H
Calcium 8.5
Total Bilirubin Pending
AST Pending
ALT Pending
Alkaline Phosphatase Pending
Vital Signs:
Vital Signs
Temp Pulse Resp BP Pulse Ox
99.5 F 109 18 117/70 95
01/21/25 07:25 01/21/25 07:25 01/21/25 07:25 01/21/25 07:25 01/21/25 09:09
I&O
01/20/25 01/21/25 01/22/25
06:59 06:59 06:59
Intake Total 2260 / 2260 2784 / 2784
Balance 2260 / 2260 2784 / 2784
Data Reviewed
-
Total Time Spent with Patient (in minutes): 55
CT Scan: Report Reviewed by me, Discussed with Physician, Discussed with Patient and Other (CT abd/pelvis- There is a large heterogeneously enhancing mass within the central and left upper abdomen, which appears to involve the stomach and
gastroesophageal junction, resulting in obstruction of the esophagus. This likely represents significant interval progression of gastroesophageal carcino)
[2025-01-21 11:01] LABS: ALT (SGPT) 39 U/L (0-50); AST (SGOT) 28 U/L (17-59); Albumin 3.0 g/dl (3.5-5.0); Alkaline Phosphatase 152 U/L (38-126); Total Protein 6.2 g/dl (6.3-8.2)
[2025-01-21 15:26] VITALS: BP 121/71
--- NOTE | 2025-01-21 16:31 | PTCARENOTE ---
Pt AAO x3, SAHU; OOB to BR, needs minimal assistance to get OOB; able to ambulate without assistance; denies weakness/dizziness. VSS. On room air- pulse ox 96%, no SOB. Abd large/rounded, strict NPO maintained. pt sri Jevity 1.5 feeding via PEG
tube; pt reports loose BM's. Voids in BR without difficulty. PEG tube site with scanty amts yellow drainage oozing around site/site reddened; dsg over site D/I. Resting in bed at present. Will continue to monitor.
[2025-01-21] MEDS: LOVENOX 40 MG SC (17:42)
[2025-01-21] MEDS: SENOKOT-S TUBE (20:33)
[2025-01-21] MEDS: MIRALAX TUBE (20:33)
[2025-01-21 23:24] VITALS: BP 118/69
[2025-01-22] MEDS: ZOSYN 50 IV ×3 (05:38→17:50)
[2025-01-22 07:00] VITALS: BP 131/74
[2025-01-22 08:31] LABS: Hematocrit 25.9 % (39.0-52.0); Hemoglobin 7.9 g/dL (13.0-18.0); Mean Corp Hgb Conc. 30.5 g/dL (33.0-37.0); Mean Corpuscular Volume 86.9 fL (80.0-94.0); Platelet Count 363 10^3/uL (130-400); Red Cell Dist. Width 17.3 % (11.5-14.5)
[2025-01-22 08:39] LABS: Blood Urea Nitrogen 19 mg/dl (9-20); Calcium 8.5 mg/dl (8.4-10.2); Carbon Dioxide 25 mmol/L (22-30); Chloride 107 mmol/L (98-107); Estimated Creatinine Clearance 79 ml/min; Glucose 171 mg/dl (70-99); Potassium 3.8 mmol/L (3.5-5.1); Sodium 141 mmol/L (135-145); eGFR > 60.00
[2025-01-22] MEDS: NSS (PRESERVATIVE FREE) 8 ML IV (09:12)
[2025-01-22] MEDS: PEPCID 20 MG IV (09:12)
--- NOTE | 2025-01-22 09:29 | W.PN.ONC ---
Today's Communication / Plan
-
Continues on abx, though suspect leukocytosis is from aggressive malignancy and j-tube infection is more irritation/inflammatory than infected
Continue dressing changes, wound care
Anemia is related to malignancy, no iron def.
Will hold bowel regimen w/ diarrhea yesterday
Plain films of hip without critical lesions
d/c home when able, so that he can initiate RT for palliation to bone mets and obstructing EGJ mass.
Home care for tube feeds/free water
Has f/u with Dr. Ramos next week; will need to discuss goals of care
Impression
Impression
metastatic esophageal carcinoma
recurrent gastric mass causing obstruction
mets to right shoulder, right iliac bone, right femoral neck
J tube infection vs skin irritation from leaking bilious drainage
Leukocytosis, likely from malignany
progressive anemia may be multifactorial including infection, abx, malignancy, and GI bleeding
Plan
Plan
Continues on abx, though suspect leukocytosis is from aggressive malignancy and j-tube infection is more irritation/inflammatory than infected
Continue dressing changes, wound care
Anemia is related to malignancy, no iron def.
Will hold bowel regimen w/ diarrhea yesterday
d/c home when able, so that he can initiate RT for palliation to bone mets and obstructing EGJ mass.
Has f/u with Dr. Ramos next week; will need to discuss goals of care
Subjective/Objective
Subjective/Objective
c/o thirst, tries ice chips but 'it just comes back up.'
still w/ some bilious drainage around Jtube
Had diarrhea x multiple episodes yesterday w/ miralax and senna.
Vital Signs:
Vital Signs
Temp Pulse Resp BP Pulse Ox
97.8 F 104 16 131/74 95
01/22/25 07:00 01/22/25 07:00 01/22/25 07:00 01/22/25 07:00 01/22/25 07:00
bilious drainage around Jtube site, new dressing placed by RN
abd is distended
Lab Results:
Laboratory Data
WBC 30.4 10^3/uL (4.8-10.8) H 01/22/25 06:36
Hgb 7.9 g/dL (13.0-18.0) L 01/22/25 06:36
Plt Count 363 10^3/uL (130-400) 01/22/25 06:36
eGFR > 60.00 01/22/25 06:36
[2025-01-22 09:49] LABS: Nucleated Red Blood Cells % 0 % (-)
[2025-01-22] MEDS: MIRALAX TUBE (09:53)
[2025-01-22] MEDS: SENOKOT-S TUBE (09:54)
--- NOTE | 2025-01-22 13:26 | W.PN.HOSP.TC ---
Today's Communication/Plan
-
Consult surgery for J tube leakage
Assessment / Plan
Assessment / Plan
#Severe nausea and vomiting Likely secondary to obstruction secondary to esophageal adenocarcinoma progression
#Constipation
CT abd/pelvis showing interval progression of gastroesophageal carcinoma.
Strict NPO. Meds via J tube
mouth swab
Improved
#J-tube malfunction-ongoing leakage noted. Consult general surgery
#Suspected cellulitis versus dermatitis at the J -tube site
Continue with Zosyn.
With leakage issues suspect more dermatitis.
# Leukocyctosis ? tumor related
Trend WBC. Remains afebrile.
Lactic normal
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
On chemotherapy and radiation
Due to start radiation
Follows with [facility] Dr. Ramos
Nutrition evaluation for tube feeding recs-started on tube feeds
Appt oncology input- follow OP for his RTX
#Anemia likely secondary to malignancy
Likely of chronic disease
Hemoglobin 7.6 likely dilutional component. No luminal bleeding noted.
Continue to trend hemoglobin.
Transfuse for hemoglobin less than 7.
#Suspected protein caloric malnutrition of chronic illness
Nutrition eval
DVT prophylaxis with Lovenox
Full code
Anticipated Discharge: 24 - 48 hours
Subjective/Interval History
-
Date of Service: January 22, 2025
Currently no nausea. He cannot swallow because of dysphagia from his cancer.
His main concern is the leaking J-tube. He had J-tube placed the end of last year. Was apparently changed to [address] [facility]. In the last 4 to 5 days he started noticing leakage of G-tube feeds where he has to change his pants
on his shirts. No abdominal pain.
No fever or chills.
Objective Data
-
Labs:
Laboratory Results
01/22/25
06:36
WBC 30.4 H
Hgb 7.9 L
Hct 25.9 L
Plt Count 363
Sodium 141
Potassium 3.8
Chloride 107
Carbon Dioxide 25
BUN 19
Creatinine 0.8
Glucose 171 H
Calcium 8.5
Vital Signs:
Vital Signs
Temp Pulse Resp BP Pulse Ox
97.8 F 104 16 131/74 95
01/22/25 07:00 01/22/25 07:00 01/22/25 07:00 01/22/25 07:00 01/22/25 07:00
I&O
01/21/25 01/22/25 01/23/25
06:59 06:59 06:59
Intake Total 2784 / 2784 1270 / 1270
Balance 2784 / 2784 1270 / 1270
Physical Exam
-
General: Comfortable
Respiratory: Non Labored Respirations; Negative Accessory Resp Muscle Use
Cardiac: Regular Rhythm and S1/S2
GI: Soft and Other (CHRISTOPHER tube noted. Currently getting tube feeds and there is leakage of tube feeds externally)
Neuro: AO x 3
Psych: Calm
Data Reviewed
-
Labs: Labs Reviewed by me
[2025-01-22 15:37] VITALS: BP 117/69
--- NOTE | 2025-01-22 15:59 | CM ---
CM reviewed chart, ADC 1-2 days
Surgery consult for j-tube leakage, pending
Per prior CM notes, pt declined VN
Pt had Jevity tube feeds at home prior to admission
CM will continue to follow for dc planning
Per nursing, pt is independent throughout room
Discharge Disposition- home, follow for needs
--- NOTE | 2025-01-22 16:35 | CON.GS ---
Addendum entered and electronically signed by David Olivera MD 01/22/25 17:43:
Patient seen and examined.
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
approximately 5 weeks ago at [facility]. Mr. Santamaria presents with concerns for abdominal cellulitis and concern for infection around his J-tube. He states that he has had leakage around the tube for the past several days. No significant
nausea or vomiting. Continues to move his bowels. No fevers or chills. On workup imaging with a CT scan his J-tube was noted to be in appropriate position with increased progression of his intra-abdominal disease.
Gen: NAD
Abd: soft, sensitive abdomen and tenderness around J-tube site, distended, non-peritoneal, J-tube with mild bilious staining of the dressing, mild erythema/excoriation of the skin, no palpable fluctuance, actively getting TF, tube slightly loose and
reseated at the skin
Patient is a 70 yo M p/w concern for infection at his J-tube site, increased leakage may be related to progression of disease and increased intra-abdominal pressure
No evidence of infection; erythema is related to excoriation from leakage of bilious contents. Continue with local wound care. Tube was pulled back to create a more tight apposition. Further manipulation (such deflating or inflating the balloon)
or exchange of the tube was not attempted as he is currently getting tube feeds. If leakage persists would hold tube feeds and inflate the balloon some (call surgery and we can assist), risks of upstream obstruction were discussed. If leakage
persists beyond this then would pursue IR or bedside tube exchange to a larger J-tube size. All questions answered.
-- Tube reapposed to the abdominal wall
-- If leakage persists please pause TF and call as we can increase balloon volume some
-- If leakage persists beyond this then would upsize tube
-- Above can be managed as an outpatient here or at his prior hospital where tube was placed
Original Note:
Consultation
-
Date/Time Consultation Requested: 1:30pm, 01/22/25
Date/Time Consultation Performed: 3pm, 01/22/25
Requesting Provider: Forest Connors
Performing Provider: aDvid Olivera
Reason for Consultation: J-tube leak
Medical History
-
Chief Complaint: leaking J tube & surrounding skin irritation
History of Present Illness:
Cricket Santamaria is a 70yo M with a PMH notable for gastroesophageal carcinoma metastatic to shoulder/hips currently being treated w radiation & chemo who presented with n/v and J-tube leakage on 01/18, found to have progression of tumor growth within
abdomen. Surgery consulted to xial for mgmt of J-tube leak.
Patient reports that J-tube was placed in June 2024 and was then replaced about 5 weeks ago at [place]. Unsure if that was to upsize the tube, but it was not due to drainage ('might have just been due for a change'). A few days prior to
presentation on 01/18, the patient began experiencing significant leakage from J-tube with yellowish fluid soaking through clothes multiple times a day. He puts gauze around the tube at home. He has not had leakage like this before since getting the
J-tube. He also developed skin redness and irritation surrounding the tube. Has not been able to keep down anything PO for the past week or so. Denies fever/chills or other new pain. CT a/p this admission demonstrated: 'progression of tumor in the
central and left upper abdomen, which appears to involve the stomach and gastroesophageal junction.'
Past Medical History
Past Medical History: Cancer (gastroesophageal cancer w bone mets)
Past Surgical History: Other (J tube placement 06/2024)
Social History
Tobacco: Non-Smoker
Allergies / Home Medications
Allergy/AdvReac Type Severity Reaction Status Date / Time
No Known Allergies Allergy Verified 01/18/25 08:58
�Medication �Instructions �Recorded �Confirmed �Type
No Meds [No Current Medications] 01/18/25 01/18/25 History
Review of Systems
-
History Source: Patient
Constitutional: Fever (none)
Abdomen/GI: Nausea and Vomiting
Skin: Rash (rash in radius around J-tube insertion site )
A 10 point review of systems was completed, and was negative except as per HPI.
Physical Exam
Vital Signs
Temp Pulse Resp BP Pulse Ox
99.4 F 113 18 117/69 95
01/22/25 15:37 01/22/25 15:37 01/22/25 15:37 01/22/25 15:37 01/22/25 15:56
Body Mass Index (BMI) 21.4
Lab Results
01/22/25 06:36
01/22/25 06:36
WBC 30.4 10^3/uL (4.8-10.8) H 01/22/25 06:36
Hgb 7.9 g/dL (13.0-18.0) L 01/22/25 06:36
Hct 25.9 % (39.0-52.0) L 01/22/25 06:36
Plt Count 363 10^3/uL (130-400) 01/22/25 06:36
Abs Immat Gran (auto) 0.4 10^3/uL (0-0.05) H 01/22/25 06:36
Neutrophils % 88.7 % (42.2-75.2) H 01/22/25 06:36
Physical Exam
HEENT: Normocephalic, Anicteric and Atraumatic
Respiratory: Non Labored Respirations
GI: Soft and Other (J-tube on L abdomen with small erythematous ring around tube entry; gauze around tube with some yellow fluid)
Neuro: Awake, Alert and Oriented
Data Reviewed
-
CT Scan: Image Personally Visualized and interpreted and Report Reviewed by me
Labs: Labs Reviewed by me
Critical Care Time (in minutes): 30
Total Time Spent with Patient (in minutes): 15
Assessment / Plan
-
Patient is a 70yo M with a PMH of gastroesophageal carcinoma metastatic to shoulder/hips (being treated w radiation & chemo), who presented with n/v and J-tube leakage on 01/18, found to have progression of tumor growth within abdomen. Surgery
consulted to eval for mgmt of J-tube leak, assessed at bedside.
Assessment: New increased leakage from J-tube likely 2/2 increased intraabdominal pressure from progression of gastroesophageal carcinoma tumor. Pt may require additional adjustments of tube, must consider increased SBO risk with balloon size
increase; may favor placement of upsized tube instead. Non-urgent for inpatient stay - may do outpatient or inpatient with IR consult, pending discharge planning by primary team.
Plan:
- Adjusted/reapproximated tube at bedside to ensure flush with skin (unable to adjust balloon 2/2 continuous feed)
- If inpt tomorrow, may attempt adjusting inflation of balloon at bedside if feeds are paused & consult IR to discuss upsizing tube
- If discharged tomorrow, patient may see preferred outside provider at [place] or elsewhere to discuss upsizing tube
[2025-01-22] MEDS: LOVENOX 40 MG SC (17:51)
[2025-01-22] MEDS: LR 1000 IV (20:06)
--- NOTE | 2025-01-22 21:40 | W.PN.UPDATE ---
Update Note
Progress Note Update
Patient seen this evening. Patient examined chart reviewed. Asked to review imaging assess patient for possible prophylactic nailing right hip
70-year-old male metastatic esophageal adenocarcinoma admitted for nausea vomiting. MRI did show small likely metastasis in the peritrochanteric/femoral neck region right hip. Patient is really complaining of very little hip pain. Reports is not
really ambulating much noted some intermittent discomfort of the last month but this has not been severe. Based on size of the lesion and lack of significant functional pain, would not recommend prophylactic surgical intervention from an orthopedic
standpoint for right hip metastasis. Certainly would recommend continued protected weightbearing with cane or walker. We did discuss outpatient follow-up with orthopedic oncologist for surveillance as well as further discussion of potential
prophylactic nailing should symptoms worsen. Please reach out questions or concerns.
Formal consult to follow
[2025-01-22 23:24] VITALS: BP 119/75
[2025-01-23 07:14] LABS: Hematocrit 26.5 % (39.0-52.0); Hemoglobin 8.2 g/dL (13.0-18.0); Mean Corp Hgb Conc. 30.9 g/dL (33.0-37.0); Mean Corpuscular Volume 87.7 fL (80.0-94.0); Platelet Count 365 10^3/uL (130-400); Red Cell Dist. Width 17.4 % (11.5-14.5)
[2025-01-23 07:35] VITALS: BP 136/76
[2025-01-23 07:38] LABS: Blood Urea Nitrogen 21 mg/dl (9-20); Calcium 8.8 mg/dl (8.4-10.2); Carbon Dioxide 26 mmol/L (22-30); Chloride 107 mmol/L (98-107); Estimated Creatinine Clearance 79 ml/min; Glucose 101 mg/dl (70-99); Potassium 3.9 mmol/L (3.5-5.1); Sodium 142 mmol/L (135-145); eGFR > 60.00
[2025-01-23] MEDS: PEPCID 20 MG IV (07:56)
[2025-01-23] MEDS: NSS (PRESERVATIVE FREE) 8 ML IV (07:56)
--- NOTE | 2025-01-23 08:15 | W.PN.ONC2 ---
Today's Communication / Plan
-
Tube management and discharge when able. Not too much to add from inpatient care.
Px guarded.
Impression
Impression
metastatic esophageal carcinoma
recurrent gastric mass causing obstruction
mets to right shoulder, right iliac bone, right femoral neck
J tube infection vs skin irritation from leaking bilious drainage
Leukocytosis, likely from malignany
progressive anemia may be multifactorial including infection, abx, malignancy, and GI bleeding
Plan
Plan
Suspect leukocytosis is from aggressive malignancy and j-tube infection is more irritation/inflammatory than infected
Anemia is related to malignancy, no iron def.
d/c home when able, so that he can initiate RT for palliation to bone mets and obstructing EGJ mass.
Has f/u with Dr. Ramos next week; will need to discuss goals of care
Subjective/Objective
Chief Complaint
ACS Heme Onc
Subjective
Surgery repositioned tube yesterday but he says still clogged. Tells me he's going home today. For XRT right shoulder and hip.
Vital Signs:
Vital Signs
Temp Pulse Resp BP Pulse Ox
98.1 F 105 18 136/76 98
01/23/25 07:35 01/23/25 07:35 01/23/25 07:35 01/23/25 07:35 01/23/25 07:35
Lab Results:
Laboratory Data
WBC 29.7 10^3/uL (4.8-10.8) H 01/23/25 06:16
Hgb 8.2 g/dL (13.0-18.0) L 01/23/25 06:16
Plt Count 365 10^3/uL (130-400) 01/23/25 06:16
eGFR > 60.00 01/23/25 06:16
Physical Exam
HEENT: No Jaundice
Cardiology: S1 and S2
Pulmonary: Clear
GI: Soft
[2025-01-23] MEDS: LR 1000 IV (10:20)
--- NOTE | 2025-01-23 10:20 | W.PN.GS2 ---
Today's Communication / Plan
-
Plan:
- Wound care team to advise around barrier ointments, bandages to avoid skin irritation from further J-tube leakage
- Consider IR consult to clear current tube blockage
- Surgery signed off
Assessment / Plan
-
Patient is a 70yo M with a hx of metastatic gastroesophageal carcinoma, now with intraabdominal progression, seen by surgery for eval of leaking J-tube, now with blockage.
No surgical intervention indicated at this point in time to address leakage. Cannot adjust balloon while managing drain blockage; balloon further inflation also increases risk of obstruction. Leakage likely unavoidable 2/2 process of J-tube
placement and close approximation of bowel to abd wall, also with increased intra-abdominal pressure 2/2 tumor and widening of tube insertion site over time. Recommend improved mgmt of skin irritation from leaking fluid & containment of fluid
through wound care consult.
Plan:
- Wound care team to advise around barrier ointments, bandages to avoid skin irritation from further J-tube leakage
- Consider IR consult to clear current tube blockage
- Surgery signed off
Time Spent
Total Time Spent with Patient (in minutes): 10
Subjective Data
-
Date of Service: January 23, 2025
Pt unhappy with state of J-tube. Last night it became clogged so feeds have been held overnight.
Objective Data
-
Intake and Output
01/22/25 01/23/25 01/24/25
06:59 06:59 06:59
Intake Total 1270 / 1270
Balance 1270 / 1270
Intake:
Oral fluids 0 / 0
IV piggybacks 100 / 100
Tube feeding 870 / 870
Feeding tube flush amount 300 / 300
Other:
Number of approximated MODERATE 2 2
amounts of urine
Vital Signs
Temp Pulse Resp BP Pulse Ox
98.1 F 105 18 136/76 98
01/23/25 07:35 01/23/25 07:35 01/23/25 07:35 01/23/25 07:35 01/23/25 09:54
Lab Results
01/23/25 06:16
01/23/25 06:16
Calcium 8.8 mg/dl (8.4-10.2) 01/23/25 06:16
Phosphorus 4.1 mg/dl (2.5-4.5) 01/21/25 06:04
Magnesium 2.4 mg/dl (1.6-2.3) H 01/21/25 06:04
Total Bilirubin 0.6 mg/dl (0.2-1.3) 01/21/25 06:04
Direct Bilirubin 0.3 mg/dl (0.0-0.4) 01/21/25 06:04
AST 28 U/L (17-59) 01/21/25 06:04
ALT 39 U/L (0-50) 01/21/25 06:04
Alkaline Phosphatase 152 U/L (38-126) H 01/21/25 06:04
Total Protein 6.2 g/dl (6.3-8.2) L 01/21/25 06:04
Albumin 3.0 g/dl (3.5-5.0) L 01/21/25 06:04
Physical Exam
-
General: sitting up in bed, alert
Cardiopulm: non-labored breathing
Abdomen: J-tube site with clean gauze that was changed by team at bedside yesterday; no new yellow drainage on bandaging; no extension of erythema surrounding tube insertion site; abd non-tender
Patient has a aguilar catheter: No
Patient has a central line: No
--- NOTE | 2025-01-23 11:53 | CON.ORTHO ---
Consultation
-
Date/Time Consultation Performed: 01/22/2025 830 PM
Consultation - Orthopedics
History
HPI: 70-year-old male history of esophageal adenocarcinoma presented to the emergency department complaints of nausea vomiting. Ultimately admitted to the medical service. Patient underwent imaging while hospitalized the MRI was concerning for
metastatic lesion right peritrochanteric region. Orthopedics was consulted for comment of potential prophylactic fixation. This evening patient reports very little pain in the right groin. He notes that over the last month he has had some
intermittent right groin pain but feels as though this has not been severe. He reports that he really has not been getting around too much however. He reports that he is receiving most of his cancer treatment through [facility].
Allergies / Home Medications
Past medical history: Esophageal adenocarcinoma
Past surgical history G-tube placement
Family history: Not pertinent
Social history: Non-smoker
Allergy/AdvReac Type Severity Reaction Status Date / Time
No Known Allergies Allergy Verified 01/18/25 08:58
�Medication �Instructions �Recorded
No Meds [No Current Medications] 01/18/25
Vital Signs / Lab Results
Temp Pulse Resp BP Pulse Ox
98.1 F 105 18 136/76 98
01/23/25 07:35 01/23/25 07:35 01/23/25 07:35 01/23/25 07:35 01/23/25 09:54
01/23/25 06:16
01/23/25 06:16
10 point review systems reviewed and negative unless otherwise stated
General: Pleasant, no acute distress at rest,
Musculoskeletal right lower extremity
Skin intact, no erythema or ecchymotic staining
Negative logroll
Of very minimal to no tenderness palpation over groin or lateral trochanteric flare
There is significant weakness with resisted hip flexion and straight leg raise
No palpable ipsilateral knee effusion
Positive EHL, FHL, ankle dorsiflexion, plantarflexion brisk cap refill distally
Diagnostic studies
CT scan pelvis x-rays right hip as well as MRI right hip independently viewed by myself. Radiology report was reviewed. There is evidence of expansile lesion right ilium as well as much smaller lesion peritrochanteric region. Very difficult to
visualize any lesion on plain radiographs or CT scan.
Assessment / Plan
70-year-old male history of esophageal adenocarcinoma reportedly guarded prognosis with likely metastatic lesion to right peritrochanteric region. I did have a long detail discussion the patient regarding diagnosis and treatment options at length.
He has very little functional pain. There is no evidence of large lytic lesion on plain radiographs. The lesion on MRI would estimate to be about a third of the width of the peritrochanteric region. I would not recommend any acute prophylactic
fixation. Certainly if patient is experiencing any functional pain, would recommend ambulation with the aid of a cane or walker. We did discuss following up on outpatient basis with orthopedic oncologist for further discussion and monitoring of
his symptoms. Certainly if lesion were to progress or patient's symptoms were to significantly worsen, could consider prophylactic fixation although this would be a discussion with orthopedic oncologist. This was explained in detail to the patient
he stated his understanding. Please reach out any questions or concerns.
--- NOTE | 2025-01-23 13:43 | W.PN.HOSP.TC ---
Today's Communication/Plan
-
IR consult for declogging
Resume tube feeds and once he tolerates tube feeds can be discharged later today
Assessment / Plan
Assessment / Plan
#Severe nausea and vomiting Likely secondary to obstruction secondary to esophageal adenocarcinoma progression
#Constipation
CT abd/pelvis showing interval progression of gastroesophageal carcinoma.
Strict NPO. Meds via J tube
mouth swab
Improved
#J-tube malfunction-ongoing leakage noted. Appreciate general surgery input. Tube was repositioned yesterday but unfortunately has clogging now. Discussed with general surgery who recommends IR for declotting. IR consult placed.
#Suspected more dermatitis at the J -tube site then cellulitis
DC antibiotics
With leakage issues suspect more dermatitis.
# Leukocyctosis ? tumor related
Trend WBC. Remains afebrile.
Lactic normal
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
On chemotherapy and radiation
Due to start radiation
Follows with [facility] Dr. Ramos
Nutrition evaluation for tube feeding recs-started on tube feeds
Appt oncology input- follow OP for his RTX
#Anemia likely secondary to malignancy
Likely of chronic disease
Hemoglobin 7.6 likely dilutional component. No luminal bleeding noted.
Continue to trend hemoglobin.
Transfuse for hemoglobin less than 7.
#Suspected protein caloric malnutrition of chronic illness
Nutrition eval
DVT prophylaxis with Lovenox
Full code
Patient is a chemotherapy session and possibly radiation treatment tomorrow. Will try to declog the J-tube and depending we will plan to discharge.
Anticipated Discharge: Today
Subjective/Interval History
-
Date of Service: January 23, 2025
Patient NG tube clamped last night and since then off of tube feeds.
Denies any fever or chills.
Denies any nausea vomiting or abdominal pain.
Denies any shortness of breath
Objective Data
-
Labs:
Laboratory Results
01/23/25
06:16
WBC 29.7 H
Hgb 8.2 L
Hct 26.5 L
Plt Count 365
Sodium 142
Potassium 3.9
Chloride 107
Carbon Dioxide 26
BUN 21 H
Creatinine 0.8
Glucose 101 H
Calcium 8.8
Vital Signs:
Vital Signs
Temp Pulse Resp BP Pulse Ox
98.1 F 105 18 136/76 98
01/23/25 07:35 01/23/25 07:35 01/23/25 07:35 01/23/25 07:35 01/23/25 09:54
I&O
01/22/25 01/23/25 01/24/25
06:59 06:59 06:59
Intake Total 1270 / 1270
Balance 1270 / 1270
Physical Exam
-
General: Comfortable
Respiratory: Non Labored Respirations; Negative Accessory Resp Muscle Use
Cardiac: Regular Rhythm and S1/S2
GI: Soft, Nontender and Peg Tube (J TUBE)
Neuro: AO x 3
Psych: Calm
Data Reviewed
-
Labs: Labs Reviewed by me
--- NOTE | 2025-01-23 14:22 | PN.IRAD.UPD ---
Update Note - IRAD
- -
IR consulted to evaluate J tube. Tube was able to be de-clogged bedside in IRAD and flushed with no issue.
[2025-01-23 15:50] VITALS: BP 135/75
--- NOTE | 2025-01-23 16:22 | CM ---
Spoke with patient who stated that he is agreeable to his discharge. Reviewed IMM. He had questions before he signed: How will he take his ABX once he returns home. Will he continue to get IV fluids. Spoke with RN who spoke with attending. Patient
will return home with no ABX or fluids just jevity. Patient stated that he would prefer to have a VN as this is the case and chose . Referral put in. 4e microfilm duplicating unit supervisor updated as well.
Plan: Case management will continue to follow and assist with discharge planning. Home with VN.
[2025-01-23] MEDS: LOVENOX 40 MG SC (18:02)
== END 2025-01-23 18:56 | disposition home or self-care (01) | DRG 375 ==
LOC: 4 EAST ACU 13:37
PROVIDERS: ADMITTING PHYSICIAN Hospitalist; ATTENDING PHYSICIAN Internal Medicine; CONSULT PHYSICIAN Internal Medicine Hematology & Oncology; CONSULT PHYSICIAN Orthopaedic Surgery; CONSULT PHYSICIAN Surgery; EMERGENCY PHYSICIAN Emergency Medicine; FAMILY PHYSICIAN Family Medicine
DX: C15.9 Malignant neoplasm of esophagus, unspecified (principal); E46 Unspecified protein-calorie malnutrition; L03.311 Cellulitis of abdominal wall; D63.0 Anemia in neoplastic disease; E86.0 Dehydration; Z85.01 Personal history of malignant neoplasm of esophagus; L30.9 Dermatitis, unspecified; K59.00 Constipation, unspecified; Z68.21 Body mass index [BMI] 21.0-21.9, adult
CPT/HCPCS: 73552; 73723; 74022; 74177; 80048; 80053; 82248; 82607; 82728; 82746; 83540; 83550; 83605; 83735; 84100; 85025; 85027; 87040; 96360; 99284; A9575; Q9967

== ENCOUNTER → 2025-01-30 12:04 | Outpatient (REF) | payer MEDICARE, SELFPAY ==
[2025-01-30 12:17] LABS: Hematocrit 22.5 % (39.0-52.0); Hemoglobin 7.0 g/dL (13.0-18.0); Mean Corp Hgb Conc. 31.1 g/dL (33.0-37.0); Mean Corpuscular Volume 84.6 fL (80.0-94.0); Nucleated Red Blood Cells % 0 % (-); Platelet Count 320 10^3/uL (130-400); Red Cell Dist. Width 17.6 % (11.5-14.5)
[2025-01-30 13:09] LABS: ALT (SGPT) 22 U/L (0-50); AST (SGOT) 24 U/L (17-59); Albumin 3.0 g/dl (3.5-5.0); Alkaline Phosphatase 123 U/L (38-126); Blood Urea Nitrogen 20 mg/dl (9-20); Calcium 8.7 mg/dl (8.4-10.2); Carbon Dioxide 26 mmol/L (22-30); Chloride 102 mmol/L (98-107); Glucose 98 mg/dl (70-99); Potassium 4.4 mmol/L (3.5-5.1); Sodium 133 mmol/L (135-145); Total Protein 6.0 g/dl (6.3-8.2); eGFR > 60.00
== END ==
LOC: OLAB 12:04
PROVIDERS: ATTENDING PHYSICIAN Family Medicine; REFERRING PHYSICIAN Internal Medicine Hematology & Oncology
DX: C79.70 Secondary malignant neoplasm of unspecified adrenal gland (principal)
CPT/HCPCS: 80053; 85025

== ENCOUNTER 2025-02-04 10:06 | Outpatient (RCR) | payer MEDICARE, SELFPAY ==
[2025-02-01 08:35] VITALS: BP 116/57
[2025-02-01 09:00] VITALS: BP 116/57
[2025-02-01 09:17] VITALS: BP 109/58
[2025-02-01 11:01] VITALS: BP 111/62
[2025-02-04 10:30] VITALS: BP 111/64
[2025-02-04 12:08] VITALS: BP 111/64
[2025-02-04 12:26] VITALS: BP 117/61
[2025-02-04 13:53] VITALS: BP 125/65
== END 2025-02-14 23:59 | disposition home or self-care (01) ==
LOC: OID 10:06
PROVIDERS: ATTENDING PHYSICIAN Internal Medicine Hematology & Oncology
DX: C15.5 Malignant neoplasm of lower third of esophagus (principal)
CPT/HCPCS: 36415; 36430; 86850; 86900; 86901; 86920; P9016

== ENCOUNTER → 2025-02-06 14:43 | Outpatient (REF) | payer MEDICARE, SELFPAY ==
[2025-02-06 14:55] LABS: Hematocrit 28.3 % (39.0-52.0); Hemoglobin 9.0 g/dL (13.0-18.0); Mean Corp Hgb Conc. 31.8 g/dL (33.0-37.0); Mean Corpuscular Volume 86.8 fL (80.0-94.0); Platelet Count 296 10^3/uL (130-400); Red Cell Dist. Width 18.6 % (11.5-14.5)
[2025-02-06 15:12] LABS: Nucleated Red Blood Cells % 0 % (-)
[2025-02-06 15:14] LABS: ALT (SGPT) 14 U/L (0-50); AST (SGOT) 21 U/L (17-59); Albumin 3.2 g/dl (3.5-5.0); Alkaline Phosphatase 128 U/L (38-126); Blood Urea Nitrogen 20 mg/dl (9-20); Calcium 8.9 mg/dl (8.4-10.2); Carbon Dioxide 27 mmol/L (22-30); Chloride 99 mmol/L (98-107); Glucose 106 mg/dl (70-99); Potassium 4.4 mmol/L (3.5-5.1); Sodium 133 mmol/L (135-145); Total Protein 6.1 g/dl (6.3-8.2); eGFR > 60.00
== END ==
LOC: OLAB 14:43
PROVIDERS: ATTENDING PHYSICIAN Internal Medicine Hematology & Oncology; FAMILY PHYSICIAN Family Medicine
DX: C79.70 Secondary malignant neoplasm of unspecified adrenal gland (principal)
CPT/HCPCS: 80053; 85025

== ENCOUNTER 2025-02-12 16:54 | Inpatient (IN) | payer MEDICARE, SELFPAY ==
[2025-02-12 12:53] VITALS: BP 106/64
[2025-02-12 13:18] LABS: Hematocrit 27.3 % (39.0-52.0); Hemoglobin 8.9 g/dL (13.0-18.0); Mean Corp Hgb Conc. 32.6 g/dL (33.0-37.0); Mean Corpuscular Volume 84.8 fL (80.0-94.0); Platelet Count 195 10^3/uL (130-400); Red Cell Dist. Width 20.3 % (11.5-14.5)
[2025-02-12 13:40] LABS: ALT (SGPT) 15 U/L (0-50); AST (SGOT) 21 U/L (17-59); Albumin 3.3 g/dl (3.5-5.0); Alkaline Phosphatase 108 U/L (38-126); Blood Urea Nitrogen 20 mg/dl (9-20); Calcium 8.8 mg/dl (8.4-10.2); Carbon Dioxide 24 mmol/L (22-30); Chloride 98 mmol/L (98-107); Glucose 147 mg/dl (70-99); Potassium 4.3 mmol/L (3.5-5.1); Sodium 128 mmol/L (135-145); Total Protein 6.2 g/dl (6.3-8.2); eGFR > 60.00
[2025-02-12 14:14] LABS: Nucleated Red Blood Cells % 0 % (-)
--- NOTE | 2025-02-12 15:30 | ED.GENMED ---
History of Present Illness
General
Chief Complaint: Catheter/Tube Problem
Source: patient
Exam Limitations: none
Time Seen by Provider: 02/12/25 15:16
Nursing documentation reviewed up to this point in time: agreed with
History of Present Illness
History of Present Illness:
Patient with history of esophageal cancer with metastasis to his stomach, fed exclusively via J-tube, presents to ED secondary to increased lethargy and weakness noted by his brother, along with increased drainage around his J-tube site over the
past 1 week. Denies fever or chills. Denies diarrhea. Patient who is supposed to also administer water between feeding, admits that he may not have been administering water as directed. Patient also does report intermittent vomiting episodes
when drinking water orally.
Past History
Past History
ED Past Medical History: Cancer (Esophageal)
ED Past Surgical History: Other (J-tube)
Review of Systems
Review of Systems
Allergies reviewed?: Yes
All Other Systems: ROS reviewed and negative except as documented in HPI and ROS
Constitutional: Reports no symptoms; Denies fever
Cardiac: Reports no symptoms
ABD/GI: Reports nausea and vomiting; Denies abdominal pain
: Reports no symptoms
Musculoskeletal: Reports no symptoms
Neurological: Reports no symptoms
Phy Exam
Physical Exam
Physical Exam:
Physical Exam
General: mild distress, not acutely ill. afebrile
Head: nc/at. eomi
Neck: supple. no meningeal signs.
Heart: tachycardic
Lungs: no acute respiratory distress. clear bilaterally
Abdomen: normal bowel sounds. not tender. J-tube in place over LUQ with minimal surrounding erythema
Neuro: alert and oriented x 3. no focal neurological deficits
Skin: no rash
Psychiatric: well kept. interactive and cooperative
Extremities: no edema. no calf tenderness.
Course
Orders/Labs/Results
Orders:
Orders
02/12/25 13:02
Complete Blood Count/With Diff Urgent
Comprehensive Metabolic Panel Urgent
Lactic Acid Urgent
Serum Osmolality Urgent
Comment: SERUM OSM ADDED ON BY FLOOR 3:30PM 02-12-25
02/12/25 Dinner
NPO
Allow oral meds: No
Allow clear liquids: No
02/12/25 15:30
0.9% Sodium Chloride 500 ml [Nss] 500 ml IV BOLUS
02/12/25 15:31
Add On- LAB Urgent
Tests Added?: serum osm
Osmolality, Random Urine Urgent
Urinalysis Reflex To Culture Urgent
Urine Sodium Urgent
02/12/25 16:35
Admit/Transfer Patient As Directed
Co-Sign Provider:
Level of Care: Inpatient admission
Assign to:: Medical/Surgical
Physician / Group: Hospitalist
Diagnosis: Cellulitis at J-Tube site, Hyponatremia
Reason for Hospitalization: as above
Expected length of stay greater than two midnights?: Yes
ELOS- Estimated Length of Stay in days: 3
I certify the patient meets the requirements for IP care: Yes
PRN Pain Medication Management As Directed
May give lesser potent ordered pain med per pt: Yes
preference::
Protocol:: Medication orders for pain may be administered in a
manner that supports deferring to patient preference
when the pt is:
- Requesting an ordered lesser potent pain medication.
Least to most potent pain medications are defined
as: acetaminophen < NSAID < tramadol < opioids
(morphine, oxycodone, hydromorphone).
- Requesting a lesser dose of the same medication IF
ORDERED.
- Requesting a less intrusive route of administration
if both routes are prescribed by the provider (PO <
IV).
02/12/25 16:37
Code Status As Directed
Resuscitation Status: Full Code
02/12/25 19:01
0.9% Sodium Chloride 1000 ml [Nss] 1,000 ml IV 100 mls/hr
Enoxaparin Sodium [Lovenox] 40 mg SC QPM
Morphine Sulfate 2 mg IV Q4HPRN PRN
02/12/25 19:01
Consult Interventional Radiology [IRAD CONSULT] Routine
Consulting Provider: Garrett Ramirez
Was physician already notified: Yes
Procedure being ordered, including laterality if applicable: J Tube Malfunction/tube blockage
Acknowledgement that appropriate orders are entered: Yes
Nutrition IP Consult [DIETARY IP CONSULT] Routine
Reason for Consult: Tube feeds
Wound/Abscess/Other Culture Routine
VINAYAK Source: Abdomen
Specimen Description:
Comment: site of J Tube
Activity As Directed
Activity Level: As Tolerated
Vital Signs As Directed
Frequency: Per unit guidelines
DX Deep Vein Thrombosis Video Routine
02/13/25 06:00
Basic Metabolic Panel IN AM
Complete Blood Count/With Diff IN AM
Abnormal Lab Results
02/12/25
13:02
WBC 12.4 H 10^3/uL
(4.8-10.8)
RBC 3.22 L 10^6/uL
(4.70-6.10)
Hgb 8.9 L g/dL
(13.0-18.0)
Hct 27.3 L %
(39.0-52.0)
MCHC 32.6 L g/dL
(33.0-37.0)
RDW 20.3 H %
(11.5-14.5)
Abs Immat Gran (auto) 0.9 H 10^3/uL
(0-0.05)
Absolute Neuts (auto) 10.9 H 10^3/uL
(1.4-6.5)
Absolute Lymphs (auto) 0.1 L 10^3/uL
(1.2-3.4)
Immature Gran % 7.3 H %
(0-0.5)
Neutrophils % 87.7 H %
(42.2-75.2)
Lymphocytes % 0.7 L %
(20.5-51.1)
Sodium 128 L mmol/L
(135-145)
Creatinine 0.6 L mg/dL
(0.7-1.3)
Glucose 147 H mg/dl
(70-99)
Serum Osmolality 274 L mOsm/kg
(275-300)
Total Protein 6.2 L g/dl
(6.3-8.2)
Albumin 3.3 L g/dl
(3.5-5.0)
02/12/25 13:02
02/12/25 13:02
Vital Signs
Initial and Last Documented VS:
Initial Vital Signs
Temp Pulse Resp BP Pulse Ox
99.6 F 128 16 106/64 98
02/12/25 12:53 02/12/25 12:53 02/12/25 12:53 02/12/25 12:53 02/12/25 12:53
Last Documented Vital Signs
Temp Pulse Resp BP Pulse Ox
98.5 F 109 16 120/70 96
02/12/25 19:02 02/12/25 19:02 02/12/25 19:02 02/12/25 19:02 02/12/25 19:02
MDM/Problems Addressed
MDM/Problems Addressed:
History, exam, and blood work consistent with hyponatremia secondary to dehydration, which may be contributing to patient's increased lethargy and confusion noted by staff member. In light of potential need for J-tube evaluation and replacement,
patient will be admitted for further evaluation and treatment, including continue IV hydration with potential IR consultation.
*Pulse Oximetry
SaO2: 98
Oxygen Mode of Delivery: Room air
Patient hypoxic: no
*Critical Care Note
Total Time (30-74mins, 75-104mins- exclusive of procedures): Not Applicable
ED Attending Note
-
Portions of this chart may have been created with voice recognition software.� Occasional wrong word or��sound alike� substitutions may have occurred due to the inherent limitations of voice recognition software.
Discharge Plan
Departure
Patient Disposition: Admit
Date of Disposition: 02/12/25
Time of Disposition: 15:33
Admit to: Med/Surg
Presentation/result/management discussed w/ accepting MD/DO: Hospitalist
Discharge Problem:
Hyponatremia, Dehydration, Jejunostomy tube leak
Interventions
Interventions:
*ED COVID-19 Vaccine History Last Done: 02/12/25 21:06
*Nursing Disposition Last Done: 02/12/25 18:20
RE-Satkmv-Xvvzursulv Assessment Last Done: 02/12/25 15:40
ED-Male Genitourinary Assessment Last Done: 02/12/25 15:40
Discharge Date and Time
Discharge Date/Time: 02/12/25 18:22
[2025-02-12 15:39] VITALS: BMI 21.9
[2025-02-12] MEDS: NSS 500 IV (15:39)
--- NOTE | 2025-02-12 15:52 | HPS.HSE ---
Addendum entered and electronically signed by Priti Wang MD 02/12/25 17:09:
This is an addendum to the H&P written by Sulema Brower on 02/12/2025. Patient seen and examined independently with resident.
70-year-old male past medical history of esophageal adenocarcinoma with J-tube, metastases to stomach, chemotherapy and radiation, anemia of chronic disease, presenting with and weakness and increased drainage around J-tube site over the past week
with irritation of the skin around. Also ongoing abdominal distention but denies pain. No fevers or chills. No diarrhea. No vomiting.
Vital signs show heart rate 128. On examination very distended but no focal tenderness.
Labs show sodium of 128. Leukocytosis 12. Hemoglobin of 8.9.
Patient with recurrent J-tube malfunction with ongoing leakage and subsequent dermatitis around the J-tube site rather than cellulitis.
NPO. IV fluids. IR consulted for exchange of J-tube. Check abdominal x-ray to rule out bowel obstruction. Zosyn for dermatitis/cellulitis around J-tube site. Nutrition consulted.
Original Note:
Family Physician
-
Family Physician: RAFIQ RAINES MD
Chief Complaint
-
Fatigue
History of Present Illness
This is a 70-year-old male with past medical history of metastatic esophageal carcinoma s/p chemo and radiation and s/p J-tube placement 06/2024, which was recently exchanged 2 months ago at [facility] presents to [facility] with J Tube malfunction and fatigue.
Patient reports erythema and yellow discharge around J-tube site ongoing for the past week. Patient was previously admitted for recurrent J-tube malfunction 1 month ago. At bedside, reports fatigue. States he has been feeling weak which he
considers as generalized and chronic. He last had a bowel movement yesterday. He denies lightheadedness and dizziness. States he gets tube feeds at nighttime with most recent feeds yesterday night. He denies fever, chills. Pertinent to his
history, he has a history of metastatic esophageal carcinoma and follows Dr. Ramos at [facility]. Patient states he was recently started on chemotherapy and radiation 3 weeks ago. At bedside, he is oriented to place person and time.
Upon presentation to the ED, vitals with BP 106/64, pulse 128, respiratory rate 16, temperature 99.6, O2 sat 98% on room air. Laboratory showed WBC 12.4, hemoglobin 8.9, platelet 194. Na 128, otherwise electrolytes unremarkable
Medical History
Past Medical History
Past Medical History: Reports Other (Esophageal adenocarcinoma, J-tube)
Past Surgical History: Reports Other (Jejunostomy 06/2024)
Social History
Tobacco: Non-smoker
Alcohol: Former
Drug: None
Family History
Family History: Not pertinent
Allergies / Home Medications
Allergies reflects when Allergies were last updated in [facility].
Home Medications with original date entered in [facility]
Allergy/Medication List:
Allergies
Allergy/AdvReac Type Severity Reaction Status Date / Time
No Known Allergies Allergy Verified 02/12/25 12:55
Home Medications
morphine concentrate 100 mg/5 mL (20 mg/mL) oral solution 10 mg PO Q4HPRN PRN severe pains 02/12/25
Review of Systems
-
History Source: Patient
A 12 point ROS was completed and negative except as noted: Yes
Constitutional: Reports See HPI
EENT: Reports See HPI
Respiratory: Reports No Symptoms
Cardiac: Reports No Symptoms
Abdomen/GI: Reports See HPI
: Denies Dysuria, Frequency, Flank Pain or Incontinence
Physical Exam
Vital Signs
Vital Signs
Temp Pulse Resp BP Pulse Ox
99.6 F 128 16 106/64 98
02/12/25 12:53 02/12/25 12:53 02/12/25 12:53 02/12/25 12:53 02/12/25 15:31
Physical Exam
General: Well Developed and No Apparent Distress
HEENT: NormoCephalic
Respiratory: Clear
Cardiac: S1/S2, Regular Rhythm and Tachycardia
GI: Soft, Tender (On palpation), Distended and Peg Tube (Erythema around J-tube site)
Musculoskeletal: No Edema
Skin: Dry
Neuro: Awake, Alert, Oriented and AO x 3
Psych: Calm
Laboratory Results
-
02/12/25 13:02
02/12/25 13:02
Laboratory Results
Lactic Acid 1.7 mmol/L (0.7-2.0) 02/12/25 13:02
Total Bilirubin 1.3 mg/dl (0.2-1.3) 02/12/25 13:02
AST 21 U/L (17-59) 02/12/25 13:02
ALT 15 U/L (0-50) 02/12/25 13:02
Alkaline Phosphatase 108 U/L (38-126) 02/12/25 13:02
Impression/Plan
-
Assessment/plan
#Suspected Cellulitis and malfunction at the J-tube site with ongoing leakage noted
-SIRS 2 out of 4 met on admission HR>90. WBC >12
-IV fluids
-Keep NPO
-Antibiotics with Zosyn for coverage of cellulitis around J tube site
-Wound culture
-Wound care
-IR consulted for exchange of J tube
-Nutrition consulted
-check Abd Xray to r/o obstruction
#Hypovolemic hyponatremia
-Check urine studies
-IV fluids normal saline
-Monitor BMP
#Anemia likely anemia of chronic disease secondary to malignancy
-Trend CBC
-Transfuse hemoglobin less than 7
#Esophageal adenocarcinoma with metastasis
-On chemotherapy and radiation
-Follows [facility] Dr. Ramos
DVT prophylaxis Lovenox
CODE STATUS full code
--- NOTE | 2025-02-12 17:10 | CM ---
CM reviewed chart. Pt lives alone, 2 story home, 2 RED. Independent in ADLs, personal care and ambulation at baseline. Still drives.
Has J tube, Jevity tube feeds supplied by [employer].
Current with VN since recent admission in early January. No hx SNF.
PCP: Addis Pleitez
Pharmacy: [facility]
Anticipate discharge home, watch for needs
--- NOTE | 2025-02-12 18:54 | PTCARENOTE ---
Patient arrived to unit from ED with J tube leaking yellow-orange liquid. It was all over his underwear, stomach, pads underneath him. RN had pt remove soiled garments, cleansed around j tube site which was pink/red. Sterile 4x4 gauze, abd pads and
tape were applied around site. Pt's stomach is distended. Pt tells nurse that his last chemo/radiation was on Thursday 02/08.
[2025-02-12 19:02] VITALS: BP 120/70
[2025-02-12] MEDS: LOVENOX 40 MG SC (20:47)
[2025-02-12] MEDS: NSS 1000 IV (20:47)
[2025-02-12] MEDS: ZOSYN 50 IV (20:55)
[2025-02-12 23:34] VITALS: BP 111/60
[2025-02-13] VITALS (8 sets, daily range): BP systolic 101–127; BP diastolic 52–66; PULSE 94; O2SAT 96; BMI 21.9
[2025-02-13] MEDS: ZOSYN 50 IV ×4 (02:20→20:11)
--- NOTE | 2025-02-13 06:16 | PTCARENOTE ---
Pt having some diarrhea overnight, inc at times. Pt assisted to ambulate to bathroom with walker, standby assist, pt stable on feet. [facility] bath provided this am. J tube dressing saturated, new dressing now in place. IVF infusing as ordered. Pt denies
any complaints of pain. Pt now resting comfortably. Will continue to monitor.
[2025-02-13] MEDS: NSS 1000 IV (08:18)
--- NOTE | 2025-02-13 08:18 | VNURNOTE ---
Chart reviewed. Patient is current with [facility]. Will continue to follow hospital course and DC plans.
[2025-02-13 09:08] LABS: Blood Urea Nitrogen 19 mg/dl (9-20); Calcium 8.0 mg/dl (8.4-10.2); Carbon Dioxide 21 mmol/L (22-30); Chloride 104 mmol/L (98-107); Estimated Creatinine Clearance 107 ml/min; Glucose 103 mg/dl (70-99); Potassium 3.8 mmol/L (3.5-5.1); Sodium 131 mmol/L (135-145); eGFR > 60.00
[2025-02-13 09:27] LABS: Hematocrit 21.0 % (39.0-52.0); Hemoglobin 7.0 g/dL (13.0-18.0); Mean Corp Hgb Conc. 33.3 g/dL (33.0-37.0); Mean Corpuscular Volume 84.7 fL (80.0-94.0); Nucleated Red Blood Cells % 0 % (-); Platelet Count 136 10^3/uL (130-400); Red Cell Dist. Width 20.2 % (11.5-14.5)
--- NOTE | 2025-02-13 09:35 | CON.ONC ---
Consultation
-
Date Consultation Requested: 02/13/25
Date Consultation Performed: 02/13/25
Requesting Provider: Inocente
Performing Provider: Marina
Reason for Consultation: Gastric Ca
Impression
Impression
J-tube malfunction with ongoing leakage and cutaneous erythema noted
Esophageal adenocarcinoma with metastasis
Plan
Plan
For IR consult to investigate or potentially replace J- tube over a wire.
Antibiotic therapy with erythema and possible cellulitis around J tube site.
Zosyn started.
Counts adequate. Low WBC mikes infection less likely but will follow.
Resume XRT and chemotherapy post discharge.
Patient History
History of Present Illness
CC: Fatigue
HPI: 70-year-old male with metastatic gastric GE junction carcinoma and s/p J-tube placement 06/2024, presents to with J Tube malfunction and fatigue. He completed the planned 4 cycles of neoadjuvant FLOT. Unfortunately his PET CT scan in
preparation for surgical intervention showed a lytic lesion in the right shoulder not previously described. He is currently receiving radiation therapy with concurrent carbo taxol to what is now an unresectable primary as well as multiple sites of
metastatic disease having progressed on FLOT chemotherapy.
Patient presented to ER secondary to increased lethargy and weakness noted by his brother, along with increased drainage around his J-tube site over the past 1 week. Denies fever or chills. Denies diarrhea. Patient was previously admitted for
recurrent J-tube malfunction 1 month ago. IR consulted for exchange of J-tube.
Past-Medical/Surgical History
PMH: Esophageal (GE junction) adenocarcinoma, J-tube
Past Surgical History: Reports Other (Jejunostomy 06/2024)
Social History
Tobacco: Non-smoker
Alcohol: Former
Drug: None
Family History
Family History: Not pertinent
Allergies / Home Medications
Patient Medication
�Medication �Instructions �Recorded �Confirmed �Last Taken �Type
morphine concentrate 100 mg/5 mL 10 mg PO Q4HPRN PRN severe pains 02/12/25 02/12/25 Unknown History
(20 mg/mL) oral solution
Active Medications
Generic Name Dose Route Start Last Admin
Trade Name Freq PRN Reason Stop Dose Admin
Enoxaparin Sodium 40 mg 02/12/25 19:01 02/12/25 20:47
Enoxaparin Sodium 40 Mg/0.4 Ml Syringe SC 03/12/25 19:00 40 mg
QPM JUAN MANUEL Administration
Sodium Chloride 1,000 mls @ 100 mls/hr 02/12/25 19:01 02/13/25 08:18
Nss IV 1,000 mls
.Q10H JUAN MANUEL Administration
Piperacillin Sod/Tazobactam Sod 3.375 gram in 50 mls @ 100 mls/hr 02/12/25 20:00 02/13/25 08:17
Zosyn IV 50 mls
Q6H JUAN MANUEL Administration
Morphine Sulfate 2 mg 02/12/25 19:01
Morphine 2 Mg/Ml Syringe IV 02/26/25 19:00
Q4HPRN PRN
moderate pain
Sodium Chloride 0 flush 02/12/25 20:00
Sodium Chloride 0.9% (Flush) Syringe IV 03/12/25 19:59
PER PROTOCOL JUAN MANUEL
Physical Exam
-
General: Well Developed, Well Nourished and No Apparent Distress
HEENT: Negative Jaundice
Cardiology: S1 and S2
Pulmonary: Clear
GI: Soft and Other (J-tube with erythema around site.)
Extremities: No C/C/E
Labs
Lab Results
WBC 10.1 10^3/uL (4.8-10.8) 02/13/25 08:03
RBC 2.48 10^6/uL (4.70-6.10) L 02/13/25 08:03
Hgb 7.0 g/dL (13.0-18.0) L D 02/13/25 08:03
Hct 21.0 % (39.0-52.0) L 02/13/25 08:03
MCV 84.7 fL (80.0-94.0) 02/13/25 08:03
MCH 28.2 pg (27.0-31.0) 02/13/25 08:03
MCHC 33.3 g/dL (33.0-37.0) 02/13/25 08:03
RDW 20.2 % (11.5-14.5) H 02/13/25 08:03
Plt Count 136 10^3/uL (130-400) D 02/13/25 08:03
MPV 9.7 fL (7.4-10.4) 02/13/25 08:03
Abs Immat Gran (auto) 0.4 10^3/uL (0-0.05) H 02/13/25 08:03
Absolute Neuts (auto) 9.0 10^3/uL (1.4-6.5) H 02/13/25 08:03
Absolute Lymphs (auto) 0.1 10^3/uL (1.2-3.4) L 02/13/25 08:03
Absolute Monos (auto) 0.5 10^3/uL (0.1-0.6) 02/13/25 08:03
Absolute Eos (auto) 0.0 10^3/uL (0-0.7) 02/13/25 08:03
Absolute Basos (auto) 0.1 10^3/uL (0-0.2) 02/13/25 08:03
Immature Gran % 4.2 % (0-0.5) H 02/13/25 08:03
Neutrophils % 88.7 % (42.2-75.2) H 02/13/25 08:03
Lymphocytes % 1.0 % (20.5-51.1) L 02/13/25 08:03
Monocytes % 5.2 % (1.7-9.3) 02/13/25 08:03
Eosinophils % 0.1 % (0-6) 02/13/25 08:03
Basophils % 0.8 % (0-2) 02/13/25 08:03
Creatinine 0.6 mg/dL (0.7-1.3) L 02/13/25 08:03
Vital Signs
Vital Signs
Temp Pulse Resp BP Pulse Ox
97.5 F 78 20 110/58 96
02/13/25 08:00 02/13/25 08:00 02/13/25 08:00 02/13/25 08:00 02/13/25 08:00
--- NOTE | 2025-02-13 09:47 | W.PN.HOSP.TC ---
Today's Communication/Plan
-
IR to excahange tube
AB
Stool studies
Serum and urine osmolality, urine sodium
Blood transfusion
Assessment / Plan
Assessment / Plan
70-year-old male with fatigue. Patient has a history of esophageal carcinoma with chemo and radiation and PEG tube placement June 2024. This was recently exchanged at [facility]. He has erythema and yellow discharge around the G-tube
he was admitted for G-tube malfunction 1 month ago he also had diarrhea he is also receiving chemotherapy and radiation.
CAT scan 01/20/2025-small pleural effusion and minimal right pleural effusion. Mild to moderate atelectasis. Large heterogeneous enhancing mass in the central and left upper abdomen resulting in obstruction of the esophagus progression of gastric
carcinoma. Evidence of invasion of lateral segment of the left lobe of the liver. Also evidence of metastatic lesions in the liver and spleen. Lymphadenopathy within the abdomen. Bilateral nephroliths. Colonic diverticula. Bony degenerative
changes. No small bowel obstruction
Patient awake and alert
Cardiovascular system S1-S2 appreciated
Abdomen distended, mild redness around the J-tube, nontender
Minimal pedal edema
# Suspected cellulitis and malfunction of the G-tube with ongoing leakage.
Zosyn for cellulitis around J-tube
IR consulted for exchange
# Hyponatremia
Check serum and urine osmolality and urine sodium
Possible SIADH
# Esophageal adenocarcinoma with metastasis-Follows with Dr. Ramos
On chemotherapy and radiation
recurrent gastric mass causing obstruction-J tube
Mets to right shoulder, right iliac bone, right femoral neck
Right peritrochanteric metastatic lesion -Seen by 01/23/25. No prophylactic fixation was recommended and advised to follow with Ortho Oncology
Hematology oncology consultation
# Anemia likely secondary to malignancy-transfuse 1 unit of blood. Discussed with the patient and agreeable to proceed. Informed consent obtained.
# Thrombocytopenia-likely secondary to chemotherapy-monitor
# DVT prophylaxis-Lovenox
# Full code
Discussed with nursing at bedside
time spent over 50 min
Anticipated Discharge: 24 - 48 hours
Subjective/Interval History
-
Date of Service: February 13, 2025
Objective Data
-
Labs:
Laboratory Results
02/13/25
08:03
WBC 10.1
Hgb 7.0 L D
Hct 21.0 L
Plt Count 136 D
Sodium 131 L
Potassium 3.8
Chloride 104
Carbon Dioxide 21 L
BUN 19
Creatinine 0.6 L
Glucose 103 H
Calcium 8.0 L
Vital Signs:
Vital Signs
Temp Pulse Resp BP Pulse Ox
97.5 F 78 20 110/58 96
02/13/25 08:00 02/13/25 08:00 02/13/25 08:00 02/13/25 08:00 02/13/25 08:00
I&O
02/12/25 02/13/25 02/14/25
06:59 06:59 06:59
Intake Total 1300 / 1300
Balance 1300 / 1300
--- NOTE | 2025-02-13 10:25 | W.PN.UPDATE ---
Update Note
Progress Note Update
70 yo amle with J tube in LLQ placed at [facility]. He had routine change about 2 months ago. He was sent to IR for leaking around the J tube. He does note a nurse cinched the bumper down against the skin
On exam he has a 14 Fr J tube in the LLQ. The area around the drain is mildly erythematous but not tenr or indurated. The bumper is snug against the skin. The drain was flushed with 200cc of water without resistance or leakage. Newdressing was
applied.
He was educated on the tube care and the importance of keeping the bumper close to the skin to avoid pericatheter leakage
He will arrange for routine tube maintenance at [facility] in the next 1-2 weeks
[2025-02-13] MEDS: D5/0.9% SODIUM CHLORIDE 1000 IV (11:18)
--- NOTE | 2025-02-13 13:27 | CM ---
Reviewed the chart notes. Referral sent to [facility] for resumption of services. CM continues to be available to patient/family and is monitoring medical plan for needs at discharge.
Plan: Discharge to home with resumption of [facility] services.
[2025-02-13] MEDS: LASIX 20 MG IV (15:01)
[2025-02-13 15:22] LABS: Urine Character Cloudy (Clear)
[2025-02-13 15:50] LABS: Urine Red Blood Cell 0-2 /HPF (0-2); Urine White Cell 0-2 /HPF (0-5)
--- NOTE | 2025-02-13 16:20 | PTCARENOTE ---
02/13- Patient transferred and oriented to unit without issue. AAOX3, anxious. Skin CDI. MedSurg. Will set up tube feeding once Jevity is sent from kitchen. PEG tube site is erythemic with papular rash but no open areas or drainage. PEG tube in
LUQ placed correctly. Will continue to monitor.
[2025-02-13] MEDS: LOVENOX SC (17:46)
[2025-02-14] MEDS: ZOSYN 50 IV ×2 (02:12→08:39)
[2025-02-14 07:27] VITALS: BP 112/73
[2025-02-14 08:12] LABS: Hematocrit 23.4 % (39.0-52.0); Hemoglobin 7.8 g/dL (13.0-18.0); Mean Corp Hgb Conc. 33.3 g/dL (33.0-37.0); Mean Corpuscular Volume 85.4 fL (80.0-94.0); Platelet Count 126 10^3/uL (130-400); Red Cell Dist. Width 19.5 % (11.5-14.5)
--- NOTE | 2025-02-14 08:23 | W.PN.ONC2 ---
Today's Communication / Plan
-
Discharge planning -has OP treatment 02/15 in [place] office so would be ideal for dc today
J tube maintenance & wound at /[facility]
Impression
Impression
J-tube malfunction with ongoing leakage and cutaneous erythema s/p IR education re J tube care and maintenance
Esophageal adenocarcinoma with metastasis
Plan
Plan
Resume XRT and chemotherapy post discharge.
Subjective/Objective
Subjective
no new complaints
Tmax 99.5F
no further drainage around J tube after bumper adjusted in IR yesterday
Vital Signs:
Vital Signs
Temp Pulse Resp BP Pulse Ox
99.5 F 111 19 112/73 95
02/14/25 07:27 02/14/25 07:27 02/14/25 07:27 02/14/25 07:27 02/14/25 07:27
Lab Results:
Laboratory Data
WBC 8.4 10^3/uL (4.8-10.8) 02/14/25 07:32
Hgb 7.8 g/dL (13.0-18.0) L 02/14/25 07:32
Plt Count 126 10^3/uL (130-400) L 02/14/25 07:32
eGFR > 60.00 02/13/25 08:03
Physical Exam
HEENT: Moist Mucous Membranes; No Jaundice
Cardiology: Normal Sinus Rhythm
Pulmonary: Other (unlabored)
GI: Soft and Other (J tube)
Extremities: Pulses Present; No Edema
Neuro: Non Focal
[2025-02-14 08:55] LABS: Blood Urea Nitrogen 18 mg/dl (9-20); Calcium 8.0 mg/dl (8.4-10.2); Carbon Dioxide 22 mmol/L (22-30); Chloride 105 mmol/L (98-107); Estimated Creatinine Clearance 107 ml/min; Glucose 171 mg/dl (70-99); Magnesium 1.8 mg/dl (1.6-2.3); Potassium 3.2 mmol/L (3.5-5.1); Sodium 134 mmol/L (135-145); eGFR > 60.00
--- NOTE | 2025-02-14 09:50 | CM ---
Addendum entered by Rosa Fleming 02/14/25 14:03:
updated recommendations and goal faxed to [facility] along with notes from dietary, physician and IR notes,
Addendum entered by Rosa Fleming 02/14/25 09:57:
[facility]
[phone]

Original Note:
Chart reviewed and patient to IR today for possible J-tube exchange per notes. Patient to return to home with [facility] and resumption of tube feeds through [facility] when stable, patient will need new orders in physician notes for resumption
of tube feeds.
Plan; Home with [facility].
Patient needs Resumption orders for tube feeds at home
--- NOTE | 2025-02-14 14:08 | PN.CDI ---
Addendum entered and electronically signed by Alistair Brower MD 02/15/25 07:46:
Documentation is complete at this time.
Original Note:
CDI
- -
CDI:
Physician Documentation Request
Admit Date: 02/12/25 16:54
Dear Doctor Inocente,
H&P: 'SIRS 2 out of 4 met on admission HR>90. WBC >12'
02/13 Hospitalist PN: 'Suspected cellulitis and malfunction of the G-tube with ongoing leakage.
Zosyn for cellulitis around J-tube'
Laboratory Tests
02/12/25
13:02
WBC 12.4 H
02/12/25
12:53 02/12/25
19:02 02/12/25
23:34
Pulse 128 109 108
Please clarify which of the following most accurately describes the status of the patient's infection:
Sepsis, POA
- Systemic manifestations of infection, with 2 or more SIRS criteria which include:
- Fever >100.9 degrees F or hypothermia < 96.8 degrees F
- Leukocytosis - WBC > 12,000 or leukopenia - WBC < 4,000 or > 10% bands
- Tachycardia > 90 beats per minute
- Tachypnea - RR > 20 breaths per minute or PaCO2 , 32mmHg
Source: Merck Manual 2012
SIRS of noninfectious origin
Localized Infection Only, Without Systemic Illness
- indicate the site/source, such as UTI, pneumonia etc.
Other
Use of terms such as suspected, likely, concern for, or probable (associated with a specific diagnosis that is being evaluated, monitored, or treated as if it exists) are acceptable and can be coded in the inpatient setting, when documented at the
time of discharge.
Thank you,
Sherie Rizzo RN, BSN
CDI Specialist
Available via [place] text
Please use your independent medical judgment in providing your response.
--- NOTE | 2025-02-14 14:11 | W.PN.HOSP.TC ---
Addendum entered and electronically signed by Alistair Brower MD 02/14/25 14:39:
[id number] with Lasix
Hypokalemia likely secondary to patient getting Lasix yesterday. Replace potassium prior to discharge
Addendum entered and electronically signed by Alistair Brower MD 02/14/25 14:35:
left message for brother
Original Note:
Today's Communication/Plan
-
discharge
Assessment / Plan
Assessment / Plan
70-year-old male with fatigue. Patient has a history of esophageal carcinoma with chemo and radiation and PEG tube placement June 2024. [facility] He has erythema and yellow discharge around the G-tube
he was admitted for G-tube malfunction 1 month ago he also had diarrhea he is also receiving chemotherapy and radiation.
CAT scan 01/20/2025-small pleural effusion and minimal right pleural effusion. Mild to moderate atelectasis. Large heterogeneous enhancing mass in the central and left upper abdomen resulting in obstruction of the esophagus progression of gastric
carcinoma. Evidence of invasion of lateral segment of the left lobe of the liver. Also evidence of metastatic lesions in the liver and spleen. Lymphadenopathy within the abdomen. Bilateral nephroliths. Colonic diverticula. Bony degenerative
changes. No small bowel obstruction
Patient awake and alert
Cardiovascular system S1-S2 appreciated
Abdomen distended, mild redness around the J-tube, nontender
Minimal pedal edema
# Suspected cellulitis and malfunction of the G-tube with ongoing leakage.
Zosyn changed to Augmentin
IR adjusted the G-tube pulled back and no more leaking. Did not need to exchange.
Tube feeds started and patient is tolerating without any leak.
# Hyponatremia
Check serum and urine osmolality and urine sodium
Possible SIADH
# Esophageal adenocarcinoma with metastasis-Follows with Dr. Ramos
On chemotherapy and radiation
recurrent gastric mass causing obstruction-J tube
Mets to right shoulder, right iliac bone, right femoral neck
Right peritrochanteric metastatic lesion -Seen by 01/23/25. No prophylactic fixation was recommended and advised to follow with Ortho Oncology
Hematology oncology consultation appreciated
# Anemia likely secondary to malignancy-transfused 1 unit of blood 02/13/25. Hemoglobin 7.8. Per discussion with hematology oncology no further transfusion is required okay for discharge.
# Thrombocytopenia-likely secondary to chemotherapy-monitor
# DVT prophylaxis-Lovenox
# Full code
Discussed with nursing
Discussed with oncology
Discussed with case management
Case management is contacting the tube feed infusion company to set up the new rate.
Anticipated Discharge: Today
Subjective/Interval History
-
Date of Service: February 14, 2025
Objective Data
-
Labs:
Laboratory Results
02/14/25
07:32
WBC 8.4
Hgb 7.8 L
Hct 23.4 L
Plt Count 126 L
Sodium 134 L
Potassium 3.2 L
Chloride 105
Carbon Dioxide 22
BUN 18
Creatinine 0.6 L
Glucose 171 H
Calcium 8.0 L
Vital Signs:
Vital Signs
Temp Pulse Resp BP Pulse Ox
99.5 F 111 19 112/73 95
02/14/25 07:27 02/14/25 07:27 02/14/25 07:27 02/14/25 07:27 02/14/25 07:27
I&O
02/13/25 02/14/25 02/15/25
06:59 06:59 06:59
Intake Total 1300 / 1300 250 / 250
Balance 1300 / 1300 250 / 250
--- NOTE | 2025-02-14 14:11 | W.PN.UPDATE ---
Update Note
Progress Note Update
New recommendation for tube feeding Jevity 1.5-8 p.m. to 9 AM 105 mL/h with tube feed flushes 25 mL/h.
[2025-02-14] MEDS: ZOSYN IV (14:17)
--- NOTE | 2025-02-14 14:34 | W.DS.TRANS ---
Addendum entered and electronically signed by Alistair Brower MD 02/14/25 15:45:
Dictation- [id number]
Original Note:
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
-
Discharge Instructions:
Discharge Diagnosis/Procedures J-tube malfunction with ongoing leakage
Hyponatremia
Esophageal adenocarcinoma with metastasis
Anemia
Thrombocytopenia
Additional Diets Tube feeding 8 PM to 9 AM Jevity 1.5 at 105 mL/h
with flushes 25 mL/h.
Activity As tolerated
Driving Restrictions As prior to admission
Other Services [facility]
Instructions:
Stand-Alone Forms:
Changes to Home Medications: Yes
Discharge Medications:
DC Medications w/original date entered in [employer]
morphine concentrate 100 mg/5 mL (20 mg/mL) oral solution 10 mg PO Q4HPRN PRN severe pains 02/12/25
amoxicillin 250 mg-potassium clavulanate 62.5 mg/5 mL oral suspension 10 ml feeding tube TID Infection #100 mL 02/14/25
Home Medication Changes
new
Augmentin
Pending Results: No
[2025-02-14] MEDS: MAGNESIUM OXIDE 500 MG TUBE (15:03)
[2025-02-14] MEDS: KCL ELIXIR 40 MEQ TUBE (15:03)
[2025-02-14] MEDS: AUGMENTIN 250 MG/5 ML 500 MG TUBE (15:04)
== END 2025-02-14 15:49 | disposition home health service (06) | DRG 394 ==
LOC: 4 WEST ACU 16:54
PROVIDERS: Emergency Medicine; Student in an Organized Health Care Education/Training Program; ADMITTING PHYSICIAN Hospitalist; ATTENDING PHYSICIAN Hospitalist; CONSULT PHYSICIAN Internal Medicine Hematology & Oncology; EMERGENCY PHYSICIAN Emergency Medicine; FAMILY PHYSICIAN Family Medicine
PROC: 30233N1 Transfusion of Nonautologous Red Blood Cells into Peripheral Vein, Percutaneous Approach (ICD-10-PCS; 2025-02-13)
DX: K94.13 Enterostomy malfunction (principal); C16.0 Malignant neoplasm of cardia; C78.89 Secondary malignant neoplasm of other digestive organs; E22.2 Syndrome of inappropriate secretion of antidiuretic hormone; L03.311 Cellulitis of abdominal wall; K94.12 Enterostomy infection; D69.6 Thrombocytopenia, unspecified; E87.6 Hypokalemia; D63.0 Anemia in neoplastic disease; E86.0 Dehydration; Y83.3 Surgical operation with formation of external stoma as the cause of abnormal reaction of the patient, or of later complication, without mention of misadventure at the time of the procedure; Z79.899 Other long term (current) drug therapy; Z92.21 Personal history of antineoplastic chemotherapy; Z92.3 Personal history of irradiation
CPT/HCPCS: 74019; 80048; 80053; 81003; 81015; 83605; 83735; 83930; 83935; 84300; 85025; 85027; 86850; 86900; 86901; 86920; 87045; 87046; 87070; 87077; 87186; 87205; 87324; 87427; 87449; 96360; 97162; 99284; P9016

== ENCOUNTER 2025-02-25 20:27 | Inpatient (IN) | payer MEDICARE, SELFPAY ==
[2025-02-25] VITALS (11 sets, daily range): BP systolic 96–120; BP diastolic 64–76; BMI 19.5; BMI 19.3
[2025-02-25 13:09] LABS: ALT (SGPT) 18 U/L (0-50); AST (SGOT) 20 U/L (17-59); Albumin 3.5 g/dl (3.5-5.0); Alkaline Phosphatase 97 U/L (38-126); Blood Urea Nitrogen 54 mg/dl (9-20); Calcium 8.8 mg/dl (8.4-10.2); Carbon Dioxide 23 mmol/L (22-30); Chloride 95 mmol/L (98-107); Glucose 162 mg/dl (70-99); Potassium 4.3 mmol/L (3.5-5.1); Sodium 131 mmol/L (135-145); Total Protein 6.4 g/dl (6.3-8.2); eGFR > 60.00
[2025-02-25 13:47] LABS: Hematocrit 26.3 % (39.0-52.0); Hemoglobin 8.8 g/dL (13.0-18.0); Mean Corp Hgb Conc. 33.5 g/dL (33.0-37.0); Mean Corpuscular Volume 85.1 fL (80.0-94.0); Red Cell Dist. Width 21.3 % (11.5-14.5)
--- NOTE | 2025-02-25 13:58 | EDRN ---
Anselmo SRINIVASAN in to see pt.
--- NOTE | 2025-02-25 14:08 | ED.GENMED ---
History of Present Illness
<Bernard Mckeon PA-C - Last Filed: 02/28/25 22:34>
General
Chief Complaint: Catheter/Tube Problem
Source: patient
Exam Limitations: none
Time Seen by Provider: 02/25/25 13:56
History of Present Illness
History of Present Illness:
70-year-old male with history of esophageal cancer presents with malfunctioning J-tube. He states there is fluid that is darker than usual leaking around the J-tube. He also notes increased abdominal pain and distention. He follows with cancer
care here. No fever. No vomiting. No other complaints at this time.
Past History
<Bernard Mckeon PA-C - Last Filed: 02/28/25 22:34>
Past History
ED Past Medical History: Cancer (Esophageal)
ED Past Surgical History: Other (J-tube)
Phy Exam
<Bernard Mckeon PA-C - Last Filed: 02/28/25 22:34>
Physical Exam
Physical Exam:
General: Slightly cachectic appearing male no acute respiratory distress
HEENT normocephalic atraumatic
Abdomen is distended tender to the right mid abdomen. There is a J-tube present. Currently there is a urostomy bag around the J-tube to collect EXTR leakage from the J-tube. The bumper from the J-tube has seem to separate from the skin about 3 cm
Extremities: No cyanosis
Skin warm no rash
Course
<Bernard Mckeon PA-C - Last Filed: 02/28/25 22:34>
Orders/Labs/Results
Orders:
Orders
02/25/25
Electrocardiogram (*1) Stat
Comment: DONE
02/25/25 Breakfast
NPO
Allow oral meds: Yes
Allow clear liquids: Sips of Clears
02/25/25 12:39
Complete Blood Count/With Diff Urgent
Comprehensive Metabolic Panel Urgent
02/25/25 14:07
CT Abd/pelvis W Iv Cont Urgent
Comment:
Reason For Exam: abdominal pain
0.9% Sodium Chloride 500 ml [Nss] 500 ml IV BOLUS
02/25/25 20:00
Admit/Transfer Patient As Directed
Co-Sign Provider:
Level of Care: Inpatient admission
Assign to:: Telemetry
Physician / Group: Karthik
Diagnosis: Ileus, Metastatic Gastroesophageal Cancer
Reason for Telemetry: Arrhythmia
Date to Stop Telemetry: 02/28/25
Time to Stop Telemetry: 11:00
Reason for Hospitalization: Ileus, Metastatic Gastroesophageal Cancer
Expected length of stay greater than two midnights?: Yes
ELOS- Estimated Length of Stay in days: 3
I certify the patient meets the requirements for IP care: Yes
02/25/25 20:01
Code Status As Directed
Resuscitation Status: Full Code
PRN Pain Medication Management As Directed
May give lesser potent ordered pain med per pt: Yes
preference::
Protocol:: Medication orders for pain may be administered in a
manner that supports deferring to patient preference
when the pt is:
- Requesting an ordered lesser potent pain medication.
Least to most potent pain medications are defined
as: acetaminophen < NSAID < tramadol < opioids
(morphine, oxycodone, hydromorphone).
- Requesting a lesser dose of the same medication IF
ORDERED.
- Requesting a less intrusive route of administration
if both routes are prescribed by the provider (PO <
IV).
02/25/25 20:05
Enema As Directed
Type: Milk and molasses
Amount: 1
02/25/25 21:03
0.9% Sodium Chloride 1000 ml [Nss] 1,000 ml IV 100 mls/hr
Bisacodyl [Dulcolax] 10 mg RECTAL DAILYPRN PRN
Morphine Sulfate 2 mg IV Q4HPRN PRN
Ondansetron Injectable [Zofran] 4 mg IV Q6HPRN PRN
02/25/25 21:03
WOUND/OSTOMY CONSULT Routine
Reason for Consult: Drainage applicance around J-tube site.
Activity As Directed
Activity Level: Ambulate
With Assistance
Bladder Scan As Directed
Follow Bladder Retention/Intermittent Cath Algorithm?: Yes
PRN if no void in __ hours: 6
Frequency: Per Retention Algorithm
If Bladder Scan Result >: 400
then:: Straight cath
Gastrointestinal Tubes As Directed
Type: Jejunostomy
To suction?: Yes
Type of suction: Low intermittent
To straight drainage/gravity?: Yes
I/O [Intake/ Output] As Directed
Frequency: Per unit guidelines
Straight Cath As Directed
Frequency: Per Retention Algorithm
Additional Instructions: straight cath as needed per acute urinary retention algorithm for 24 hrs
Additional Instructions: for bladder scan greater than 400 mL
Vital Signs As Directed
Frequency: Per unit guidelines
Weight As Directed
Frequency: Daily
Oxygen Therapy [O2 Therapy] [RESP] Routine
Titrate/Wean O2 to maintain O2 sat greater than (%): 94
PT Consult [Pt Eval And Treat] Routine
Activity Level: Ambulate
With Assistance
DX Deep Vein Thrombosis Video Routine
02/26/25 05:30
Basic Metabolic Panel IN AM
Complete Blood Count/No Diff IN AM
02/26/25 08:00
Pantoprazole [Protonix IV] 40 mg IV DAILY
02/26/25 18:00
Enoxaparin Sodium [Lovenox] 40 mg SC QPM
02/28/25 11:00
DC Protocol for Telemetry ONCE
Abnormal Lab Results
02/25/25
12:39
RBC 3.09 L 10^6/uL
(4.70-6.10)
Hgb 8.8 L g/dL
(13.0-18.0)
Hct 26.3 L %
(39.0-52.0)
RDW 21.3 H %
(11.5-14.5)
MPV 11.3 H fL
(7.4-10.4)
Abs Immat Gran (auto) 0.1 H 10^3/uL
(0-0.05)
Absolute Lymphs (auto) 0.1 L 10^3/uL
(1.2-3.4)
Immature Gran % 2.6 H %
(0-0.5)
Neutrophils % 91.2 H %
(42.2-75.2)
Lymphocytes % 1.6 L %
(20.5-51.1)
Sodium 131 L mmol/L
(135-145)
Chloride 95 L mmol/L
(98-107)
BUN 54 H mg/dl
(9-20)
Glucose 162 H mg/dl
(70-99)
02/25/25 12:39
02/25/25 12:39
Vital Signs
Initial and Last Documented VS:
Initial Vital Signs
Temp Pulse Resp BP Pulse Ox
98.7 F 117 18 100/65 96
02/25/25 12:28 02/25/25 12:28 02/25/25 12:28 02/25/25 12:28 02/25/25 12:28
Last Documented Vital Signs
Temp Pulse Resp BP Pulse Ox
101.1 F H 131 32 97/61 99
02/27/25 16:05 02/27/25 15:15 02/27/25 15:15 02/27/25 15:00 02/27/25 16:45
<Morgan Bill MD - Last Filed: 02/25/25 19:04>
Orders/Labs/Results
Orders:
Orders
02/25/25
Electrocardiogram (*1) Stat
Comment: DONE
02/25/25 Breakfast
NPO
Allow oral meds: Yes
Allow clear liquids: Sips of Clears
02/25/25 12:39
Complete Blood Count/With Diff Urgent
Comprehensive Metabolic Panel Urgent
02/25/25 14:07
CT Abd/pelvis W Iv Cont Urgent
Comment:
Reason For Exam: abdominal pain
0.9% Sodium Chloride 500 ml [Nss] 500 ml IV BOLUS
02/25/25 20:00
Admit/Transfer Patient As Directed
Co-Sign Provider:
Level of Care: Inpatient admission
Assign to:: Telemetry
Physician / Group: Karthik
Diagnosis: Ileus, Metastatic Gastroesophageal Cancer
Reason for Telemetry: Arrhythmia
Date to Stop Telemetry: 02/28/25
Time to Stop Telemetry: 11:00
Reason for Hospitalization: Ileus, Metastatic Gastroesophageal Cancer
Expected length of stay greater than two midnights?: Yes
ELOS- Estimated Length of Stay in days: 3
I certify the patient meets the requirements for IP care: Yes
02/25/25 20:01
Code Status As Directed
Resuscitation Status: Full Code
PRN Pain Medication Management As Directed
May give lesser potent ordered pain med per pt: Yes
preference::
Protocol:: Medication orders for pain may be administered in a
manner that supports deferring to patient preference
when the pt is:
- Requesting an ordered lesser potent pain medication.
Least to most potent pain medications are defined
as: acetaminophen < NSAID < tramadol < opioids
(morphine, oxycodone, hydromorphone).
- Requesting a lesser dose of the same medication IF
ORDERED.
- Requesting a less intrusive route of administration
if both routes are prescribed by the provider (PO <
IV).
02/25/25 20:05
Enema As Directed
Type: Milk and molasses
Amount: 1
02/25/25 21:03
0.9% Sodium Chloride 1000 ml [Nss] 1,000 ml IV 100 mls/hr
Bisacodyl [Dulcolax] 10 mg RECTAL DAILYPRN PRN
Morphine Sulfate 2 mg IV Q4HPRN PRN
Ondansetron Injectable [Zofran] 4 mg IV Q6HPRN PRN
02/25/25 21:03
WOUND/OSTOMY CONSULT Routine
Reason for Consult: Drainage applicance around J-tube site.
Activity As Directed
Activity Level: Ambulate
With Assistance
Bladder Scan As Directed
Follow Bladder Retention/Intermittent Cath Algorithm?: Yes
PRN if no void in __ hours: 6
Frequency: Per Retention Algorithm
If Bladder Scan Result >: 400
then:: Straight cath
Gastrointestinal Tubes As Directed
Type: Jejunostomy
To suction?: Yes
Type of suction: Low intermittent
To straight drainage/gravity?: Yes
I/O [Intake/ Output] As Directed
Frequency: Per unit guidelines
Straight Cath As Directed
Frequency: Per Retention Algorithm
Additional Instructions: straight cath as needed per acute urinary retention algorithm for 24 hrs
Additional Instructions: for bladder scan greater than 400 mL
Vital Signs As Directed
Frequency: Per unit guidelines
Weight As Directed
Frequency: Daily
Oxygen Therapy [O2 Therapy] [RESP] Routine
Titrate/Wean O2 to maintain O2 sat greater than (%): 94
PT Consult [Pt Eval And Treat] Routine
Activity Level: Ambulate
With Assistance
DX Deep Vein Thrombosis Video Routine
02/26/25 05:30
Basic Metabolic Panel IN AM
Complete Blood Count/No Diff IN AM
02/26/25 08:00
Pantoprazole [Protonix IV] 40 mg IV DAILY
02/26/25 18:00
Enoxaparin Sodium [Lovenox] 40 mg SC QPM
02/28/25 11:00
DC Protocol for Telemetry ONCE
Abnormal Lab Results
02/25/25
12:39
RBC 3.09 L 10^6/uL
(4.70-6.10)
Hgb 8.8 L g/dL
(13.0-18.0)
Hct 26.3 L %
(39.0-52.0)
RDW 21.3 H %
(11.5-14.5)
MPV 11.3 H fL
(7.4-10.4)
Abs Immat Gran (auto) 0.1 H 10^3/uL
(0-0.05)
Absolute Lymphs (auto) 0.1 L 10^3/uL
(1.2-3.4)
Immature Gran % 2.6 H %
(0-0.5)
Neutrophils % 91.2 H %
(42.2-75.2)
Lymphocytes % 1.6 L %
(20.5-51.1)
Sodium 131 L mmol/L
(135-145)
Chloride 95 L mmol/L
(98-107)
BUN 54 H mg/dl
(9-20)
Glucose 162 H mg/dl
(70-99)
02/25/25 12:39
02/25/25 12:39
Vital Signs
Initial and Last Documented VS:
Initial Vital Signs
Temp Pulse Resp BP Pulse Ox
98.7 F 117 18 100/65 96
02/25/25 12:28 02/25/25 12:28 02/25/25 12:28 02/25/25 12:28 02/25/25 12:28
Last Documented Vital Signs
Temp Pulse Resp BP Pulse Ox
101.1 F H 131 32 97/61 99
02/27/25 16:05 02/27/25 15:15 02/27/25 15:15 02/27/25 15:00 02/27/25 16:45
<Bernard Mckeon PA-C - Last Filed: 02/28/25 22:34>
MDM/Problems Addressed
Differential Diagnosis Includes:
Malfunctioning J-tube abdominal pain and distention. Consider worsening underlying metastatic disease. He is tender on exam. Will order CT of the abdomen. Labs reviewed.
Case signed out to ED attending
<Bernard Mckeon PA-C - Last Filed: 02/28/25 22:34>
*Pulse Oximetry
SaO2: 96
Oxygen Mode of Delivery: Room air
Patient hypoxic: no
*Critical Care Note
Total Time (30-74mins, 75-104mins- exclusive of procedures): Not Applicable
ED Attending Note
<Bernard Mckeon PA-C - Last Filed: 02/28/25 22:34>
-
Portions of this chart may have been created with voice recognition software.� Occasional wrong word or��sound alike� substitutions may have occurred due to the inherent limitations of voice recognition software.
<Morgan Bill MD - Last Filed: 02/25/25 19:04>
ED Attending Note
Patient seen and examined by attending physician: Yes
ED Attending Note:
I have seen and evaluated the patient with a [id number] encounter. I have spoken to the advance practicer provider and involved in the medical history, the physical exam, medical decision making.
Evaluation and management service: agree unless noted differently below.
Results interpretation: agree unless noted differently below.
Focused HPI: 70-year-old male with a past medical history of esophageal cancer with metastasis to bone, spleen, liver who presents to the emergency department for evaluation of leaking around his J-tube. Patient has jejunostomy tube and is
dependent on this for feeds. He says that he has had chronic issues over the past few months with leakage from his J-tube. Most recently was having leakage last week and had J-tube exchanged for a larger size (18 [place]) at [facility].
Over the past few days leaking has returned, this morning visiting nurse noticed large amount of drainage to the point that she put a urostomy bag around the tube to help contain the drainage. Drainage yellowish to brown. He has noted some
increasing abdominal pain and distention over the past few days as well. No fever or chills. No vomiting. No other acute complaints noted. Sent to the ER for assessment.
Physical exam: Awake and alert not in acute distress. Tachycardic otherwise normal vitals. His abdomen is soft, mildly distended, moderately tender right upper abdomen and epigastrium. J-tube noted with bumper approximately 3 cm distracted from
the skin and some leakage around the J-tube site yellowish in color and thick.
Medical Decision Makin-year-old male presents with leakage from J-tube site, increasing abdominal bloating and pain in the past few days since recent exchange at [facility]. Vitals and exam as above. Labs were sent off
including CBC which shows stable anemia, CMP which shows mild hyponatremia. Awaiting results of CT abdomen pelvis. Will provide fluids. He was noted to have episode of tachycardia with heart rate 150-170 on the monitor appears narrow complex and
regular SVT versus sinus tach. Heart rate now 100-110. EKG shows sinus tachycardia. Will continue to monitor on telemetry.
CT shows very large mass in the left upper abdomen increased in size from prior. He has dilation of the small bowel concerning for bowel obstruction. J-tube hooked to suction for drainage. Will admit for continued management. Discussed case with
hospitalist.
Discharge Plan
Departure
Patient Disposition: Admit
Date of Disposition: 02/25/25
Time of Disposition: 19:03
Admit to doctor: Karthik
Presentation/result/management discussed w/ accepting MD/DO: Hospitalist
Discharge Problem:
Bowel obstruction
Interventions
Interventions:
*Risk Screen - Suicide Last Done: 02/25/25 12:28
*General Assessment Last Done: 02/25/25 14:30
*Neglect/Abuse Screening Last Done: 02/25/25 12:28
*ED- Fall Risk Assessment Last Done: 02/25/25 14:30
*ED COVID-19 Vaccine History Last Done: 02/25/25 14:30
*Nursing Disposition Last Done: 02/25/25 21:05
QF-Avuhmk-Xaaauottku Assessment Last Done: 02/25/25 14:30
ED-Male Genitourinary Assessment Last Done: 02/25/25 14:30
Discharge Date and Time
Discharge Date/Time: 02/25/25 21:06
[2025-02-25 14:22] LABS: Nucleated Red Blood Cells % 0 % (-); Platelet Count 162 10^3/uL (130-400)
[2025-02-25] MEDS: NSS 500 IV (14:28)
--- NOTE | 2025-02-25 15:55 | EDRN ---
HR regular and increased to 170. EKG being done at this time and will get atemp. Pt placed on satellite project site monitor at this time.
--- NOTE | 2025-02-25 20:06 | HPS.HSE ---
Family Physician
-
Family Physician: RAFIQ RAINES MD
Chief Complaint
-
Abdominal Distention, J-Tube leakage
History of Present Illness
Patient is a 70y M with PMH significant for metastatic esophageal adenocarcinoma on chemo and XRT who presents to ED complaining of abdominal distention, fatigue and ongoing leakage around his J-tube site. Patient was last admitted to 02/12 -
02/14 for similar complaints. His J-tube was adjusted in IR and the leakage improved. Patient states that one week ago his J-tube completely fell out at home. The following day he presented to [facility] where the tube was replaced and
upsized. he continued to have issues with drainage around the tube and a collection device / ostomy bag was placed. He states that he has still had some occasional leakage despite this.
Patient has his most recent chemo and XRT sessions on Tuesday. Following that he states that he feels much more weak / fatigued.
In addition, he complains of worsening abdominal distention and pain. He has no N/V. No fevers / chills.
Patient states that he has been very constipated. He has been passing some gas - but cannot recall when he last had a BM.
Patient presented to the ED this evening for further evaluation.
Medical History
Past Medical History
Past Medical History: Reports Other
Additional Past Medical History:
Metastatic Gastroesophageal Carcinoma
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
Past Surgical History: Reports Other
Additional Past Surgical History:
J-Tube Placement
Social History
Tobacco: Non-smoker
Alcohol: Former
Drug: None
Family History
Family History: Not pertinent
Allergies / Home Medications
Allergies reflects when Allergies were last updated in [facility].
Home Medications with original date entered in [facility]
Allergy/Medication List:
Allergies
Allergy/AdvReac Type Severity Reaction Status Date / Time
No Known Allergies Allergy Verified 02/25/25 12:28
Home Medications
morphine concentrate 100 mg/5 mL (20 mg/mL) oral solution 10 mg feeding tube Q4HPRN PRN severe pains 02/12/25
Review of Systems
-
History Source: Patient
A 12 point ROS was completed and negative except as noted: Yes
Constitutional: Denies Fever or Chills
Respiratory: Denies Cough or Trouble Breathing
Cardiac: Denies Chest Pain or Palpitations
Abdomen/GI: Reports Abdominal Pain and Constipated; Denies Nausea, Vomiting or Diarrhea
: Denies Dysuria, Frequency or Flank Pain
Musculoskeletal: Denies Joint Pain or Edema
Neurological: Denies Dizzy or Headache
Physical Exam
Vital Signs
Vital Signs
Temp Pulse Resp BP Pulse Ox
99.0 F 108 17 110/71 97
02/25/25 16:02 02/25/25 20:00 02/25/25 20:00 02/25/25 20:00 02/25/25 20:00
Physical Exam
General: Other (Cachectic, chronically ill-appearing 70y M in no acute distress.)
HEENT: Other (Dry MM. Neck supple.)
Respiratory: Other (Decreased at bases - otherwise clear.)
Cardiac: S1/S2 and Tachycardia; No Murmur
GI: Other (Abdomen is distended. Bowel sounds are not appreciated. L sided J-tube site connected to suction with scant bilious appearing drainage. Small amount of brown material in ostomy bag surrounding J-tube site.)
Musculoskeletal: No Clubbing, No Cyanosis and No Edema
Neuro: AO x 3
Laboratory Results
-
02/25/25 12:39
02/25/25 12:39
Laboratory Results
Total Bilirubin 0.9 mg/dl (0.2-1.3) 02/25/25 12:39
AST 20 U/L (17-59) 02/25/25 12:39
ALT 18 U/L (0-50) 02/25/25 12:39
Alkaline Phosphatase 97 U/L (38-126) 02/25/25 12:39
Impression/Plan
-
A/P: Patient is a 70y M with PMH significant for metastatic gastroesophageal carcinoma who presents to ED complaining of abdominal pain and distention and continued J-tube leakage.
Abdominal Pain / Distention
Constipation
J-Tube Site Leakage
- Admit for further evaluation and treatment.
- CT done in the ED today shows progressive changes of underlying malignancy including known gastric outlet obstruction.
- Dilated small bowel loops - but no transition point identified. With absent bowl sounds suspect this most likely represents ileus.
- Maintain J-tube to suction for now - minimal output thus far.
- Pain control, antiemetics, supportive care.
- Bowel regimen from below to address colonic stool burden / constipation.
- Consider GI evaluation for additional recommendations if ileus / constipation persist.
- Wound Care eval for ostomy device placement and management of J-tube leakage.
Metastatic Gastroesophageal Carcinoma
- On palliative chemo and XRT since early January.
- CT today shows progression of disease despite these measures.
- Continue supportive care / pain control.
- Follow-up with Oncology as an outpatient.
Protein Calorie Malnutrition
- Secondary to the above.
- Hold TF acutely pending improvement in bowel function.
- Jevity 1.5 @ 105cc/hr.
DVT Prophylaxis: Lovenox
Code Status: Full
--- NOTE | 2025-02-25 21:05 | PTCARENOTE ---
Pt arrived from via stretcher, oob to bedx1 assist, with generalized weakness. aaox3 and cooperative. jtube connected to low intermittent suction. oriented to room. call lynn within reach.
[2025-02-25] MEDS: NSS 1000 IV (21:44)
--- NOTE | 2025-02-25 22:38 | VATNOTE ---
pt unsure if port is a power port; couldnt remember where port placed.
--- NOTE | 2025-02-25 23:05 | PTCARENOTE ---
Milk and molasses enema administered. Pt tolerated procedure. Placed Pt on bsc x1 assist. Pt produced a moderate, soft bowel movement. Pt back in bed. ivf infusing as ordered. call lynn within reach.
[2025-02-26] VITALS (11 sets, daily range): BP systolic 93–145; BP diastolic 48–66; BMI 19.3; BMI 19.6
--- NOTE | 2025-02-26 01:15 | PTCARENOTE ---
Pt aaox3, cooperative. J-tube draining light brown liquid, connected to low intermittent suction. Hr:120-130s, irregular rhythm. Pt asymptomatic. EKG obtained, Yasmin GRIGGSNP aware.
0120 Pt's HR 170s, sustaining, asymptomatic. COURSEWARE DEVELOPER at the bedside. EKG obtained. Ice pack applied to Pt. 2.5mg Iv metoprolol given as ordered. Pt's HR decreased to 110s.
0255 Pt's Hr in the 120s. COURSEWARE DEVELOPER notified. Pt temp 102.7. Tylenol IV ordered and given.
0320 Pt's Hr increased to 170s and quickly went back down to 120s. vss. COURSEWARE DEVELOPER made aware, labs ordered.
0500 Pt's Hr increased to 170s and after approx 5 mins HR decreased to 120s, asymptomatic. BP: 93/52. COURSEWARE DEVELOPER aware.
--- NOTE | 2025-02-26 01:34 | W.PN.UPDATE ---
Update Note
Progress Note Update
Patient HR elevated to 130's, then up to 170's, EKG showed tachycardia, HR 129. BP elevated 145/66, HR remained at 170's. Vagal maneuvers performed, bearing down, blow thru straw, ice to face. HR down to 130's, BP 125/68. Patient states he feels no
palpitations, chest discomfort, lightheadedness, dizziness. HR remains in mid 130's sustained, BP 125/86, ordered Lopressor 2.5 mg IV x 1.
~4:30 Pt heart rate jumped to 170's for approximately 3 minutes and then returned to 110's, BP 94/51, oral temp 102.7. Ordered Tylenol 1 g IV Q6H PRN.
Mag level added to am labs. Consider Cardiology consult as appropriate.�
[2025-02-26] MEDS: LOPRESSOR 2.5 MG IV ×2 (01:39→18:46)
[2025-02-26] MEDS: OFIRMEV 100 IV ×2 (03:16→19:35)
[2025-02-26 06:04] LABS: Hematocrit 21.2 % (39.0-52.0); Hemoglobin 7.0 g/dL (13.0-18.0); Mean Corp Hgb Conc. 33.0 g/dL (33.0-37.0); Mean Corpuscular Volume 85.1 fL (80.0-94.0); Platelet Count 146 10^3/uL (130-400); Red Cell Dist. Width 21.3 % (11.5-14.5)
[2025-02-26 06:19] LABS: Blood Urea Nitrogen 52 mg/dl (9-20); Calcium 7.9 mg/dl (8.4-10.2); Carbon Dioxide 27 mmol/L (22-30); Chloride 97 mmol/L (98-107); Estimated Creatinine Clearance 63 ml/min; Glucose 117 mg/dl (70-99); Magnesium 2.1 mg/dl (1.6-2.3); Potassium 4.1 mmol/L (3.5-5.1); Sodium 132 mmol/L (135-145); eGFR > 60.00
[2025-02-26] MEDS: NSS 1000 IV (08:09)
[2025-02-26] MEDS: PROTONIX IV 40 MG IV (08:09)
--- NOTE | 2025-02-26 08:23 | CON.INTV ---
Consultation
Consultation Request
Date/Time Consultation Requested: 02/26/2025
Date/Time Consultation Performed: 02/26/2025
Medical History
-
Chief Complaint: Abdominal pain an leakage around J tube
History of Present Illness:
Patient is a 70-year-old gentleman with history of metastatic esophageal adenocarcinoma on chemotherapy and radiation who presented to the emergency room on 02/25 complaining of abdominal distention not feeling well and leakage around the J-tube
site. Of note patient had similar episode of leakage around J-tube site end of January which was managed with readjustment of tube by IR service and treatment of local cellulitis with antibiotics. Reportedly his tube fell off about a week ago. He
presented to [facility] where tube was replaced and upsized. Reportedly continued to have drainage and presented to the emergency room here. Patient appeared dehydrated he was admitted to the hospitalist service and overnight had
significant tachycardia all the way up to 170s. Patient had a CT scan performed which showed large volume of stool in the colon, dilated small bowel concerning for ileus versus developing obstruction. In view of tachycardia drop in hemoglobin
overnight, patient is being transferred to ICU and instruments sales representative consultation is requested for further input.
Past Medical History
Past Medical History: Reports Other
Additional Past Medical History:
Metastatic Gastroesophageal Carcinoma
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
Past Surgical History: Reports Other
Additional Past Surgical History:
J-Tube Placement
Social History
Tobacco: Non-smoker
Alcohol: Former
Drug: None
Family History
Family History: Not pertinent
Allergies / Home Medications
Allergies reflects when Allergies were last updated in [employer].
Allergies / Home Medications
Allergies
Allergy/AdvReac Type Severity Reaction Status Date / Time
No Known Allergies Allergy Verified 02/25/25 12:28
Home Medications
�Medication �Instructions �Recorded �Confirmed �Last Taken �Type
morphine concentrate 100 mg/5 mL 10 mg feeding tube Q4HPRN PRN 02/12/25 02/25/25 Unknown History
(20 mg/mL) oral solution severe pains
Review of Systems
-
Hematologic/Lymphatic: Other (All 14 systems reviewed and negative except as stated above in the history of present illness.)
Vitals / Labs / Diagnostic Testing
Vital Signs
Temp Pulse Resp BP Pulse Ox
98.4 F 128 16 116/63 97
02/26/25 07:19 02/26/25 07:19 02/26/25 07:19 02/26/25 07:19 02/26/25 07:19
Lab Data
02/26/25 05:30
02/26/25 05:30
Diagnostic Testing:
Physical Exam
-
HEENT: Normocephalic and Other (Dry looking mucosa)
Cardiovascular: S1/S2 (Sinus tachycardia with PVCs)
Respiratory: Clear
GI: Distended and Tender
Neurology: Awake and Alert
Skin: Warm
General: Comfortable
Assessment
-
#1. Sinus tachycardia with PVCs.
- Suspect tachycardia is a response to multiple underlying pathologies. Patient looks very dehydrated, BUN/creatinine ratio significantly elevated, dry mouth, decreased p.o. intake. Also anemia, abdominal distention, pain all of these factors can
contribute
- Ringer lactate 1 L bolus stat, PRBC 1 unit stat, continue maintenance IV fluid at 75 mL/h, monitor response of heart rate to volume resuscitation
- Pain control. Will attempt to relieve severe constipation with rectal suppository.
- Continue telemetry monitoring for any arrhythmias. Potassium and magnesium level are normal
#2. Metastatic gastroesophageal carcinoma.
- Unfortunately patient has aggressive, metastatic disease despite chemotherapy
- Currently J-tube in place
- Overall prognosis guarded
#3. Leakage around J-tube site.
- Increase abdominal pressure with large volume of stool and severe constipation likely also contributing
- General Surgery service on case, IR consult in place
- No surrounding cellulitis or purulence noted, monitor off antibiotics
#4. Protein calorie malnutrition, on tube feeding at baseline.
- Currently feeding is on hold due to leakage as well as severe constipation
- Continue IV hydration for now
#5. Anemia.
- Hemoglobin down to 7. Not much different than last admission however dropped since admission likely partly delusional
- PRBC transfuse 1 unit
- Monitor H&H closely and additional transfusion as needed
- Etiology likely multifactorial, gastroesophageal malignancy, chemotherapy contributing
- No obvious melena, hematochezia or hematemesis noted.
Other medical diagnoses:
- Mild chronic hyponatremia, suggestive of SIADH with elevated urine Na and Urine osmolality
- J tube leakage and cellulitis of insertion site, 01/2025, treated with Antibiotics
DVT prophylaxis subcu Lovenox, GI prophylaxis Protonix 40 mg
Critical Care time 65 mins -- The patient is admitted for acute critical illness for the treatment of vital organ failure and/or prevention of further life-threatening conditions. Total care includes time spent in review of history, physical exam,
medications, hemodynamic/ventilator parameters, laboratory data, imaging and discussion with house staff, pharmacy, respiratory therapy, cathode ray tube salvage processor, and nursing.
Data:
CT Abd/pelvis 02/2025: Very large centrally necrotic malignant mass in the left upper quadrant of the abdomen in the setting of gastroesophageal carcinoma with direct invasion of the lateral left hepatic lobe. Increased size of this mass and the
right hepatic lobe and splenic metastases compared to the CT abdomen/pelvis from 01/20/2025.
Obstruction at the level of the gastroesophageal junction again suspected with circumferential wall thickening and fluid in the lumen of the distal esophagus.
Large volume colonic stool concerning for constipation.
Small bowel dilatation measuring up to 3.5 cm in diameter for which considerations include a developing bowel obstruction, enteritis, or adynamic ileus.
Small left pleural effusion.
Abd wound culture 01/2025: Enterobacter, yeast and coagulase-negative Staph aureus.
[2025-02-26 09:11] LABS: B.E. 4.1 mmol/L; HCO3 26.9 mmol/L (21-28); O2 Saturation % 98.9 % (94-98); PCO2 30 mmHg (35-48); PO2 74 mmHg (83-108)
--- NOTE | 2025-02-26 09:16 | CON.GS ---
Medical History
-
Chief Complaint: Abdominal distension, leakage of J-tube
History of Present Illness:
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
weeks ago at [facility] and most recently upsized days ago to a 18 Fr tube at [facility]. Mr. Santamaria presents with concerns for abdominal distension, pain, and concern for infection around his J-tube. Little improvement in leakage
with up-sizing of his J-tube. He complains of worsening abdominal distention and pain. No N/V. No fevers/chills.
Patient states that he has been very constipated. He has been passing some gas, cannot recall when he last had a BM.
Past Medical History
Past Medical History: Cancer (Stage IV GEJ cancer)
Past Surgical History: Other (J-tube placed)
Social History
Tobacco: Non-Smoker
Alcohol: None
Drug: None
Family History
Family History: Reviewed & Not Pertinent
Allergies / Home Medications
Allergy/AdvReac Type Severity Reaction Status Date / Time
No Known Allergies Allergy Verified 02/25/25 12:28
�Medication �Instructions �Recorded �Confirmed �Type
morphine concentrate 100 mg/5 mL 10 mg feeding tube Q4HPRN PRN 02/12/25 02/25/25 History
(20 mg/mL) oral solution severe pains
Review of Systems
-
A 10 point review of systems was completed, and was negative except as per HPI.
Physical Exam
Vital Signs
Temp Pulse Resp BP Pulse Ox
98.4 F 128 16 116/63 97
02/26/25 07:19 02/26/25 07:19 02/26/25 07:19 02/26/25 07:19 02/26/25 08:54
0802/26/25 02/27/25
06:59 06:59 06:59
Actual Weight 57.652 kg
Body Mass Index (BMI) 19.3
Lab Results
02/26/25 05:30
02/26/25 05:30
WBC 4.5 10^3/uL (4.8-10.8) L 02/26/25 05:30
Hgb 7.0 g/dL (13.0-18.0) L D 02/26/25 05:30
Hct 21.2 % (39.0-52.0) L 02/26/25 05:30
Plt Count 146 10^3/uL (130-400) 02/26/25 05:30
Abs Immat Gran (auto) 0.1 10^3/uL (0-0.05) H 02/25/25 12:39
Neutrophils % 91.2 % (42.2-75.2) H 02/25/25 12:39
Physical Exam
General: Other (Malnurished)
Respiratory: Non Labored Respirations
Cardiac: Regular Rhythm
GI: Soft, Non Tender, Distended (Palpable fluid) and Other (Non-peritoneal, J-tube with ostomy bag in place, leakage around tube, slight slack and less than ideally seated bumper)
Musculoskeletal: No Edema
Skin: Warm and Dry
Neuro: Nonfocal/Grossly Intact
Data Reviewed
-
CT Scan: Image Personally Visualized and interpreted and Report Reviewed by me
Labs: Labs Reviewed by me
Old Records: Reviewed
Assessment / Plan
-
Patient is a 70 yo M p/w persistent abdominal distension and leakage from J-tube site
Both his partial bowel obstruction, as well as leakage and distention are related to progression of underlying malignancy. No role for surgical intervention for correction of these issues. No role for surgical intervention as a relates to his
bowel obstruction given the advanced nature of his cancer. We discussed that leakage from a J-tube is not uncommon and will likely be a persistent issue for him. He tube has recently been upsized with no improvement in his symptoms. As previously
discussed, control with an ostomy device is likely his best option for managing this leakage. Recommend Oncology consult. Would consider Palliative care consult given the progression in his disease despite therapy. All questions answered. Please
call with any questions or concerns.
-- No role for surgical intervention
-- Tube reapposed to the abdominal wall
-- Wound/ostomy consult, would continue with current management and replace appliance as needed
-- Oncology consult
-- Consider Palliative care consult
-- Call with questions or concerns
--- NOTE | 2025-02-26 09:50 | PTCARENOTE ---
09:50 Transfer from Telemetry floor room 2139 to Room 3372 due to sustained Sinus Tachycardia at 122.
patient AAO x 3 able to let his needs known . Mucous membrane dry
Sinus Tachycardia at 122 No edema +pp
Abdomen distended. Hypoactive Bowel sounds x 4 Quadrants. J-Tube Left to L-I suctioning. draning brown output
Voiding in a urinal
Right chest port and Rt AC
pt oriented to room call lynn and phone within reach HOB elevated
per order LR 1 L bolus ; 1 unit PRBC for Hgb 7.0; Ducolex suppository adm
[2025-02-26 10:13] LABS: Glucose - Point of Care 99 mg/dl (70-99)
--- NOTE | 2025-02-26 10:16 | PTCARENOTE ---
Pt with HR up in 180s, fever overnight, worsening abdominal distention, Hgb dropped from 8.8 to 7.0 overnight. MD made aware, ICU tx order placed. Blood consent signed, ABG/lactic/T&S drawn. Pt sent down for obstruction series. Pt transferred to ICU
by this RN, skin assessment complete and bedside shift report given.
--- NOTE | 2025-02-26 10:29 | CM ---
Patient transferred to ICU from [address] [place] [address]. Reviewed the chart notes from previous admissions. Last admission 02/12-02/14. Patient resides alone in a two story home with two steps to enter. The patient is current with [facility]. The patient has a J-tube
and has tube feed and supplies through [facility]. The patient has no history of SNF. Patient's pharmacy of choice is the [facility]. CM continues to be available to patient/family and is monitoring medical plan for needs at
discharge.
Plan: Discharge plans will depend on the patient's progress.
[2025-02-26] MEDS: LR 1000 IV ×3 (10:52→22:30)
[2025-02-26] MEDS: DULCOLAX 10 MG RECTAL (10:57)
--- NOTE | 2025-02-26 11:21 | PTOTSP ---
Patient transferred from [facility] to ICU - will require updated PT orders to allow evaluation when medically stable for activity.
--- NOTE | 2025-02-26 11:26 | VNURNOTE ---
Chart reviewed. Patient is current with [facility]. Will continue to follow hospital course and DC plans.
[2025-02-26] MEDS: NSS IV (11:36)
--- NOTE | 2025-02-26 11:49 | PTCARENOTE ---
11: 45 Blood Transfusion : 1 unit PRBC in progress
--- NOTE | 2025-02-26 13:54 | W.PN.HOSP.TC ---
Today's Communication/Plan
-
Assessment / Plan
Assessment / Plan
NAD
Scleral Anicteric
MMM
No JVD
CTABL
RRR, S1/S2
Distended and tender throughout, BS+
J-tube with ostomy, leakage around J-tube
Warm, Dry
AAOx3
Calm
Anemia�normocytic without evidence of active bleeding. Still appears near to baseline and that 8.8 initial hemoglobin is likely hemoconcentrated labs as all 3 cell lineages are up
Chronic anemia likely secondary to GE malignancy, chemotherapy
1 unit PRBC is ordered as hypotensive tachycardic without evidence of active bleeding
Consent obtained placed in chart
Abdominal pain with leaking at the J-tube site
Likely precipitating sinus tachycardia in the 170s.
Would avoid use of AV babak blockers and allow for physiologic response.
Continue IV fluids as likely component of dehydration and underlying intra-abdominal pathology
Hypotension tachycardia
IV fluids
Avoid AV babak blocking agents
Likely response to intra-abdominal pathology and pain
Without evidence of acute bleeding or sepsis at this time
Leakage around J-tube site
IR consult to see if can be upsized
Protein calorie malnutrition on tube feeds at baseline in the setting of metastatic gastroesophageal carcinoma
Continue IV hydration
Tube feeds held due to leakage
Constipation
Provide bowel regimen
Upgrade from MedSurg to ICU
Discussed case with ICU and surgery
Anticipated Discharge: 24 - 48 hours
Subjective/Interval History
-
Date of Service: February 26, 2025
Seen and examined. Notified this morning hypotensive and tachycardic into the 170s
Overnight team treated with 500 cc bolus and IV Lopressor
Hemoglobin this morning 7.0
Objective Data
-
Labs:
Laboratory Results
02/26/25 02/26/25
05:30 08:54
WBC 4.5 L
Hgb 7.0 L D
Hct 21.2 L
Plt Count 146
HCO3 26.9
Sodium 132 L
Potassium 4.1
Chloride 97 L
Carbon Dioxide 27
BUN 52 H
Creatinine 0.9
Glucose 117 H
Calcium 7.9 L
Vital Signs:
Vital Signs
Temp Pulse Resp BP Pulse Ox
99.0 F 113 21 109/48 97
02/26/25 12:14 02/26/25 12:14 02/26/25 12:14 02/26/25 12:14 02/26/25 10:12
I&O
02/25/25 02/26/25 02/27/25
06:59 06:59 06:59
Intake Total 480 / 480 1125 / 1125
Output Total 530 / 530 950 / 950
Balance -50 / -50 175 / 175
--- NOTE | 2025-02-26 14:31 | PTCARENOTE ---
1 unit PRBC : Ended at 14:25 VSS: 98.8 (PO)-HR 12 ST; BP via left upper arm: 114/66; RR 26 -SpO2: 96%/2L
--- NOTE | 2025-02-26 15:18 | WOUNDNOTE ---
L BUTTOCK WITH FLASH
--- NOTE | 2025-02-26 15:20 | WOUNDNOTE ---
WON RN note: Patient admitted with malfunctioning J-tube, bowel obstruction.
See H&P for complete history.
PMH: ED Past Medical History: Cancer (Esophageal)
ED Past Surgical History: Other (J-tube)
Wound Location and type/assessment: Patient admitted with: leaking J tube for large amt of brownish fluid, pouch being used to contain drainage. J Tube attached to intermittent suction, less amt of drainage coming from tube, same color. Skin
surrounding tube site is red and irritated from drainage. Patient able to turn to side with assist. L buttock with stage 1 PI vs evolving DTI, small spot of light maroon discoloration. Patient reports area hurts on palpation. Using air cushion under
buttocks, repositioned to R semi side lying position. Heels intact.
Appetite: NPO.
Pressure redistribution devices in place: On air mattress, pillow placed under calves. Foams to heels to protect.
Plan: Appliance changed over feeding tube using Haley 2 1/4 2 piece urostomy. Applied skin prep and small Exuderm thin over excoriated skin on either side of tube on abdomen. Cut wafer(scored slits on sides) to fit under bumper. Cut hole in top
of pouch, threaded feeding tube through hole and sealed site with piece of Nia ring and silk tape. Re Connected FT to intermittent suction. Additional supplies left in rm and showed nurse Hilda how to do. L buttock applied small silicone foam then
larger sacral silicone foam to sacrum.
Pressure ulcer prevention measures reviewed with patient, states he understands.
Will confirm orders with hospitalist and updated nurse.
Updated care plan and will follow as needed.
Note to case management of equipment requested for discharge: VN
--- NOTE | 2025-02-26 15:26 | W.PN.UPDATE ---
Update Note
Progress Note Update
70 yo male with J tube in LLQ placed at [facility]. Since the last time I saw him he went to [facility] where they upsized his J tube to an 18Fr. IR was consulted for leaking around the J tube. He has an ostomy appliance and bag in place. On
CT scan it appears as if the balloon has migrated internally and the bumper is about 2 cm from the skin. On He does note a nurse cinched the bumper down against the skin
On exam he has a 18 Fr J tube in the LLQ. There is an ostomy appliance in place with leaking around the bumper. The bumper was cinched against the skin and the leaking improved. The ostomy appliance is still around the tube and the bag was emptied
to monitor output.
Will check in tomorrow and consider IR J tube change if it is still leaking
--- NOTE | 2025-02-26 18:10 | PTCARENOTE ---
per Dr Adrienne Jones hold [facility]
[2025-02-26 18:16] LABS: Hematocrit 23.5 % (39.0-52.0); Hemoglobin 7.8 g/dL (13.0-18.0); Mean Corp Hgb Conc. 33.2 g/dL (33.0-37.0); Mean Corpuscular Volume 87.0 fL (80.0-94.0); Platelet Count 151 10^3/uL (130-400); Red Cell Dist. Width 19.9 % (11.5-14.5)
--- NOTE | 2025-02-26 18:36 | PTCARENOTE ---
2 episodes of SVT Heart rate 183 patient asymptomatic: denies chest pain, denies palpitation, denies nausea. 1st episode: from 17:51 to 17:57; 2nd episode: 18:11 to 18:17. EKG: showed sinus Tachycardia with premature supraventricular complexes; Per
Dr Deleon: Metoprolol 2.5 mg IV Q 6 hrs Hold for SBP< 110.
Patient in bed. BP via Left Upper arm 111/58; Normal Sinus Tachycardia 135 RR 28
--- NOTE | 2025-02-26 19:40 | PTCARENOTE ---
received pt from [facility], assessments completed, J tube running to suction with out issue. patient has no c/o pain just mild abdominal discomfort. patient currently has fever 102 axillary, 100.9 oral. iv tylenol given. hr remains 120-130 w/
pvc's. no c/o chest pain or discomfort.
[2025-02-26 22:43] LABS: Hematocrit 20.1 % (39.0-52.0); Hemoglobin 6.9 g/dL (13.0-18.0)
[2025-02-26 22:46] LABS: Blood Urea Nitrogen 43 mg/dl (9-20); Calcium 7.7 mg/dl (8.4-10.2); Carbon Dioxide 27 mmol/L (22-30); Chloride 100 mmol/L (98-107); Estimated Creatinine Clearance 64 ml/min; Glucose 94 mg/dl (70-99); Potassium 4.0 mmol/L (3.5-5.1); Sodium 131 mmol/L (135-145); eGFR > 60.00
--- NOTE | 2025-02-26 23:03 | PTCARENOTE ---
patient having elevated HR as well as hypotention, boluls of LR given with effective results. Labs drawn, HgB dropped to 6.9, will start transfusion.
patient no longer having fever post iv tylenol, temp 98.9
[2025-02-27] VITALS (48 sets, daily range): BP systolic 81–141; BP diastolic 46–110; BMI 20.1
[2025-02-27] MEDS: LOPRESSOR IV ×4 (00:20→19:12)
[2025-02-27] MEDS: CALCIUM GLUCONATE 100 IV (02:54)
[2025-02-27] MEDS: LR 1000 IV (02:58)
[2025-02-27] MEDS: LOPRESSOR 2.5 MG IV (03:02)
--- NOTE | 2025-02-27 03:15 | PTCARENOTE ---
blood transfusion ended without issue, iv ca++ running, patient has fever 100.0 will give iv tylenol, patient had short 2 min run of SVT, resolved on own, one time 2.5ml dose of lopressor given as well.
[2025-02-27] MEDS: OFIRMEV 100 IV (03:57)
[2025-02-27] MEDS: NSS 500 IV (03:58)
[2025-02-27] MEDS: ZOFRAN 4 MG IV ×2 (04:22→14:35)
--- NOTE | 2025-02-27 04:57 | PTCARENOTE ---
patient remains hypotensive with periods of svt - 500ml bolus given, pt c/o mild nausea had some spit up. prn zofran given
[2025-02-27 05:04] LABS: Hematocrit 21.5 % (39.0-52.0); Hemoglobin 7.0 g/dL (13.0-18.0); Mean Corp Hgb Conc. 32.6 g/dL (33.0-37.0); Mean Corpuscular Volume 89.6 fL (80.0-94.0); Nucleated Red Blood Cells % 0.5 % (-); Platelet Count 149 10^3/uL (130-400); Red Cell Dist. Width 18.9 % (11.5-14.5)
[2025-02-27 05:29] LABS: ALT (SGPT) 17 U/L (0-50); AST (SGOT) 63 U/L (17-59); Albumin 2.3 g/dl (3.5-5.0); Alkaline Phosphatase 108 U/L (38-126); Blood Urea Nitrogen 47 mg/dl (9-20); Calcium 7.8 mg/dl (8.4-10.2); Carbon Dioxide 26 mmol/L (22-30); Chloride 103 mmol/L (98-107); Estimated Creatinine Clearance 64 ml/min; Glucose 94 mg/dl (70-99); Magnesium 2.0 mg/dl (1.6-2.3); Potassium 4.1 mmol/L (3.5-5.1); Sodium 134 mmol/L (135-145); Total Protein 4.8 g/dl (6.3-8.2); eGFR > 60.00
[2025-02-27] MEDS: PROTONIX IV 40 MG IV (08:16)
--- NOTE | 2025-02-27 08:19 | W.PN.HOSP.TC ---
Addendum entered and electronically signed by Mariya Taveras MD 03/01/25 09:55:
pneumonia versus aspiration pneumonitis versus fever related to progressive malignancy
Addendum entered and electronically signed by Mariya Taveras MD 02/28/25 07:06:
Left Buttock Stage 1 vs evolving DTI, POA
-appreciate wound care
Hypocalcemia
-repleted
Original Note:
Today's Communication/Plan
-
continue IVF, standing IV Metoprolol; VS better
1 unit PRBC this AM, repeat Hg this afternoon
RUQ US; fractionate bilirubin
Oncology consult
appreciate GS, IR and [employer]er consults
F/U IR recs on tube management
Assessment / Plan
Assessment / Plan
Mr. 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 Patient was last admitted to 02/12 - 02/14
for similar complaints. His J-tube was adjusted in IR and the leakage improved. Patient states that one week ago his J-tube completely fell out at home. The following day he presented to [facility] where the tube was replaced and upsized.
he continued to have issues with drainage around the tube and a collection device / ostomy bag was placed.
Abdomen/Pelvis CT
IMPRESSION:
Very large centrally necrotic malignant mass in the left upper quadrant of the abdomen in the setting of gastroesophageal carcinoma with direct invasion of the lateral left hepatic lobe. Increased size of this mass and the right hepatic lobe and
splenic metastases compared to the CT abdomen/pelvis from 01/20/2025.
Obstruction at the level of the gastroesophageal junction again suspected with circumferential wall thickening and fluid in the lumen of the distal esophagus.
Large volume colonic stool concerning for constipation.
Small bowel dilatation measuring up to 3.5 cm in diameter for which considerations include a developing bowel obstruction, enteritis, or adynamic ileus.
Small left pleural effusion.
Chest/Abdomen X-Ray
IMPRESSION: Findings suggesting left lower lobe pneumonia. Mild. Progressed.
Mild small bowel dilatation. Probable ileus. Developing obstruction cannot be excluded. Progressed.
Anemia�normocytic without evidence of active bleeding.
-Chronic anemia likely secondary to GE malignancy, chemotherapy
-ordered for 3rd unit PRBC this AM
-likely dilutional component as well
-repeat Hg this afternoon
Abdominal pain with leaking at the J-tube site
-appreciate IR Evaluation
-patient is s/p upsizing J tube with ostomy appliance and bag placement; s/p fixation bumper placement this admission with improvement in leaking. IR to check in today to consider IR J tube change
New elevated T. Bili today
-add on direct
-Abdominal US ordered
Metastatic gastroesophageal carcinoma
-evidence of progression last CT
-consult Oncology
Ileus seen on CT imaging
-no role for surgical intervention
Hypotension in setting of dehydration
-s/p IVF with improvement in pressure
SVT
-related to hypotension and pain
-standing IV Metoprolol
Protein calorie malnutrition on tube feeds at baseline in the setting of metastatic gastroesophageal carcinoma
Continue IV hydration
Tube feeds held due to leakage
Constipation
Provide bowel regimen
s/p rectal suppository with BM overnight
Upgrade from MedSurg to ICU
Discussed case with ICU and surgery
DVT PPx Lovenox subQ
FULL CODE
Anticipated Discharge: > 48 hours
Subjective/Interval History
-
Date of Service: February 27, 2025
had 2 BM overnight
denies nausea
has some RLQ abdominal tenderness
Objective Data
-
Labs:
Laboratory Results
02/26/25 02/26/25 02/27/25
08:54 22:24 04:49
WBC 5.8
Hgb 6.9 L* 7.0 L
Hct 20.1 L* 21.5 L
Plt Count 149
HCO3 26.9
Sodium 131 L 134 L
Potassium 4.0 4.1
Chloride 100 103
Carbon Dioxide 27 26
BUN 43 H 47 H
Creatinine 0.9 0.9
Glucose 94 94
Calcium 7.7 L 7.8 L
Total Bilirubin 15.5 H D
AST 63 H
ALT 17
Alkaline Phosphatase 108
Vital Signs:
Vital Signs
Temp Pulse Resp BP Pulse Ox
98.6 F 128 25 106/55 95
02/27/25 07:35 02/27/25 08:00 02/27/25 08:00 02/27/25 08:00 02/27/25 08:00
I&O
02/26/25 02/27/25 02/28/25
06:59 06:59 06:59
Intake Total 480 / 480 4510 / 4510
Output Total 530 / 530 1400 / 1400
Balance -50 / -50 3110 / 3110
Review of Systems
-
History Source: Patient
All other systems: Reviewed and negative
Physical Exam
-
General: Appears Chronically Ill and Other (jaundiced)
HEENT: PERRLA
Respiratory: Clear to Auscultation; Negative Wheezes
Cardiac: Tachycardic
GI: Other (distended, no significant tenderness RUQ, mild RLQ, no rebound or guarding; J tube with dark drainage in ostomy bag )
Skin: Warm and Dry; Negative Rash
Neuro: AO x 3
Psych: Calm
Data Reviewed
-
Diagnostic Radiology: Report Reviewed by me
Labs: Labs Reviewed by me
--- NOTE | 2025-02-27 08:44 | PTCARENOTE ---
0700 assumed care. BP 102/61 Sinus Tachycardia 135; RR 26 98%RA . Denies pain. PRBC 1 unit given
--- NOTE | 2025-02-27 09:43 | PN.CDI ---
CDI
- -
CDI:
Physician Documentation Request
Admit Date: 02/25/25 20:27
Dear Doctor Darcy,
Clinical Indicators:
Patient admitted with abdominal pain; PMH includes metastatic gastroesophageal carcinoma.
02/26 WOC RN skin/wound assessment: Left Buttock Stage 1 vs evolving DTI, POA
Treatment: Silicone border foam dressing
Physician documentation of the type and location of wounds is required for compliant documentation. Based on the above clinical findings and your assessment, please provide the following in your progress note:
1. Location of the ulcer/wound, including laterality.
2. Type (etiology) of ulcer/wound:
- Pressure (decubitus) ulcer
- Other, please specify
3. If a pressure ulcer, please also include the stage* of the ulcer:
- Stage 1 - Skin intact, non-blanchable redness
- Stage 2 - Partial thickness loss of dermis, includes intact or open blister
- Stage 3 - Full thickness tissue not including bone, tendon or muscle
- Stage 4 - Full thickness tissue loss, including exposed bone, tendon or muscle
- Unstageable - Full thickness loss in which the base of the ulcer is covered by slough (yellow, erickson, gaytan, green or brown) and/or eschar (erickson, brown or black) in the wound bed.
- Unable to determine
Use of terms such as suspected, likely, concern for, or probable (associated with a specific diagnosis that is being evaluated, monitored, or treated as if it exists) are acceptable and can be coded in the inpatient setting, when documented at the
time of discharge.
Thank you,
LAURIE Wellington RN
CDI Specialist
available via tiger text
Please use your independent medical judgment in providing your response.
*Source: National Pressure Ulcer Advisory Panel (NPUAP)
--- NOTE | 2025-02-27 09:43 | CON.ONC ---
Consultation
-
Date Consultation Requested: 02/27/25
Date Consultation Performed: 02/27/25
Requesting Provider: Dr.Erica Taveras
Performing Provider: Dr.Howard Gray
Reason for Consultation: hx of metastatic esophageal cancer
Impression
Impression
Esophageal adenocarcinoma with metastasis to bone, liver and spleen
J-tube site leakage
Anemia
Sinus tachycardia
Protein calorie malnutrition on tube feeding at baseline
Plan
Plan
#Esophageal adenocarcinoma with metastasis to bone, liver and spleen
#J-tube site leakage
# Anemia
- CT abdomen on 02/25/2025:Very large centrally necrotic malignant mass in the left upper quadrant of the abdomen in the setting of gastroesophageal carcinoma with direct invasion of the lateral left hepatic lobe. Increased size of this mass and the
right hepatic lobe and splenic metastases compared to the CT abdomen/pelvis from 01/20/2025.Obstruction at the level of the gastroesophageal junction, Small bowel dilatation
- Abdominal ultrasound pending due to elevated total bilirubin
-Hb today 7, Receiving 3rd unit PRBC, Hb recheck in afternoon
- Continue supportive care and pain control
- Consider palliative care consult
- IR consulted and will potentially consider J-tube change today
Patient History
History of Present Illness
This is a 69yo M patient presenting with past medical history of metastatic esophageal adenocarcinoma to bone on chemo and XRT who presented to [facility] for abdominal distention and leakage around his J-tube. His most recent
hospitalization at [facility] was from 02/12 - 02/14 for similar complaints. The patient states that a week ago his J-tube had fallen out and he had gone to [facility] where tube was replaced and upsized. Despite the tube replacement, he
continued to have drainage and presented to . He denies nausea, vomiting or fever/chills.
In the ED, CT abdomen showed dilated small bowel possible for developing bowel obstruction or ileus. He was found to also have significant tachycardia with drop in hemoglobin and as a result has been shifted for further care to ICU. He follows with
oncology Dr. Ramos outpatient and had a appointment last week which patient had missed. He has progression of disease in right shoulder and right iliac bone.
Past-Medical/Surgical History
[facility] skin cancer
[facility] skin cancer resection, jejunostomy 06/2024
Social never smoker, reduced ETOH intake after malignancy dx but prior to dx 10/day.
Family noncontributory
Patient Medication
�Medication �Instructions �Recorded �Confirmed �Last Taken �Type
morphine concentrate 100 mg/5 mL 10 mg feeding tube Q4HPRN PRN 02/12/25 02/25/25 Unknown History
(20 mg/mL) oral solution severe pains
Active Medications
Generic Name Dose Route Start Last Admin
Trade Name Freq PRN Reason Stop Dose Admin
Bisacodyl 10 mg 02/25/25 21:03
Bisacodyl 10 Mg Rectal Suppository RECTAL 03/25/25 21:02
DAILYPRN PRN
Constipation
Enoxaparin Sodium 40 mg 02/26/25 18:00 02/26/25 17:55
Enoxaparin Sodium 40 Mg/0.4 Ml Syringe SC 03/26/25 17:59 Not Given
QPM JUAN MANUEL
Lactated Ringer's 1,000 mls @ 75 mls/hr 02/26/25 12:00 02/27/25 02:58
Lr IV 1,000 mls
.[id number] JUAN MANUEL Administration
Acetaminophen 1,000 mg in 100 mls @ 400 mls/hr 02/27/25 03:38 02/27/25 03:57
Ofirmev IV 02/28/25 03:37 100 mls
Q6HPRN PRN Administration
fever>100.3/mild pain
Protocol
Metoprolol Tartrate 2.5 mg 02/26/25 18:35 02/27/25 06:08
Metoprolol 5 Mg/5 Ml Vial IV 03/26/25 18:34 Not Given
Q6 JUAN MANUEL
Morphine Sulfate 2 mg 02/25/25 21:03
Morphine 2 Mg/Ml Syringe IV 03/11/25 21:02
Q4HPRN PRN
Severe Pain
Ondansetron HCl 4 mg 02/25/25 21:03 02/27/25 04:22
Ondansetron 4 Mg/2 Ml Vial IV 03/25/25 21:02 4 mg
Q6HPRN PRN Administration
nausea and vomiting
Pantoprazole Sodium 40 mg 02/26/25 08:00 02/27/25 08:16
Pantoprazole Sodium 40 Mg/10 Ml Vial IV 03/26/25 07:59 40 mg
DAILY JUAN MANUEL Administration
Sodium Chloride 0 flush 02/26/25 04:00
Sodium Chloride 0.9% (Flush) Syringe IV 03/26/25 03:59
PER PROTOCOL JUAN MANUEL
Review of Systems
-
All Other Systems: Reviewed and Negative
Physical Exam
-
General: Appears Chronically Ill
Cardiology: S1 and S2
Pulmonary: Clear
GI: Distended and Other (tender, J-tube with ostomy bag in place, leakage around tube)
Extremities: Negative Edema
Neurology: Non Focal
Skin: Warm and Dry
Psych: Calm
Labs
Lab Results
WBC 5.8 10^3/uL (4.8-10.8) 02/27/25 04:49
RBC 2.40 10^6/uL (4.70-6.10) L 02/27/25 04:49
Hgb 7.0 g/dL (13.0-18.0) L 02/27/25 04:49
Hct 21.5 % (39.0-52.0) L 02/27/25 04:49
MCV 89.6 fL (80.0-94.0) 02/27/25 04:49
MCH 29.2 pg (27.0-31.0) 02/27/25 04:49
MCHC 32.6 g/dL (33.0-37.0) L 02/27/25 04:49
RDW 18.9 % (11.5-14.5) H 02/27/25 04:49
Plt Count 149 10^3/uL (130-400) 02/27/25 04:49
MPV 10.7 fL (7.4-10.4) H 02/27/25 04:49
Abs Immat Gran (auto) 0.0 10^3/uL (0-0.05) 02/27/25 04:49
Absolute Neuts (auto) 5.4 10^3/uL (1.4-6.5) 02/27/25 04:49
Absolute Lymphs (auto) 0.0 10^3/uL (1.2-3.4) L 02/27/25 04:49
Absolute Monos (auto) 0.2 10^3/uL (0.1-0.6) 02/27/25 04:49
Absolute Eos (auto) 0.0 10^3/uL (0-0.7) 02/27/25 04:49
Absolute Basos (auto) 0.1 10^3/uL (0-0.2) 02/27/25 04:49
Immature Gran % 0.7 % (0-0.5) H 02/27/25 04:49
Neutrophils % 94.1 % (42.2-75.2) H 02/27/25 04:49
Lymphocytes % 0.7 % (20.5-51.1) L 02/27/25 04:49
Monocytes % 3.1 % (1.7-9.3) 02/27/25 04:49
Eosinophils % 0.0 % (0-6) 02/27/25 04:49
Basophils % 1.4 % (0-2) 02/27/25 04:49
Creatinine 0.9 mg/dL (0.7-1.3) 02/27/25 04:49
Vital Signs
Vital Signs
Temp Pulse Resp BP Pulse Ox
98.9 F 126 28 112/64 95
02/27/25 08:56 02/27/25 08:56 02/27/25 08:56 02/27/25 08:56 02/27/25 08:00
--- NOTE | 2025-02-27 09:54 | PN.CDI ---
CDI
- -
CDI:
Physician Documentation Request
Admit Date: 02/25/25 20:27
Dear Doctor Darcy,
Clinical Indicators:
Patient admitted with abdominal pain; PMH includes metastatic gastroesophageal carcinoma.
Calcium gluconate 1 gram IV rider x 1 dose.
Calcium levels:
02/26/25 02/26/25 02/27/25
05:30 22:24 04:49
Calcium 7.9 L 7.7 L 7.8 L
Based on the above, could you clarify in the progress notes, the appropriate diagnosis, if significant, that supports the above abnormalities and additional evaluation, monitoring and/or treatment rendered:
Hypocalcemia
Abnormal lab value, clinically insignificant
Other, please specify
Use of terms such as suspected, likely, concern for, or probable (associated with a specific diagnosis that is being evaluated, monitored, or treated as if it exists) are acceptable and can be coded in the inpatient setting, when documented at the
time of discharge.
Thank you,
LAURIE Wellington RN
CDI Specialist
available via tiger text
Please use your independent medical judgment in providing your response.
--- NOTE | 2025-02-27 10:41 | CM ---
Addendum entered by Maria Esther Knowles 02/27/25 16:57:
patient now with hospice consult, patient brother asking to talk to hospice nurse, patient lives alone so he does not anticipate that patient would be able to go home. CM will send referral to Hospice for assessment.
Original Note:
Patient seen at bedside in ICU. Patient stated that nothing had changed from last admission. CM will confirm with [facility] and patient plan is for discharge home with [facility] and [facility]. [facility] CM will
continue to follow for discharge planning needs.
Plan; home with [facility]; pending confirmation and [facility] as needed with confirmation from agency.
--- NOTE | 2025-02-27 11:48 | W.PN.UPDATE ---
Update Note
Progress Note Update
Emergent evaluation for SVT
Heart rate noted to be around 198, MAP 72
Adenosine 6 mg IV stat given, patient's SVT switched to normal sinus rhythm only for few seconds then back in SVT
Another dose of adenosine 12 mg given again effect lasted only few seconds
A third dose of adenosine, 12 mg given, short lasting effect
Lopressor 5 mg IV push stat given. SVT converted to normal sinus rhythm, sinus tachycardia, susained. Heart rate around 112, MAP of 76. Patient stayed hemodynamically stable.
Cardiology consultation for further recommendation
Will continue Lopressor 2.5 mg IV Q6 scheduled if bilood pressure allows
--- NOTE | 2025-02-27 11:54 | PTCARENOTE ---
SVT 193:
At 11:30 SVT on telemetry Heart rate 193; BP 111/63 . patient denies palpitation AAO x3 denies nausea. Dr Deleon at bedside pt placed on defibrillator.
- 11:34 Adenosine 6mg IV Administered fast IV push via RT port. post adenosine SVT 193;
-11:38 Adenosine 12mg IV administered SVT 190's
-11:42 Adenosine 12 mg SVT 196 BP 98/48
-Metoprolol 5 mg IV push administered BP 101/69;
-post metoprolol pt in Normal Sinus Tachycardia Heart rate 119; BP 83/60 MaP 69
- Patient in bed AAO x 3; NPO, denies nausea
--- NOTE | 2025-02-27 12:37 | CON.CAR ---
Addendum entered and electronically signed by Khris Gifford MD 02/27/25 16:19:
Patient seen and examined in collaboration with [employer]; agree with below.
- 70-year-old male with metastatic esophageal cancer; cardiology consulted with SVT.
- Overall poor prognosis, unfortunately.
- Can continue IV Lopressor as ordered; it appears that comfort measures are now being pursued.
- Cardiology will remain available on an as-needed basis.
Original Note:
Consultation
Consultation Request
Date/Time Consultation Requested: 02/27/25 1141
Date/Time Consultation Performed: 02/27/25 1200
Requesting Provider: Dr. Taveras
Performing Provider: Emily DOMINGUEZ for Dr. Gifford
Reason for Consultation: SVT
Medical History
-
Chief Complaint: J-tube leakage, abdominal distension
History of Present Illness:
70 y/o male with metastatic esophageal cancer (has had chemo and radiation) who came in with leaking from J-tube, as well as abdominal distention. CT scan abnormal as detailed below. He was noted to have ST with periods of SVT. He received IV
metoprolol. He also was noted to have upqby-la-apkgcsn anemia with hgb as low as 6.9. He has received PRBC's this admit. We are consulted for pSVT that he had today, which required adenosine, followed by IV metoprolol. He did not feel the SVT. He
has sinus tachycardia at the time of my assessment.
Past Medical History
Past Medical History: Cancer
Social History
Tobacco: Non-Smoker
Family History
Family History: Reviewed & Not Pertinent
Allergies / Home Medications
Allergy/AdvReac Type Severity Reaction Status Date / Time
No Known Allergies Allergy Verified 02/25/25 12:28
�Medication �Instructions �Recorded �Confirmed �Type
morphine concentrate 100 mg/5 mL 10 mg feeding tube Q4HPRN PRN 02/12/25 02/25/25 History
(20 mg/mL) oral solution severe pains
Review of Systems
-
History Source: Patient
All other systems: Negative unless noted
Abdomen/GI: Other (distention, J tube leaking)
Physical Exam
Vital Signs
Temp Pulse Resp BP Pulse Ox
99.0 F 115 25 82/62 98
02/27/25 11:52 02/27/25 11:52 02/27/25 11:52 02/27/25 11:52 02/27/25 11:00
Lab Results
02/27/25 04:49
Physical Exam
General: No Apparent Distress and Other (jaundiced)
HEENT: Normocephalic
Respiratory: Clear (not on O2)
Cardiac: Regular Rhythm (tachycardia)
Musculoskeletal: No Edema
Skin: Warm and Dry
Neuro: AO x 3
Psych: Calm
Impression / Plan
-
Metastatic esophageal cancer:
-abnormal CT scan as below-per surgery team- no role for surgical intervention.
-J-tube in place, IR on the case
-management per oncology who is following
Anemia:
-s/p 3 units PRBC's this admit
-repeat hgb is pending
-w/u and management per primary team
pSVT:
-patient has been having periods of pSVT in the setting of acute illness. Today, rate was up to 190's and he required adenosine (6mg, 12 mg, 12 mg). He also received 5 mg IV metoprolol. Agree with IV metoprolol standing (I will also d/c hold for HR
<110 since he has not been getting it at times due to this). BP is borderline, so will need to monitor this. IV metoprolol requires intensive monitoring (telemetry, HR/BP).
-echo is ordered, I also ordered thyroid testing
NSVT:
-BB as above
-check echo
-mag and K+ are fine
Fever this admit, poss PNA on CXR:
-w/u and management per primary team
Data:
CT abdomen/pelvis: very large centrally necrotic malignant mass in the left upper quadrant of the abdomen in the setting of gastroesophageal carcinoma with direct invasion of the lateral left hepatic lobe. Increased size of this mass and the right
hepatic lobe and splenic metastases compared to the CT abdomen/pelvis from 01/20/2025. Obstruction at the level of the gastroesophageal junction again suspected with circumferential wall thickening and fluid in the lumen of the distal esophagus. Large
volume colonic stool concerning for constipation. Small bowel dilatation measuring up to 3.5 cm in diameter for which considerations include a developing bowel obstruction, enteritis, or adynamic ileus. Small left pleural effusion.
Data Reviewed
-
EKG: Tracing Personally Visualized and interpreted (ST with PAC's, [address] Scan: Report Reviewed by me (CT scan as noted)
Medical Tests (Nuc Med, Echo etc): Report Reviewed by me (echo ordered)
Labs: Labs Reviewed by me
--- NOTE | 2025-02-27 12:45 | W.PN.INTV ---
Today's Communication / Plan
Recommendations
- Lopressor 2.5 mg IV every 6 hours scheduled if blood pressure tolerates
- Hold subcu Lovenox in view of anemia requiring blood transfusion
- Start MiraLAX daily via feeding tube
- Continue IV fluid resuscitation with Ringer lactate
Assessment
-
#1. Sinus tachycardia with PVCs.
- Suspect tachycardia is a response to multiple underlying pathologies. Patient looked very dehydrated, BUN/creatinine ratio significantly elevated, dry mouth, decreased p.o. intake. Also anemia, abdominal distention, pain all of these factors can
contribute
- 02/26, Ringer lactate 1 L bolus stat, PRBCs , continue maintenance IV fluid at 75 mL/h, monitor response of heart rate to volume resuscitation
- Pain control. Rectal suppository given with 2 large bowel movements with decreased abdominal distention
- Continue telemetry monitoring for any arrhythmias. Potassium and magnesium level are normal
#1a. Paroxysmal SVT
- Patient having intermittent episodes of SVT which she abort spontaneously. On 02/27 patient had prolonged SVT with heart rate into 190s. Adenosine 6 mg followed by 12 and followed by a third dose of 12 mg given with only brief response to these
medications with underlying rhythm mild sinus tachycardia, patient quickly ramped up back to 190s. MAP stayed above 65, Lopressor 5 mg given following which SVT aborted, patient returned back to normal sinus rhythm and stayed hemodynamically
stable. Cardiology consultation requested.
- Continue scheduled Lopressor 2.5 mg IV every 6 hours if blood pressure tolerates
#2. Metastatic gastroesophageal carcinoma.
- Unfortunately patient has aggressive, metastatic disease despite chemotherapy
- Currently J-tube in place
- Overall prognosis guarded. Briefly discussed with patient regarding comfort focused care and hospice.
#3. Leakage around J-tube site.
- Increased abdominal pressure with large volume of stool and severe constipation likely also contributing
- General Surgery service on case, IR consult in place
- No surrounding cellulitis or purulence noted, monitor off antibiotics
#4. Protein calorie malnutrition, on tube feeding at baseline.
- Currently feeding is on hold due to leakage as well as severe constipation
- Continue IV hydration for now
- Start MiraLAX via feeding tube
#5. Anemia.
- Hemoglobin down to 6.9 overnight, received additional PRBC, total 2 units. Serial H&H.
- Monitor H&H closely and additional transfusion as needed
- Etiology likely multifactorial, gastroesophageal malignancy, chemotherapy contributing
- No obvious melena, hematochezia or hematemesis noted.
- Hold subcu Lovenox
Other medical diagnoses:
- Mild chronic hyponatremia, suggestive of SIADH with elevated urine Na and Urine osmolality
- J tube leakage and cellulitis of insertion site, 01/2025, treated with Antibiotics
DVT prophylaxis subcu Lovenox, GI prophylaxis Protonix 40 mg
Critical Care time 70 mins -- The patient is admitted for acute critical illness for the treatment of vital organ failure and/or prevention of further life-threatening conditions. Total care includes time spent in review of history, physical exam,
medications, hemodynamic/ventilator parameters, laboratory data, imaging and discussion with house staff, pharmacy, respiratory therapy, employment attorney, and nursing.
Data:
CT Abd/pelvis 02/2025: Very large centrally necrotic malignant mass in the left upper quadrant of the abdomen in the setting of gastroesophageal carcinoma with direct invasion of the lateral left hepatic lobe. Increased size of this mass and the
right hepatic lobe and splenic metastases compared to the CT abdomen/pelvis from 01/20/2025.
Obstruction at the level of the gastroesophageal junction again suspected with circumferential wall thickening and fluid in the lumen of the distal esophagus.
Large volume colonic stool concerning for constipation.
Small bowel dilatation measuring up to 3.5 cm in diameter for which considerations include a developing bowel obstruction, enteritis, or adynamic ileus.
Small left pleural effusion.
Abd wound culture 01/2025: Enterobacter, yeast and coagulase-negative Staph aureus.
Subjective Dataa
Subjective Data
Date of Service:
Date of Service: February 27, 2025
Subjective:
Patient comfortably lying in bed in no acute distress, reports feeling better after having 2 large bowel movements.
Review of Systems
Genitourinary: Other (No new symptoms reported)
Objective Data
Data Reviewed
Vital Signs / I&O / Oxygen:
Vital Signs
Temp Pulse Resp BP Pulse Ox
99.0 F 115 25 82/62 98
02/27/25 11:52 02/27/25 11:52 02/27/25 11:52 02/27/25 11:52 02/27/25 11:00
Intake and Output
02/26/25 02/27/25 02/28/25
06:59 06:59 06:59
Intake Total 480 / 480 4510 / 4585 810 / 810
Output Total 530 / 530 1400 / 1400 400 / 400
Balance -50 / -50 3110 / 3185 410 / 410
SaO2 98
Nasal Cannula flow liters per 4
minute
Physical Exam
General: Comfortable and Other (Scleral icterus)
HEENT: Normocephalic
Cardiovascular: S1-S2
Respiratory: Clear
GI: Distended (Less distended after having 2 large bowel movements)
Neurology: Awake and Alert
Labs/Micro/Reports
Lab Data
02/27/25 04:49
Laboratory Results
02/26/25
08:54
pH 7.56 H
pCO2 30 L
pO2 74 L
HCO3 26.9
O2 Delivery Level
--- NOTE | 2025-02-27 12:54 | PTCARENOTE ---
Family updated (sister) IR nursing staff made aware of recent SVT episode
--- NOTE | 2025-02-27 14:05 | PTCARENOTE ---
Patient vomited burgundy color emesis all liquid 200 cc/hr.
--- NOTE | 2025-02-27 14:24 | W.PN.UPDATE ---
Update Note
Progress Note Update
IR was consulted for J tube evaluation and change. We had an urgent case that needed to be done today so we will not be able to do J tube check and change today. Plan to hopefully do tomorrow. Maintain ostomy around the tube to manage
pericatheter leakage for now
[2025-02-27 15:22] LABS: Hemoglobin 11.5 g/dL (13.0-18.0)
[2025-02-27] MEDS: MIRALAX 17 GRAMS TUBE (15:36)
--- NOTE | 2025-02-27 15:36 | W.PN.UPDATE ---
Update Note
Progress Note Update
Met with patient and his brother at bedside. Patient expressed his wishes to pursue comfort focused care only going forward. He is understanding of his advanced malignancy and poor prognosis.
Patient's brother in agreement. Patient interested in pursuing Hospice care with the goal to be comfortable.
Plan to place comfort focused care order set.
Machine Overhauler service will be available as needed. D/w Hospitalist team.
[2025-02-27] MEDS: MORPHINE SULFATE 2 MG IV (15:57)
--- NOTE | 2025-02-27 16:01 | PTCARENOTE ---
Patient on comfort care . DNR [facility]
[2025-02-27] MEDS: LR IV (16:03)
--- NOTE | 2025-02-27 20:24 | W.PN.DEATH ---
Pronouncement of
-
Called to see patient to pronounce.
No spontaneous heart tones or respirations noted.
Patient not responsive to verbal stimuli.
Patient is pronounced .
Family at the bedside
Time of : 19:55
Date of : 02/27/25
Family Notified: Yes
--- NOTE | 2025-02-27 21:56 | PTCARENOTE ---
Pt. at 1953. Family at bedside. ANGELICA León notified and to bedside to pronounce.
Post mortem care provided. Pt. glasses placed in bag and sent to [facility] with patient. No other personal belongings in room.
NIKKIE notified- spoke with Dru Bravo- pt. is candidate for corneal donation.
Pt. transferred to [facility].
--- NOTE | 2025-02-28 09:40 | HOSPNOTE ---
Spoke with Artie last evening and was going to meet with him today 02/28 to admit inpatient hospice. Patient peacefully. I spoke with Artie (brother) this am and gave my condolences.
--- NOTE | 2025-03-01 07:48 | PN.CDI ---
CDI
- -
CDI:
Physician Documentation Request
Admit Date: 02/25/25 20:27
Dear Doctor Darcy,
Clinical Indicators:
The diagnosis of pneumonia was documented on 02/27 , but is not consistently noted in subsequent documentation.
02/26 CXR, 'Findings suggesting left lower lobe pneumonia. Mild. Progressed.'
02/27 Cardiology PN, 'Fever this admit, poss PNA on CXR...':
After careful study, please clarify the following:
Pneumonia is a likely, suspected, probable diagnosis
Pneumonia was ruled out
Other, please specify
Use of terms such as suspected, likely, concern for, or probable (associated with a specific diagnosis that is being evaluated, monitored, or treated as if it exists) are acceptable and can be coded in the inpatient setting, when documented at the
time of discharge.
Thank you,
LAURIE Wellington RN
CDI Specialist
available via tiger text
Please use your independent medical judgment in providing your response.
--- NOTE | 2025-03-01 09:17 | W.DCSUMMARY ---
Discharge Summary
Discharge Data
Date of Admission: 02/25/25
Date of Discharge: 02/27/25
-
Pending Results: No
Hospital Course
Time of : 19:55
Date of : 02/27/25
Family Notified: Yes
Primary care physician : Dr. Addis Pleitez
Cause of : Metastatic Esophageal Adenocarcinoma
Hospital Course :
Mr. Crikcet Santamaria is a 70 yo man with hx metastatic esophageal adenocarcinoma on chemo and XRT who presented to ED complaining of abdominal distention, fatigue and ongoing leakage around his J-tube site.
CT scan with finding of large necrotic malignant mass and increased size of this mass and right hepatic lobe and splenic metastases compared to CT one month prior. Large volume of stool concerning for constipation. Patient was admitted to medicine
and given a bowel regimen for constipation. Wound care and IR consulted for further management of J tube leakage.
Hospital course complicated by SVT and acute anemia without evidence of external bleeding. He was transferred to the ICU where he received PRBC transfusion, standing IV Metoprolol as BP allowed. His heart rate went up to 190's requiring IV
Adenosine 6mg x 1, 12mg x 2, Lopressor with improvement.
In setting of patient's discomfort, progressive malignancy and unstable vital signs with SVT, decision made for transition to comfort care. Patient's brother was involved in this conversation.
He was given morphine and later that evening with family at bedside.
Important imaging findings :
Abdomen/Pelvis CT
IMPRESSION:
Very large centrally necrotic malignant mass in the left upper quadrant of the abdomen in the setting of gastroesophageal carcinoma with direct invasion of the lateral left hepatic lobe. Increased size of this mass and the right hepatic lobe and
splenic metastases compared to the CT abdomen/pelvis from 01/20/2025.
Obstruction at the level of the gastroesophageal junction again suspected with circumferential wall thickening and fluid in the lumen of the distal esophagus.
Large volume colonic stool concerning for constipation.
Small bowel dilatation measuring up to 3.5 cm in diameter for which considerations include a developing bowel obstruction, enteritis, or adynamic ileus.
Small left pleural effusion.
Chest/Abdomen X-Ray
IMPRESSION: Findings suggesting left lower lobe pneumonia. Mild. Progressed.
Mild small bowel dilatation. Probable ileus. Developing obstruction cannot be excluded. Progressed.
Procedure findings :
Discharge Plan
-
Patient Disposition:
Date/Time
Date/Time: 02/27/25 19:55
Discharge Date and Time
Discharge Date/Time: 02/27/25 19:55
Print Language: [place]
== END 2025-02-27 19:55 | disposition expired | DRG 374 ==
LOC: ICU 20:27
PROVIDERS: Hospitalist; Nurse Practitioner Family; Student in an Organized Health Care Education/Training Program; ADMITTING PHYSICIAN Hospitalist; ATTENDING PHYSICIAN Student in an Organized Health Care Education/Training Program; CONSULT PHYSICIAN Internal Medicine; CONSULT PHYSICIAN Internal Medicine Hematology & Oncology; EMERGENCY PHYSICIAN Emergency Medicine; FAMILY PHYSICIAN Family Medicine; OTHER PHYSICIAN Surgery
PROC: 30243N1 Transfusion of Nonautologous Red Blood Cells into Central Vein, Percutaneous Approach (ICD-10-PCS; 2025-02-26)
PROC: 30233N1 Transfusion of Nonautologous Red Blood Cells into Peripheral Vein, Percutaneous Approach (ICD-10-PCS; 2025-02-27)
DX: C16.0 Malignant neoplasm of cardia (principal); J18.9 Pneumonia, unspecified organism; J69.0 Pneumonitis due to inhalation of food and vomit; K94.13 Enterostomy malfunction; K56.7 Ileus, unspecified; C79.51 Secondary malignant neoplasm of bone; C78.7 Secondary malignant neoplasm of liver and intrahepatic bile duct; C78.89 Secondary malignant neoplasm of other digestive organs; E87.1 Hypo-osmolality and hyponatremia; K31.1 Adult hypertrophic pyloric stenosis; E46 Unspecified protein-calorie malnutrition; I47.19 Other supraventricular tachycardia; I47.20 Ventricular tachycardia, unspecified; I96 Gangrene, not elsewhere classified; Z51.5 Encounter for palliative care; D63.0 Anemia in neoplastic disease; L89.321 Pressure ulcer of left buttock, stage 1; E83.51 Hypocalcemia; I49.3 Ventricular premature depolarization; E86.0 Dehydration; I95.89 Other hypotension; Y84.8 Other medical procedures as the cause of abnormal reaction of the patient, or of later complication, without mention of misadventure at the time of the procedure; Y73.2 Prosthetic and other implants, materials and accessory gastroenterology and urology devices associated with adverse incidents; Y92.9 Unspecified place or not applicable; Z60.2 Problems related to living alone; Z92.21 Personal history of antineoplastic chemotherapy; Z92.3 Personal history of irradiation; Z68.20 Body mass index [BMI] 20.0-20.9, adult; Z85.828 Personal history of other malignant neoplasm of skin
CPT/HCPCS: 36600; 74022; 74177; 76700; 80048; 80053; 82248; 82805; 82962; 83605; 83735; 84439; 84443; 85014; 85018; 85025; 85027; 86850; 86900; 86901; 86920; 93005; 99285; J0153; P9016; Q9967